=== PATIENT | male | born 1955 | race Caucasian/White ===

== ENCOUNTER 2016-08-07 09:38 | Emergency (ER) | payer MEDICARE, OTHER ==
[~2016-08-07 09:38] MED LIST: ARIC10TA PO; BETAM.05%T TOPICAL; CLOP75 PO; DEPA500T3; DIPH50TA PO; FENO145T2 PO; IBUP400T20 PO; LEVO50TA4 PO; LEXA5TAB PO; MEMA10 PO; METF500 PO; MILKSUS5 PO; NOVO7030P2 SQ; XANA0.5T PO
[2016-08-07 09:43] VITALS: BP 111/69; PULSE 74; RESP 20; O2SAT 99
[2016-08-07 09:46] VITALS: TEMP 97.7
[2016-08-07 10:08] LABS: BASOPHIL % 0.8 % (0.0-2.0); EOSINOPHIL # 0.2 TH/MM3 (0-0.4); EOSINOPHIL % 3.8 % (0.0-4.0); HEMATOCRIT 37.2 % (39.0-51.0); HEMO FLAGS DIFF FINAL; LYMPH % 24.1 % (9.0-44.0); LYMPHOCYTE # 1.1 TH/MM3 (1.0-4.8); MEAN CELL VOLUME 93.8 FL (80.0-100.0); MEAN CORPUSCULAR HEMOGLOBIN 30.8 PG (27.0-34.0); MEAN CORPUSCULAR HGB CONC 32.9 % (32.0-36.0); MONO % 8.3 % (0.0-8.0); PLATELET COUNT 169 TH/MM3 (150-450); RED BLOOD COUNT 3.96 MIL/MM3 (4.50-5.90); WHITE BLOOD COUNT 4.7 TH/MM3 (4.0-11.0)
[2016-08-07 10:18] LABS: PROTHROMBIN TIME - PATIENT 11.5 SEC (9.8-11.6)
[2016-08-07 10:19] LABS: APTT (PATIENT) 24.8 SEC (24.3-30.1)
--- NOTE | 2016-08-07 10:27 | PD ---
HPI Chief Complaint: Medical Clearance Time Seen by Provider: 09:45 Travel History International Travel<30 days: No Contact w/Intl Traveler<30days: No Traveled to known affect area: No History of Present Illness HPI 61-year-old male was brought in for local [facility] for evaluation of an equal pupils. detention staff noticed patient has unequal pupils this morning. Patient otherwise denies any new complaint. Patient denies any headache. Patient denies any visual change. Patient states that he has intermittent left-sided chest pain for the past several weeks. Patient denies abdominal pain. Patient denies any nausea vomiting diarrhea. Patient denies any fever chills. Patient denies any new focal weakness and numbness of extremity. Patient has multiple medical problem including history of psoriasis , anxiety depression, dementia, chronic tachycardia, GERD, chronic renal disease , dyslipidemia, COPD, status post CVA, status post DC, hypertension, seizure, thyroid disease, GI bleed. Patient status post bilateral cataract surgery in the past. Patient has history of CAD status post CABG and heart valve replacement. Patient is on Plavix. PFSH Past Medical History Arthritis: Yes (SCIATICA) Asthma: No Autoimmune Disease: Yes (PSORIASIS) Blood Disorders: Yes ( GI BLEED) Anxiety: Yes Depression: Yes Heart Rhythm Problems: Yes (CHRONIC TACHYCARDIA PER MEDICAL RECORD) High Cholesterol: Yes Chemotherapy: No Chest Pain: Yes COPD: Yes Cerebrovascular Accident: Yes Dementia: Yes Diminished Hearing: No Endocrine: Yes Gastrointestinal Disorders: Yes (HX GI BLEED WITH BLOOD TRANSFUSION, HEMATEMESIS) GERD: Yes Glaucoma: No Genitourinary: Yes Hepatitis: No Hiatal Hernia: No Hypertension: Yes Immune Disorder: No Implanted Vascular Access Dvce: Yes Kidney Stones: No Musculoskeletal: Yes Neurologic: Yes Reproductive: No Respiratory: Yes (HX ACENETOBACTOR BAUMANNI SPUTUM 02/2004,MRSA 01/2004) Integumentary: Yes (PSORIASIS) Myocardial Infarction: Yes Radiation Therapy: No Sickle Cell Disease: No Sleep Apnea: No Thyroid Disease: Yes Ulcer: Yes (STOMACH ) Tetanus Vaccination: < 5 Years Past Surgical History Abdominal Surgery: Yes (BOWEL RESECTION ) AICD: No Appendectomy: Yes Arteriovenous Shunt: No Body Medical Devices: HEART VALVE REPLACED Cardiac Surgery: Yes (CABG, AORTIC VALVE REPLACEMENT ) Cholecystectomy: Yes (2003) Coronary Artery Bypass Graft: Yes (2 VESSELS- 2005) Ear Surgery: Yes (CATARACTS DAY REMOVED PER MEDICAL RECORD) Endocrine Surgery: No Eye Surgery: Yes Genitourinary Surgery: No Gynecologic Surgery: No Insulin Pump: No Joint Replacement: No Oral Surgery: No Pacemaker: No Thoracic Surgery: Yes Other Surgery: Yes (PER MEDICAL RECORD) Social History Alcohol Use: No Tobacco Use: No Substance Use: No (PER MEDICAL RECORD) Allergies-Medications (Allergen,Severity, Reaction): Coded Allergies: Ambien (Verified Allergy, Severe, AGITATION/ HALLUCINATIONS, 07/25/15) Morphine (Verified Allergy, Severe, Shortness of Breath, 07/25/15) Ultram (Verified Allergy, Severe, Hives, 07/25/15) *MDRO Multi-Drug Resistant Organism (Verified Allergy, Unknown, 07/25/15) Acinetobacter baumannii MRSA Stenotrophomonas maltophilia Uncoded Allergies: BANDAIDES (Adverse Reaction, Intermediate, SKIN BLISTERS AREAS OF CONTACT, 05/04/10) TAPE-ALL EXCEPT PAPER (Adverse Reaction, Intermediate, SKIN BLISTERS AREAS OF CONTACT, 05/04/10) Reported Meds & Prescriptions Reported Meds & Active Scripts Active Namenda (Memantine HCl) 10 Mg Tab 10 Mg PO BID 15 Days Diprosone (Betamethasone Dipropionate) 15 Gm Cr 1 Applic TOPICAL BID 30 Days Plavix (Clopidogrel Bisulfate) 75 Mg Tab 37.5 Mg PO DAILY 0 Days Aricept (Donepezil HCl) 10 Mg Tab 10 Mg PO HS 15 Days Reported Milk Of Magnesia (Magnesium Hydroxide) 30 Ml Susp 30 Ml PO DAILY PRN Ibuprofen 400 Mg Tab 400 Mg PO Q8HR NEB PRN Diphenhydramine 50 mg 50 Mg Tab 50 Mg PO HS PRN Fenofibrate 145 Mg Tab 145 Mg PO DAILY Levothyroxine 50 mcg (Levothyroxine Sodium) 50 Mcg Tab 50 Mcg PO DAILY Lexapro (Escitalopram Oxalate) 5 Mg Tab 5 Mg PO DAILY Xanax 0.5 mg (Alprazolam) Alprazolam 0.5 mg Tab 1 Tab PO Q6H Depakote (Divalproex Sodium) 500 Mg Juan 3,000 Mg HS Novolin 70/30 (Insulin Human Isoph/Insulin Regular) 100 Units/Ml Inj 0 SQ DIRECTED Sliding Scale As Directed. Glucophage 500 mg (Metformin HCl) 500 Mg Tab 500 Mg PO BID Review of Systems General / Constitutional: No: Fever Eyes: No: Visual changes HENT: No: Headaches Cardiovascular: Positive: Chest Pain or Discomfort Respiratory: No: Shortness of Breath Gastrointestinal: No: Abdominal Pain Genitourinary: No: Dysuria Musculoskeletal: No: Pain Skin: No Rash Neurologic: No: Weakness Psychiatric: No: Depression Endocrine: No: Polydipsia Hematologic/Lymphatic: No: Easy Bruising Physical Exam Narrative GENERAL: Well-nourished, well-developed patient. SKIN: Warm and dry. HEAD: Normocephalic. EYES: No scleral icterus. No injection or drainage. Right eye pinpoint pupil, reactive. Left eye pupil is deformed secondary to cataract surgery. NECK: Supple, trachea midline. No JVD or lymphadenopathy. CARDIOVASCULAR: Regular rate and rhythm without murmurs, gallops, or rubs. RESPIRATORY: Breath sounds equal bilaterally. No accessory muscle use. GASTROINTESTINAL: Abdomen soft, non-tender, nondistended. MUSCULOSKELETAL: No cyanosis, or edema. BACK: Nontender without obvious deformity. No CVA tenderness. Neurologic exam: Patient's awake, oriented to place and person. Patient can move all extremity with weakness, however equally. Deep tendon reflexes +2 and equal. Negative Babinski. Data Data Last Documented VS Vital Signs Date Time Temp Pulse Resp B/P Pulse Ox O2 Delivery O2 Flow Rate FiO2 08/07/16 10:36 98 08/07/16 09:46 97.7 08/07/16 09:43 74 20 111/69 Orders Complete Blood Count With Diff (08/07/16 09:45) Comprehensive Metabolic Panel (08/07/16 09:45) Creatine Kinase (Cpk) (08/07/16 09:45) Troponin I (08/07/16 09:45) Prothrombin Time / Inr (Pt) (08/07/16 09:45) Act Partial Throm Time (Ptt) (08/07/16 09:45) Urinalysis - C+S If Indicated (08/07/16 09:45) Cath For Specimen (08/07/16 09:45) Chest, Single Ap (08/07/16 09:45) Ct Brain W/O Iv Contrast(Rout) (08/07/16 09:45) Iv Access Insert/Monitor (08/07/16 09:45) Ecg Monitoring (08/07/16 09:45) Oximetry (08/07/16 09:45) Urine Culture (08/07/16 09:55) Electrocardiogram (08/07/16 07:43) Labs Laboratory Tests Test 08/07/16 08/07/16 09:55 10:40 White Blood Count 4.7 TH/MM3 Red Blood Count 3.96 MIL/MM3 Hemoglobin 12.2 GM/DL Hematocrit 37.2 % Mean Corpuscular Volume 93.8 FL Mean Corpuscular Hemoglobin 30.8 PG Mean Corpuscular Hemoglobin 32.9 % Concent Red Cell Distribution Width 15.0 % Platelet Count 169 TH/MM3 Mean Platelet Volume 9.0 FL Neutrophils (%) (Auto) 63.0 % Lymphocytes (%) (Auto) 24.1 % Monocytes (%) (Auto) 8.3 % Eosinophils (%) (Auto) 3.8 % Basophils (%) (Auto) 0.8 % Neutrophils # (Auto) 3.0 TH/MM3 Lymphocytes # (Auto) 1.1 TH/MM3 Monocytes # (Auto) 0.4 TH/MM3 Eosinophils # (Auto) 0.2 TH/MM3 Basophils # (Auto) 0.0 TH/MM3 CBC Comment DIFF FINAL Differential Comment Prothrombin Time 11.5 SEC Prothromb Time International 1.0 RATIO Ratio Activated Partial 24.8 SEC Thromboplast Time Urine Color YELLOW Urine Turbidity HAZY Urine pH 7.5 Urine Specific Grand Chain 1.013 Urine Protein TRACE mg/dL Urine Glucose (UA) NEG mg/dL Urine Ketones NEG mg/dL Urine Occult Blood TRACE Urine Nitrite NEG Urine Bilirubin NEG Urine Urobilinogen LESS THAN 2.0 MG/DL Urine Leukocyte Esterase LARGE Urine RBC 10 /hpf Urine WBC 23 /hpf Urine Squamous Epithelial <1 /hpf Cells Urine Amorphous Sediment RARE Urine Bacteria RARE /hpf Microscopic Urinalysis Comment CULTURE INDICATED Sodium Level 144 MEQ/L Potassium Level 4.2 MEQ/L Chloride Level 108 MEQ/L Carbon Dioxide Level 28.3 MEQ/L Anion Gap 8 MEQ/L Blood Urea Nitrogen 13 MG/DL Creatinine 1.13 MG/DL Estimat Glomerular Filtration 66 ML/MIN Rate Random Glucose 122 MG/DL Calcium Level 9.0 MG/DL Total Bilirubin 0.4 MG/DL Aspartate Amino Transf 12 U/L (AST/SGOT) Alanine Aminotransferase 11 U/L (ALT/SGPT) Alkaline Phosphatase 53 U/L Total Creatine Kinase 17 U/L Troponin I LESS THAN 0.02 NG/ML Total Protein 6.3 GM/DL Albumin 2.6 GM/DL MDM Medical Decision Making Medical Screen Exam Complete: Yes Emergency Medical Condition: Yes Interpretation(s) 12:[address] of the brain shows no acute pathology. Chest x-ray shows no acute process. CBC within normal limit. CMP within normal limit. Cardiac enzymes are normal. UA positive with WBC RBC and bacteria Differential Diagnosis Differential diagnosis including dehydration, electrolyte abnormality, atypical chest pain, angina, DC, PE, pneumothorax, TIA, CVA, UTI, sepsis. Narrative Course 61-year-old male was riding by EMS for evaluation of unequal pupils. Patient status post cataract surgery. Patient also mentioned a left-sided chest pain for the past several weeks. Diagnosis Primary Impression: UTI (urinary tract infection) Qualified Code: N30.00 - Acute cystitis without hematuria Patient Instructions: General Instructions Additional Instructions: Bactrim DS as directed. Follow-up with personal physician. Return as needed. Med/Other Pt SpecificInfo: Prescription(s) given Scripts Sulfamethoxazole-Trimethoprim (Bactrim DS)800-160 Mg Tab1 Tab PO BID #14 TAB Prov:Jonathan Haro MD 08/07/16 Disposition: 01 DISCHARGE HOME Condition: Stable Jonathan Haro MD Aug 07, 2016 10:27
[2016-08-07 10:28] LABS: BACTERIA, URINE RARE /hpf; BLOOD, URINE TRACE (NEG); COMMENT (UR) CULTURE INDICATED; CULTURE IF INDICATED CULTURE INDICATED; GLUCOSE,URINE NEG (NEG); KETONE, URINE NEG (NEG); NITRITE,URINE NEG (NEG); PH, URINE 7.5 (5.0-8.5); SQUAMOUS EPITHELIAL CELL URINE <1 /hpf (0-5); URINE COLOR YELLOW (YELLW/STRAW)
[2016-08-07 10:36] VITALS: O2SAT 98
--- NOTE | 2016-08-07 10:40 | RADRPT ---
EXAM DATE/TIME: 08/07/2016 10:06 [facility] COMPARISON: CHEST SINGLE AP, April 08, 2015, 10:30. INDICATIONS : Chest Pain MEDICAL HISTORY : Hypertension. Myocardial infarction. Chronic obstructive pulmonary disease. SURGICAL HISTORY : CABG. Valve replacement ENCOUNTER: Initial ACUITY: 1 day PAIN SCORE: 7/10 LOCATION: Bilateral chest FINDINGS: A single view of the chest demonstrates the lungs to be symmetrically aerated without evidence of mas s, infiltrate or effusion. Median sternotomy wires are noted. Prosthetic aortic valve is identified. The cardiomediastinal contours are otherwise unremarkable. Osseous structures are intact. CONCLUSION: No acute disease. Status post aortic valve replacement. Boom Mcelroy MD on August 07, 2016 at 10:35 Board Certified Radiologist. This report was verified electronically.
--- NOTE | 2016-08-07 10:45 | RADRPT ---
EXAM DATE/TIME: 08/07/2016 10:30 [facility] COMPARISON: CT BRAIN W/O CONTRAST, September 17, 2015, 14:58. INDICATIONS : Altered mental status. Unequal pupils. RADIATION DOSE: 40.22 CTDIvol (mGy) MEDICAL HISTORY : Dementia. Cerebrovascular disease. Cardiovascular diseaseAnoxic brain injury. SURGICAL HISTORY : None. ENCOUNTER: Initial ACUITY: 1 day PAIN SCALE: 0/10 LOCATION: cranial TECHNIQUE: Multiple contiguous axial images were obtained of the head. Using automated exposure control and adj ustment of the mA and/or kV according to patient size, radiation dose was kept as low as reasonably a chievable to obtain optimal diagnostic quality images. FINDINGS: CEREBRUM: Periventricular areas of low-attenuation are seen. The ventricles are normal for age. No evidence of midline shift, mass lesion, hemorrhage or acute infarction. No extra-axial fluid collections are se en. POSTERIOR FOSSA: The cerebellum and brainstem are intact. The 4th ventricle is midline. The cerebellopontine angle i s unremarkable. EXTRACRANIAL: The visualized portion of the orbits is intact. SKULL: The calvaria is intact. No evidence of skull fracture. CONCLUSION: 1. Nonspecific white matter changes. 2. No acute intracranial abnormality. Salvatore Galvez MD on August 07, 2016 at 10:42 Board Certified Radiologist. This report was verified electronically.
[2016-08-07 11:15] LABS: ANION GAP 8 MEQ/L (5-15); AST (GOT) 12 U/L (15-37); BICARBONATE 28.3 MEQ/L (21.0-32.0); BLOOD UREA NITROGEN 13 MG/DL (7-18); CHLORIDE 108 MEQ/L (98-107); GLOMERULAR FILTRATION RATE 66 ML/MIN (>89); POTASSIUM 4.2 MEQ/L (3.5-5.1); SODIUM (NA) 144 MEQ/L (136-145)
[2016-08-07 11:20] LABS: ALKALINE PHOSPHATASE 53 U/L (45-117); ALT (GPT) 11 U/L (12-78); TOTAL BILIRUBIN ADULT 0.4 MG/DL (0.2-1.0)
[2016-08-07 11:27] LABS: CREATINE KINASE 17 U/L (39-308)
[2016-08-07] MEDS ORDERED: BACT800T5 PO (12:16)
[2016-08-07] MEDS ORDERED: SULFAMETHOXAZOLE-TRIMETHOPRIM DS 800-160 MG TAB PO ONE (12:30)
--- NOTE | 2016-08-07 14:58 | EKG ---
Date Performed: 08/07/2016 Time Performed: 07:43:39 PTAGE: 61 years EKG: Sinus rhythm Compared to prior tracing no significant change NORMAL ECG PREVIOUS TRACING 09/17/2015 @ 17.20.54 DOCTOR: Ran Lael Interpretating Date/Time 08/07/2016 14:54:56
[2016-08-07] MEDS ORDERED: RANI150T PO (15:41)
[2016-08-07] MEDS ORDERED: NOVORP2 SQ (15:41)
[2016-08-07] MEDS ORDERED: POTA10SO12 PO (15:53)
[2016-08-07] MEDS ORDERED: LACT10SO PO (15:56)
[2016-08-07] MEDS ORDERED: FENO48TA PO (15:56)
[2016-08-07] MEDS ORDERED: VALP250S2 PO (16:00)
[2016-08-07] MEDS ORDERED: RISP1TAB2 PO (16:00)
[2016-08-07] MEDS ORDERED: ALBU.5I NEB (16:00)
[2016-08-07] MEDS ORDERED: ALPR0.5T3 PO (16:20)
[2016-08-07] MEDS ORDERED: OMEP20TA PO (16:20)
[2016-08-07] MEDS ORDERED: CLOP75TA PO (16:20)
[2016-08-07] MEDS ORDERED: TRAZ50TA12 PO (16:20)
[2016-08-07] MEDS ORDERED: VITA1000 PO (16:20)
[2016-08-07] MEDS ORDERED: DONE10TA7 PO (16:20)
[2016-08-07] MEDS ORDERED: TRID0.1C TOPICAL (16:20)
[2016-08-07] MEDS ORDERED: LEVO50TA4 PO (16:20)
[2016-08-07] MEDS ORDERED: GLUC0.8I2 IM (16:27)
[2016-08-07] MEDS ORDERED: SKIN1CRE2 TOP (16:27)
[2016-08-07] MEDS ORDERED: NORC5TAB PO (16:27)
[2016-08-07] MEDS ORDERED: ENBR50IN2 SQ (16:27)
[2016-08-07] MEDS ORDERED: GLUC40GE PO (16:31)
[2016-08-07] MEDS ORDERED: METF500T PO (16:32)
[2016-08-07] MEDS ORDERED: IBUP400T20 PO (16:35)
[2016-08-07] MEDS ORDERED: MILKSUS PO (16:35)
== END 2016-08-07 17:25 | disposition home or self-care (01) ==
LOC: NEPA 09:38
DX: N39.0 Urinary tract infection, site not specified (principal); B96.29 Other Escherichia coli [E. coli] as the cause of diseases classified elsewhere; M54.30 Sciatica, unspecified side; L40.9 Psoriasis, unspecified; E78.00 Pure hypercholesterolemia, unspecified; I12.9 Hypertensive chronic kidney disease with stage 1 through stage 4 chronic kidney disease, or unspecified chronic kidney disease; I25.2 Old myocardial infarction; Z95.2 Presence of prosthetic heart valve; Z95.1 Presence of aortocoronary bypass graft; Z86.73 Personal history of transient ischemic attack (TIA), and cerebral infarction without residual deficits
CPT/HCPCS: 70450; 71010; 80053; 81001; 82550; 84484; 85025; 85610; 85730; 87077; 87086; 87186; 93005; 99285; P9612

== ENCOUNTER 2017-11-01 19:23 | Emergency (ER) | payer MEDICARE, OTHER ==
[~2017-11-01] VITALS: Ht 170.2 cm; Wt 80.0 kg
[~2017-11-01 19:23] MED LIST changes: +ALBU.5I NEB; +ALPR0.5T3 PO; -ARIC10TA PO; +BACT800T5 PO; -BETAM.05%T TOPICAL; -CLOP75 PO; +CLOP75TA PO; -DEPA500T3; -DIPH50TA PO; +DONE10TA7 PO; +ENBR50IN2 SQ; -FENO145T2 PO; +FENO48TA PO; +GLUC0.8I2 IM; +GLUC40GE PO; +IBUP1TAB5 PO; -IBUP400T20 PO; +LACT10SO PO; -LEXA5TAB PO; -MEMA10 PO; -METF500 PO; +METF500T PO; +MILKSUS PO; -MILKSUS5 PO; +NORC5TAB PO; -NOVO7030P2 SQ; +NOVORP2 SQ; +OMEP20TA93 PO; +POTA10SO12 PO; +RANI150T PO; +RISP1TAB2 PO; +SKIN1CRE2 TOP; +TRAZ50TA12 PO; +TRID0.1C TOPICAL; +VALP250S2 PO; +VITA1000 PO; -XANA0.5T PO
[2017-11-01 19:52] VITALS: BP 110/70; PULSE 88; RESP 18; TEMP 98.7; O2SAT 97
--- NOTE | 2017-11-01 19:53 | PD ---
HPI Chief Complaint: Grace act Time Seen by Provider: 19:39 Travel History International Travel<30 days: No Contact w/Intl Traveler<30days: No Traveled to known affect area: No History of Present Illness HPI 62-year-old white male presents emergency department from an [facility] under a Grace act by PD. Patient became aggressive and combative. He had grabbed his and would not let go. He had to be coaxed by the staff to let her go. He is brought here due to his behavioral change. Patient has a history of schizophrenia and dementia. The patient here states that he does not recall this event. He denies any medical complaints. He states that he would like to go home. No suicidal homicidal ideation. PFSH Past Medical History Arthritis: Yes (SCIATICA) Asthma: No Autoimmune Disease: Yes (PSORIASIS) Blood Disorders: Yes ( GI BLEED) Anxiety: Yes Depression: Yes Heart Rhythm Problems: Yes (CHRONIC TACHYCARDIA PER MEDICAL RECORD) High Cholesterol: Yes Chemotherapy: No Chest Pain: Yes COPD: Yes Cerebrovascular Accident: Yes Dementia: Yes Diminished Hearing: No Endocrine: Yes Gastrointestinal Disorders: Yes (HX GI BLEED WITH BLOOD TRANSFUSION, HEMATEMESIS) GERD: Yes Glaucoma: No Genitourinary: Yes Hepatitis: No Hiatal Hernia: No Hypertension: Yes Immune Disorder: No Implanted Vascular Access Dvce: Yes Kidney Stones: No Musculoskeletal: Yes Neurologic: Yes Reproductive: No Respiratory: Yes (HX ACENETOBACTOR BAUMANNI SPUTUM 02/2004,MRSA 01/2004) Integumentary: Yes (PSORIASIS) Myocardial Infarction: Yes Radiation Therapy: No Sickle Cell Disease: No Sleep Apnea: No Thyroid Disease: Yes Ulcer: Yes (STOMACH ) Past Surgical History Abdominal Surgery: Yes (BOWEL RESECTION ) AICD: No Appendectomy: Yes Arteriovenous Shunt: No Body Medical Devices: HEART VALVE REPLACED Cardiac Surgery: Yes (CABG, AORTIC VALVE REPLACEMENT ) Cholecystectomy: Yes (2003) Coronary Artery Bypass Graft: Yes (2 VESSELS- 2005) Ear Surgery: Yes (CATARACTS DAY REMOVED PER MEDICAL RECORD) Endocrine Surgery: No Eye Surgery: Yes Genitourinary Surgery: No Gynecologic Surgery: No Insulin Pump: No Joint Replacement: No Oral Surgery: No Pacemaker: No Thoracic Surgery: Yes Other Surgery: Yes (PER MEDICAL RECORD) Social History Alcohol Use: No Tobacco Use: No Substance Use: No (PER MEDICAL RECORD) Allergies-Medications (Allergen,Severity, Reaction): Coded Allergies: morphine (Unverified Allergy, Severe, Shortness of Breath, 11/01/17) tramadol (Unverified Allergy, Severe, Hives, 11/01/17) zolpidem (Unverified Allergy, Severe, AGITATION/ HALLUCINATIONS, 11/01/17) *MDRO Multi-Drug Resistant Organism (Verified Allergy, Unknown, 11/01/17) Acinetobacter baumannii MRSA Stenotrophomonas maltophilia Uncoded Allergies: BANDAIDES (Adverse Reaction, Intermediate, SKIN BLISTERS AREAS OF CONTACT, 05/04/10) TAPE-ALL EXCEPT PAPER (Adverse Reaction, Intermediate, SKIN BLISTERS AREAS OF CONTACT, 05/04/10) Reported Meds & Prescriptions Reported Meds & Active Scripts Active Bactrim DS (Sulfamethoxazole-Trimethoprim) 800-160 Mg Tab 1 Tab PO BID Reported Milk of Magnesia Liq (Magnesium Hydroxide) 400 Mg/5 Ml Susp 30 Ml PO DAILY PRN Ibuprofen 400 Mg Tab 400 Mg PO Q8H PRN Metformin (Metformin HCl) 500 Mg Tab 500 Mg PO BIDPC With meals Glucose Gel (Dextrose) 40 % Gel 1 Tube PO ONCE PRN Glucagon Inj 1 Mg/Ml Inj 1 Mg IM ONCE PRN Mather (Hydrocodone-Acetaminophen) 5-325 mg Tab 1 Tab PO Q8HR PRN Eucerin (Skin Protectants, Misc.) 1 Cre Cre 1 Applic TOP BID Enbrel PF Inj (Etanercept) 50 mg/ml Syr 50 Mg SQ WEEKLY ON MONDAYS Triderm Topical (Triamcinolone Topical) 0.1 % Cream 1 Applic TOPICAL BID D 1000 (Cholecalciferol) 1,000 Unit Tab 1,000 Units PO BID Alprazolam 0.5 Mg Tab 0.5 Mg PO BID Donepezil 10 Mg Tab 10 Mg PO HS Trazodone (Trazodone HCl) 50 Mg Tab 50 Mg PO HS Levothyroxine (Levothyroxine Sodium) 50 Mcg Tab 50 Mcg PO DAILY Clopidogrel (Clopidogrel Bisulfate) 75 Mg Tab 37.5 Mg PO DAILY Omeprazole 20 Mg Tab 20 Mg PO DAILY Valproic Acid Liq 250 Mg/5 Ml Syp 1,500 Mg PO HS Risperidone 1 Mg Tab 1 Mg PO BID Albuterol Neb (Albuterol Sulfate) 2.5 Mg/0.5 Ml Neb 2.5 Mg NEB Q6HR PRN Note: The Albuterol Sulfate Inhalation Solution is concentrated and must be diluted. Read complete instructions carefully before using. Lactulose Liq (Lactulose) 10 Gm/15 Ml Soln 20 Gm PO TID Fenofibrate 48 Mg Tab 96 Mg PO DAILY Potassium Chloride Liq (Potassium Chloride) 20 Meq/15 Ml Soln 10 Meq PO DAILY Novolin R Inj (Insulin Human Regular) 1,000 Unit/10 Ml Vial 3-18 Units SQ ACHS Max dose at bedtime:( )units; sugars less than 70,(0) units; sugars 151-200,(3)unit; sugars 201-250,(5)units; sugars 251-300,(8) units; sugars 301-350,(10)units; sugars 351 -400,(12) units; sugars 401-450, (15) units & call MD; sugars 451-500, (18) units & call MD. > 500 CALL MD. Ranitidine (Ranitidine HCl) 150 Mg Tab 150 Mg PO DAILY @ 1700 Review of Systems ROS Limitations: Poor Historian Physical Exam Narrative GENERAL: Well-nourished, well-developed patient. SKIN: Warm and dry. Dry scaly skin HEAD: Normocephalic and atraumatic. EYES: No scleral icterus. No injection or drainage. ENT: No nasal drainage noted. Mucous membranes pink. Airway patent. NECK: Supple, trachea midline. Moves head freely without obvious discomfort. CARDIOVASCULAR: Regular rate and rhythm without murmurs, gallops, or rubs. RESPIRATORY: Breath sounds equal bilaterally. No accessory muscle use. GASTROINTESTINAL: Abdomen soft, non-tender, nondistended. EXTREMITIES: No cyanosis or edema. BACK: Nontender without obvious deformity. No CVA tenderness. NEURO: Patient is alert and oriented to person. no sensorimotor deficits. Nonfocal. Normal speech. Data Data Last Documented VS Vital Signs Date Time Temp Pulse Resp B/P (MAP) Pulse Ox O2 Delivery O2 Flow Rate FiO2 11/01/17 19:52 98.7 88 18 110/70 (83) 97 Orders Orders Complete Blood Count With Diff (11/01/17 19:45) Comprehensive Metabolic Panel (11/01/17 19:45) Thyroid Stimulating Hormone (11/01/17 19:45) Psych Screen (11/01/17 19:45) Drug Screen, Random Urine (11/01/17 19:45) Alcohol (Ethanol) (11/01/17 19:45) Olanzapine Inj (Zyprexa Inj) (11/01/17 21:30) Insulin Human Regular Inj (Novolin R Inj (11/01/17 22:15) Labs Laboratory Tests Test 11/01/17 20:33 11/01/17 20:40 White Blood Count 6.6 TH/MM3 Red Blood Count 4.59 MIL/MM3 Hemoglobin 12.6 GM/DL Hematocrit 36.4 % Mean Corpuscular Volume 79.2 FL Mean Corpuscular Hemoglobin 27.4 PG Mean Corpuscular Hemoglobin Concent 34.6 % Red Cell Distribution Width 15.6 % Platelet Count 242 TH/MM3 Mean Platelet Volume 8.2 FL Neutrophils (%) (Auto) 69.3 % Lymphocytes (%) (Auto) 16.3 % Monocytes (%) (Auto) 11.1 % Eosinophils (%) (Auto) 2.7 % Basophils (%) (Auto) 0.6 % Neutrophils # (Auto) 4.6 TH/MM3 Lymphocytes # (Auto) 1.1 TH/MM3 Monocytes # (Auto) 0.7 TH/MM3 Eosinophils # (Auto) 0.2 TH/MM3 Basophils # (Auto) 0.0 TH/MM3 CBC Comment DIFF FINAL Differential Comment Blood Urea Nitrogen 23 MG/DL Creatinine 1.27 MG/DL Random Glucose 257 MG/DL Total Protein 7.3 GM/DL Albumin 3.6 GM/DL Calcium Level 8.9 MG/DL Alkaline Phosphatase 72 U/L Aspartate Amino Transf (AST/SGOT) 12 U/L Alanine Aminotransferase (ALT/SGPT) 18 U/L Total Bilirubin 0.2 MG/DL Sodium Level 138 MEQ/L Potassium Level 4.1 MEQ/L Chloride Level 103 MEQ/L Carbon Dioxide Level 24.7 MEQ/L Anion Gap 10 MEQ/L Estimat Glomerular Filtration Rate 57 ML/MIN Thyroid Stimulating Hormone 3rd Gen 0.860 uIU/ML Ethyl Alcohol Level LESS THAN 3 MG/DL Urine Opiates Screen NEG Urine Barbiturates Screen NEG Urine Amphetamines Screen NEG Urine Benzodiazepines Screen POS Urine Cocaine Screen NEG Urine Cannabinoids Screen NEG MDM Medical Decision Making Medical Screen Exam Complete: Yes Emergency Medical Condition: Yes Medical Record Reviewed: Yes Interpretation(s) Laboratory Tests Test 11/01/17 20:33 11/01/17 20:40 White Blood Count 6.6 TH/MM3 Red Blood Count 4.59 MIL/MM3 Hemoglobin 12.6 GM/DL Hematocrit 36.4 % Mean Corpuscular Volume 79.2 FL Mean Corpuscular Hemoglobin 27.4 PG Mean Corpuscular Hemoglobin Concent 34.6 % Red Cell Distribution Width 15.6 % Platelet Count 242 TH/MM3 Mean Platelet Volume 8.2 FL Neutrophils (%) (Auto) 69.3 % Lymphocytes (%) (Auto) 16.3 % Monocytes (%) (Auto) 11.1 % Eosinophils (%) (Auto) 2.7 % Basophils (%) (Auto) 0.6 % Neutrophils # (Auto) 4.6 TH/MM3 Lymphocytes # (Auto) 1.1 TH/MM3 Monocytes # (Auto) 0.7 TH/MM3 Eosinophils # (Auto) 0.2 TH/MM3 Basophils # (Auto) 0.0 TH/MM3 CBC Comment DIFF FINAL Differential Comment Blood Urea Nitrogen 23 MG/DL Creatinine 1.27 MG/DL Random Glucose 257 MG/DL Total Protein 7.3 GM/DL Albumin 3.6 GM/DL Calcium Level 8.9 MG/DL Alkaline Phosphatase 72 U/L Aspartate Amino Transf (AST/SGOT) 12 U/L Alanine Aminotransferase (ALT/SGPT) 18 U/L Total Bilirubin 0.2 MG/DL Sodium Level 138 MEQ/L Potassium Level 4.1 MEQ/L Chloride Level 103 MEQ/L Carbon Dioxide Level 24.7 MEQ/L Anion Gap 10 MEQ/L Estimat Glomerular Filtration Rate 57 ML/MIN Thyroid Stimulating Hormone 3rd Gen 0.860 uIU/ML Ethyl Alcohol Level LESS THAN 3 MG/DL Urine Opiates Screen NEG Urine Barbiturates Screen NEG Urine Amphetamines Screen NEG Urine Benzodiazepines Screen POS Urine Cocaine Screen NEG Urine Cannabinoids Screen NEG Differential Diagnosis MDM: High Differential diagnoses: Schizophrenia, schizoaffective disorder, bipolar, anxiety, depression, adjustment reaction, mood disorder NOS, ODD, depressive disorder NOS, dementia, dementia with agitation, psychosis NOS, substance induced mood disorder, DMDD, Asperger syndrome, infection,electrolyte abnormality, malingering. Narrative Course Mental health screening discussed with the patient. Psychiatric screen ordered. The patient is given Zyprexa 10 mg IM. He has become increasingly agitated and becoming a barrier of his care. The patient is also given 2 units of regular insulin subcu. The patient has been medically cleared. This is medical clearance for psychiatric admission Diagnosis Primary Impression: Medical clearance for psychiatric admission Condition: Stable Teja Hawthorne Nov 01, 2017 19:53
[2017-11-01 21:16] LABS: AUTOMATED NEUTROPHIL # 4.6 TH/MM3 (1.8-7.7); BASOPHIL % 0.6 % (0.0-2.0); EOSINOPHIL # 0.2 TH/MM3 (0-0.4); EOSINOPHIL % 2.7 % (0.0-4.0); HEMATOCRIT 36.4 % (39.0-51.0); HEMOGLOBIN 12.6 GM/DL (13.0-17.0); LYMPH % 16.3 % (9.0-44.0); LYMPHOCYTE # 1.1 TH/MM3 (1.0-4.8); MEAN CELL VOLUME 79.2 FL (80.0-100.0); MEAN CORPUSCULAR HEMOGLOBIN 27.4 PG (27.0-34.0); MEAN CORPUSCULAR HGB CONC 34.6 % (32.0-36.0); MEAN PLATELET VOLUME 8.2 FL (7.0-11.0); MONO % 11.1 % (0.0-8.0); MONOCYTE # 0.7 TH/MM3 (0-0.9); NEUT % 69.3 % (16.0-70.0); PLATELET COUNT 242 TH/MM3 (150-450); RED BLOOD COUNT 4.59 MIL/MM3 (4.50-5.90); RED CELL DISTRIBUTION WIDTH 15.6 % (11.6-17.2); WHITE BLOOD COUNT 6.6 TH/MM3 (4.0-11.0)
[2017-11-01] MEDS ORDERED: OLANZapine IM 10 MG VIAL IM ONE (21:30)
[2017-11-01 21:36] LABS: ALBUMIN 3.6 GM/DL (3.4-5.0); AST (GOT) 12 U/L (15-37); BICARBONATE 24.7 MEQ/L (21.0-32.0); BLOOD UREA NITROGEN 23 MG/DL (7-18); CALCIUM 8.9 MG/DL (8.5-10.1); CHLORIDE 103 MEQ/L (98-107); CREATININE 1.27 MG/DL (0.60-1.30); GLOMERULAR FILTRATION RATE 57 ML/MIN (>89); GLUCOSE,RANDOM 257 MG/DL (74-106); SODIUM (NA) 138 MEQ/L (136-145)
[2017-11-01 21:37] LABS: ALT (GPT) 18 U/L (12-78)
[2017-11-01 21:46] LABS: ALKALINE PHOSPHATASE 72 U/L (45-117); TOTAL BILIRUBIN ADULT 0.2 MG/DL (0.2-1.0); TOTAL PROTEIN 7.3 GM/DL (6.4-8.2)
[2017-11-01] MEDS ORDERED: INSULIN HUMAN REGULAR 1,000 UNITS/10 ML VIAL SQ ONE (22:15)
[2017-11-02] MEDS ORDERED: GLIP5TAB8 PO (00:37)
[2017-11-02] MEDS ORDERED: SERO200T PO (00:37)
[2017-11-02] MEDS ORDERED: LORazepam 2 MG/ML VIAL IM ONE (01:30)
[2017-11-02 02:27] VITALS: BP 127/72; PULSE 65; RESP 18; TEMP 98.6; O2SAT 98
[2017-11-02 06:26] VITALS: RESP 18
--- NOTE | 2017-11-02 09:03 | PD.PSY.CON ---
Provisional Diagnosis Admission Date Date of consultation 11/02/2017 [place] I. 1. Dementia due to a history of anoxic brain injury [place] II. Deferred History of Present Illness Service Psychiatry Consult Requested By Emergency department Reason for Consult Grace act Primary Care Physician No Primary Care Physician HPI Mr. Ochoa is a 62-year-old male with a history of dementia secondary to anoxic brain injury who presents under a Grace act by law enforcement alleging that the patient became combative in the setting of a visit with his at his [facility]. Patient is known to me from previous psychiatric hospitalizations. Reviewing electronic medical record, I note that the patient was most recently admitted to the inpatient psychiatric unit here under my care in 2016. Patient seen and examined. Chart reviewed. Case discussed with nursing staff. Nurse has endeavored to obtain collateral information from patient's facility repeatedly but seems to be getting the run around. Nurse reports that patient was given Zyprexa IM overnight chiefly for wandering behavior. He presented no behavioral problem thereafter. On my examination this morning, the patient is calm and cooperative. He says that he has no recollection of the circumstances of his presentation here and is in general quite forgetful. When I review with him the text of the Grace act, he tells me "one time we were at a [employer] [place] and a lot of large females came in" and then rambles about his in a manner that is difficult to follow. When I ask about current suicidal or homicidal ideation, intent or plan the patient says "oh, gosh no!" He denies any audiovisual hallucinations. Mood is "normal" and besides some reported difficulties with sleep I can elicit no depressive or hypomanic/manic symptoms. He denies any side effects from medications. Remainder of the psychiatric ROS is negative. No acute physical complaints. I am unable to obtain any meaningful past psychiatric, family, chemical dependency or social history on the patient presently because of his degree of cognitive impairment. Review of Systems ROS Limitations: Poor Historian Except as stated in HPI: all other systems reviewed are Neg Past Family Social History Coded Allergies: morphine (Unverified Allergy, Severe, Shortness of Breath, 11/01/17) tramadol (Unverified Allergy, Severe, Hives, 11/01/17) zolpidem (Unverified Allergy, Severe, AGITATION/ HALLUCINATIONS, 11/01/17) *MDRO Multi-Drug Resistant Organism (Verified Allergy, Unknown, 11/01/17) Acinetobacter baumannii MRSA Stenotrophomonas maltophilia Uncoded Allergies: BANDAIDES (Adverse Reaction, Intermediate, SKIN BLISTERS AREAS OF CONTACT, 05/04/10) TAPE-ALL EXCEPT PAPER (Adverse Reaction, Intermediate, SKIN BLISTERS AREAS OF CONTACT, 05/04/10) Past Medical History See electronic medical record Active Scripts Sulfamethoxazole-Trimethoprim (Bactrim DS) 800-160 Mg Tab, 1 TAB PO BID for Infection, #14 TAB Prov:Jonathan Haro MD 08/07/16 Reported Medications Quetiapine (Seroquel) 200 Mg Tab, 200 MG PO TID, #60 TAB 0 Refills 11/02/17 Glipizide (Glipizide) 5 Mg Tab, 5 MG PO BIDAC for Blood Sugar Management, #60 TAB 0 Refills Take 30 minutes before a meal 11/02/17 Magnesium Hydroxide Liq (Milk of Magnesia Liq) 400 Mg/5 Ml Susp, 30 ML PO DAILY Y for CONSTIPATION, #30 ML 0 Refills 08/07/16 Ibuprofen (Ibuprofen) 400 Mg Tab, 400 MG PO Q8H Y for PAIN SCALE 6 TO 10, TAB 0 Refills 08/07/16 Metformin (Metformin) 500 Mg Tab, 500 MG PO BIDPC for DM TYPE 2, #60 TAB 0 Refills With meals 08/07/16 Dextrose Gel (Glucose Gel) 40 % Gel, 1 TUBE PO ONCE Y for CBG<60MG/DL & PT ALERT , #3 TUBE 0 Refills 08/07/16 Glucagon Inj (Glucagon Inj) 1 Mg/Ml Inj, 1 MG IM ONCE Y for CBG <60MG/DL & PT UNRESPONSIVE, #1 VIAL 0 Refills 08/07/16 Hydrocodone-Acetaminophen ([place]) 5-325 mg Tab, 1 TAB PO Q8HR Y for PAIN, TAB 0 Refills 08/07/16 Etanercept PF Inj (Enbrel PF Inj) 50 mg/ml Syr, 50 MG SQ WEEKLY ON MONDAYS, #4 SYRINGE 0 Refills 08/07/16 Triamcinolone Topical (Triderm Topical) 0.1 % Cream, 1 APPLIC TOPICAL BID for PSORIASIS, GM 0 Refills 08/07/16 Cholecalciferol (D 1000) 1,000 Unit Tab, 1000 UNITS PO BID 3/14/17 Alprazolam (Alprazolam) 0.5 Mg Tab, 0.5 MG PO BID for Anxiety, TAB 0 Refills 08/07/16 Donepezil (Donepezil) 10 Mg Tab, 10 MG PO HS for Dementia, #30 TAB 0 Refills 08/07/16 Trazodone (Trazodone) 50 Mg Tab, 50 MG PO HS for MDD, #30 TAB 0 Refills 08/07/16 Levothyroxine (Levothyroxine) 50 Mcg Tab, 50 MCG PO DAILY for Thyroid, #30 TAB 0 Refills 08/07/16 Clopidogrel (Clopidogrel) 75 Mg Tab, 37.5 MG PO DAILY for ASCVD, #30 TAB 0 Refills 08/07/16 Omeprazole (Omeprazole) 20 Mg Tab, 20 MG PO DAILY for GERD, #30 TAB 0 Refills 08/07/16 Valproic Acid Liq (Valproic Acid Liq) 250 Mg/5 Ml Syp, 1500 MG PO HS for DEMENTIA, #300 ML 0 Refills 08/07/16 Risperidone (Risperidone) 1 Mg Tab, 1 MG PO BID for SCHIZOPHRENIA/AGGRESSION, # 60 TAB 0 Refills 08/07/16 Albuterol Neb (Albuterol Neb) 2.5 Mg/0.5 Ml Neb, 2.5 MG NEB Q6HR Y for SOB., #1 NEBULE 0 Refills Note: The Albuterol Sulfate Inhalation Solution is concentrated and must be diluted. Read complete instructions carefully before using. 08/07/16 Lactulose Liq (Lactulose Liq) 10 Gm/15 Ml Soln, 20 GM PO TID for HIGH AMMONIA LEVELS, ML 0 Refills 08/07/16 Fenofibrate (Fenofibrate) 48 Mg Tab, 96 MG PO DAILY, #30 TAB 0 Refills 08/07/16 Potassium Chloride Liq (Potassium Chloride Liq) 20 Meq/15 Ml Soln, 10 MEQ PO DAILY for HYPOKALEMIA, ML 0 Refills 08/07/16 Insulin Human Regular Inj (Novolin R Inj) 1,000 Unit/10 Ml Vial, 3-18 UNITS SQ ACHS for Blood Sugar Management, #10 ML 0 Refills Max dose at bedtime:( )units; sugars less than 70,(0) units; sugars 151-200,(3)unit; sugars 201-250,(5)units; sugars 251-300,(8) units; sugars 301-350,(10)units; sugars 351 -400,(12) units; sugars 401-450, (15) units & call MD; sugars 451-500, (18) units & call MD. > 500 CALL MD. 08/07/16 Ranitidine (Ranitidine) 150 Mg Tab, 150 MG PO DAILY @ 1700 for Heartburn Management, #30 TAB 0 Refills 08/07/16 Discontinued Reported Medications Skin Protectants, Misc. (Eucerin) 1 Cre Cre, 1 APPLIC TOP BID for PSORIASIS 08/07/16 See above Patient's Strengths (min. 2) Lives in structured living environment. Verbally fluent. Physical Exam Physical exam completed by ED provider. On my examination today, the patient appears to be in no acute physical distress. No motor abnormalities noted. Labs and vitals reviewed: Vital Signs Vital Signs Date Time Temp Pulse Resp B/P (MAP) Pulse Ox O2 Delivery O2 Flow Rate FiO2 11/02/17 06:26 18 Room Air 11/02/17 02:27 98.6 65 98 Lab Results Test 11/01/17 20:33 11/01/17 20:40 White Blood Count 6.6 TH/MM3 Red Blood Count 4.59 MIL/MM3 Hemoglobin 12.6 GM/DL Hematocrit 36.4 % Mean Corpuscular Volume 79.2 FL Mean Corpuscular Hemoglobin 27.4 PG Mean Corpuscular Hemoglobin Concent 34.6 % Red Cell Distribution Width 15.6 % Platelet Count 242 TH/MM3 Mean Platelet Volume 8.2 FL Neutrophils (%) (Auto) 69.3 % Lymphocytes (%) (Auto) 16.3 % Monocytes (%) (Auto) 11.1 % Eosinophils (%) (Auto) 2.7 % Basophils (%) (Auto) 0.6 % Neutrophils # (Auto) 4.6 TH/MM3 Lymphocytes # (Auto) 1.1 TH/MM3 Monocytes # (Auto) 0.7 TH/MM3 Eosinophils # (Auto) 0.2 TH/MM3 Basophils # (Auto) 0.0 TH/MM3 CBC Comment DIFF FINAL Differential Comment Blood Urea Nitrogen 23 MG/DL Creatinine 1.27 MG/DL Random Glucose 257 MG/DL Total Protein 7.3 GM/DL Albumin 3.6 GM/DL Calcium Level 8.9 MG/DL Alkaline Phosphatase 72 U/L Aspartate Amino Transf (AST/SGOT) 12 U/L Alanine Aminotransferase (ALT/SGPT) 18 U/L Total Bilirubin 0.2 MG/DL Sodium Level 138 MEQ/L Potassium Level 4.1 MEQ/L Chloride Level 103 MEQ/L Carbon Dioxide Level 24.7 MEQ/L Anion Gap 10 MEQ/L Estimat Glomerular Filtration Rate 57 ML/MIN Thyroid Stimulating Hormone 3rd Gen 0.860 uIU/ML Valproic Acid (Depakene) Level 39 MCG/ML Ethyl Alcohol Level LESS THAN 3 MG/DL Urine Opiates Screen NEG Urine Barbiturates Screen NEG Urine Amphetamines Screen NEG Urine Benzodiazepines Screen POS Urine Cocaine Screen NEG Urine Cannabinoids Screen NEG Mental Status Examination Appearance: Disheveled (Mild) Consciousness: Alert Orientation: Person (only) Motor Activity: Other (No abnmormal motor movements noted) Speech: Unremarkable Language: Other (rambling) Fund of Knowledge: Inadequate Attention and Concentration: Inadequate Memory: Impaired Mood: Appropriate, Other (calm) Affect: Appropriate Thought Process & Associations: Tangential (In setting of dementia) Thought Content: Appropriate Hallucination Type: None Delusion Type: None Suicidal Ideation: No Suicidal Plan: No Suicidal Intention: No Homicidal Ideation: No Homicidal Plan: No Homicidal Intention: No Insight: Poor (Chronic condition) Judgment: Poor (Chronic condition) Assessment & Plan Problem List: (1) Dementia due to another general medical condition ICD Codes: F02.80 - Dementia due to another general medical condition Status: Acute (2) History of anoxic brain injury Assessment & Plan 62-year-old male with psychiatric history as detailed above who presents under Grace act. On my examination today, the patient is calm and remains at his confused baseline. Grace act alleges aggression in the setting of a visit with his , and if my memory serves, has previously been a touch point for patient's aggressive behavior. There is nothing presently to suggest that the patient has been more globally aggressive or violent. Therefore, a nonpharmacologic remedy of simply supervising or perhaps limiting visits with presents itself as the obvious solution to this issue; I have instructed the nursing staff to relay this recommendation to the facility once nurse is finally able to reach someone at facility who is involved in patient's care. The patient does not require, nor would he likely benefit from psychiatric hospitalization at this time, and his issues can be managed in a less restrictive setting than the inpatient unit. I will therefore lift the Grace act. Patient should follow up with outpatient provider and return to the ED for any concerning psychiatric symptoms. Patient should continue with current psychotropic regimen. Patient is otherwise psychiatrically clear for discharge from the ED. Thank you very much for this consultation. Problem Qualifiers (1) Dementia due to another general medical condition: Qualified Codes: F02.80 - Dementia in other diseases classified elsewhere without behavioral disturbance Mauro Wallace MD Nov 02, 2017 09:03
[2017-11-02 14:35] VITALS: BP 124/82; PULSE 75; RESP 20; TEMP 98.6; O2SAT 100
[2017-11-02 18:30] VITALS: BP 117/65; PULSE 75; RESP 18; O2SAT 99
--- NOTE | 2017-11-02 18:55 | PD ---
Physical Exam Time Seen by Provider: 18:55 Narrative Please refer to previous providers documentation for details surrounding the patient's current visit. Data Data Last Documented VS Vital Signs Date Time Temp Pulse Resp B/P (MAP) Pulse Ox O2 Delivery O2 Flow Rate FiO2 11/02/17 18:30 75 18 117/65 (82) 99 Room Air 11/02/17 14:35 98.6 Orders Orders Complete Blood Count With Diff (11/01/17 19:45) Comprehensive Metabolic Panel (11/01/17 19:45) Thyroid Stimulating Hormone (11/01/17 19:45) Psych Screen (11/01/17 19:45) Drug Screen, Random Urine (11/01/17 19:45) Alcohol (Ethanol) (11/01/17 19:45) Olanzapine Inj (Zyprexa Inj) (11/01/17 21:30) Insulin Human Regular Inj (Novolin R Inj (11/01/17 22:15) Diet Diabetic (11/02/17 Breakfast) Valproic Acid (Depakene) (11/02/17 01:06) Lorazepam Inj (Ativan Inj) (11/02/17 01:30) Case Management Consult (11/02/17 ) Diet 1800 Ada Cons Carb (11/02/17 Lunch) Diet 1800 Ada Cons Carb (11/02/17 Dinner) Ed Discharge Order (11/02/17 18:54) Labs Laboratory Tests Test 11/01/17 20:33 11/01/17 20:40 White Blood Count 6.6 TH/MM3 Red Blood Count 4.59 MIL/MM3 Hemoglobin 12.6 GM/DL Hematocrit 36.4 % Mean Corpuscular Volume 79.2 FL Mean Corpuscular Hemoglobin 27.4 PG Mean Corpuscular Hemoglobin Concent 34.6 % Red Cell Distribution Width 15.6 % Platelet Count 242 TH/MM3 Mean Platelet Volume 8.2 FL Neutrophils (%) (Auto) 69.3 % Lymphocytes (%) (Auto) 16.3 % Monocytes (%) (Auto) 11.1 % Eosinophils (%) (Auto) 2.7 % Basophils (%) (Auto) 0.6 % Neutrophils # (Auto) 4.6 TH/MM3 Lymphocytes # (Auto) 1.1 TH/MM3 Monocytes # (Auto) 0.7 TH/MM3 Eosinophils # (Auto) 0.2 TH/MM3 Basophils # (Auto) 0.0 TH/MM3 CBC Comment DIFF FINAL Differential Comment Blood Urea Nitrogen 23 MG/DL Creatinine 1.27 MG/DL Random Glucose 257 MG/DL Total Protein 7.3 GM/DL Albumin 3.6 GM/DL Calcium Level 8.9 MG/DL Alkaline Phosphatase 72 U/L Aspartate Amino Transf (AST/SGOT) 12 U/L Alanine Aminotransferase (ALT/SGPT) 18 U/L Total Bilirubin 0.2 MG/DL Sodium Level 138 MEQ/L Potassium Level 4.1 MEQ/L Chloride Level 103 MEQ/L Carbon Dioxide Level 24.7 MEQ/L Anion Gap 10 MEQ/L Estimat Glomerular Filtration Rate 57 ML/MIN Thyroid Stimulating Hormone 3rd Gen 0.860 uIU/ML Valproic Acid (Depakene) Level 39 MCG/ML Ethyl Alcohol Level LESS THAN 3 MG/DL Urine Opiates Screen NEG Urine Barbiturates Screen NEG Urine Amphetamines Screen NEG Urine Benzodiazepines Screen POS Urine Cocaine Screen NEG Urine Cannabinoids Screen NEG MDM Medical Record Reviewed: Yes Supervised Visit with NIKKI: No Narrative Course Patient has been medically cleared, seen and evaluated by psychiatry, Grace act has been lifted. Patient will be discharged to his place of residence at this time. Diagnosis Primary Impression: Medical clearance for psychiatric admission Additional Impression: Dementia due to another general medical condition Qualified Codes: F02.80 - Dementia in other diseases classified elsewhere without behavioral disturbance Patient Instructions: General Instructions, Dementia (ED) Departure Forms: Tests/Procedures Disposition: 01 DISCHARGE HOME Condition: Stable AntonyKarlene MCKOY Nov 02, 2017 18:55
== END 2017-11-02 18:57 | disposition home or self-care (01) ==
LOC: NEPD 19:23 → NEPJ 11-02 18:57
DX: S06.890S Other specified intracranial injury without loss of consciousness, sequela (principal); F02.80 Dementia in other diseases classified elsewhere, unspecified severity, without behavioral disturbance, psychotic disturbance, mood disturbance, and anxiety; K21.9 Gastro-esophageal reflux disease without esophagitis; L40.9 Psoriasis, unspecified; X58.XXXS Exposure to other specified factors, sequela; Z79.899 Other long term (current) drug therapy
CPT/HCPCS: 80053; 80164; 80307; 84443; 85025; 96372; 99284; J1815; J2060

== ENCOUNTER 2018-01-07 21:34 | Inpatient (IN) ==
--- NOTE | 2018-01-07 22:10 | ED ---
HPI General Chief complaint: Psychiatric Symptoms Stated complaint: OMBPD/Psych Eval Time Seen by Provider: 01/07/18 22:06 History of Present Illness HPI narrative: This is a 62-year-old male with reported history of dementia and schizoaffective disorder. He is a resident at [facility]. He presents under [place] act [place] the [employer]. According to his paperwork he was being combative with staff at the care home. The patient denies this , he is under the impression that he is on staff there. 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 Symptoms are moderate, likely aggravated by dementia. No other complaints. Related Data Home Medications Medication Instructions Recorded Confirmed Abh Gel 1 ml TOPICAL Q6H 01/07/18 01/07/18 acetaminophen [Tylenol] 650 mg PO Q8H PRN 01/07/18 01/07/18 alprazolam [Xanax] 2 mg PO TID 01/07/18 01/07/18 cholecalciferol (vitamin D3) 1,000 unit PO BID 01/07/18 01/07/18 clopidogrel 75 mg PO DAILY 01/07/18 01/07/18 donepezil 10 mg PO DAILY 01/07/18 01/07/18 etanercept [Enbrel] 1 ml SUB-Q QWEEK 01/07/18 01/07/18 glipizide 5 mg PO BID 01/07/18 01/07/18 hydrocodone-acetaminophen [[place]] 1 tab PO TID 01/07/18 01/07/18 insulin aspart U-100 [Novolog See Protocol SUB-Q BID 01/07/18 01/07/18 Flexpen U-100 Insulin] levothyroxine 88 mcg PO DAILY 01/07/18 01/07/18 loperamide [Imodium A-D] 2 mg PO Q6H PRN 01/07/18 01/07/18 magnesium hydroxide 30 ml PO DAILY PRN 01/07/18 01/07/18 metformin 1,000 mg PO BID 01/07/18 01/07/18 oxycodone-acetaminophen [Percocet] 1 tab PO Q6H PRN 01/07/18 01/07/18 quetiapine [Seroquel] 200 mg PO QID 01/07/18 01/07/18 valproate sodium 250 mg IV DAILY 01/07/18 01/07/18 valproic acid (as sodium salt) 250 mg PO DAILY 01/07/18 01/07/18 Allergies Allergy/AdvReac Type Severity Reaction Status Date / Time morphine Allergy Severe Shortness Verified 01/07/18 21:55 of Breath tramadol Allergy Severe Hives Verified 01/07/18 21:55 zolpidem Allergy Severe AGITATION/ Verified 01/07/18 21:55 HALLUCINATIONS *MDRO Multi-Drug Resistant Allergy Unknown Weakness Uncoded 01/07/18 21:55 Organism BANDAIDES AdvReac Intermediate SKIN Uncoded 01/07/18 21:55 BLISTERS AREAS OF CONTACT TAPE-ALL EXCEPT PAPER AdvReac Intermediate SKIN Uncoded 01/07/18 21:55 BLISTERS AREAS OF CONTACT Review of Systems ROS Unobtainable ROS Unobtainable: other (Limited by dementia) ROS: all other systems reviewed are negative [facility] Medical History Medical History Dementia (Acute) Chronic kidney disease (Acute) Dysphagia (Acute) Hypercalcemia (Acute) Hyperosmolality and hypernatremia (Acute) Hyperlipidemia (Acute) Dysarthria (Acute) Cerebral infarction (Acute) Paranoid schizophrenia (Acute) Hypertension (Acute) Acidosis (Acute) Alzheimers disease (Acute) Arthritic-like pain (Acute) Constipation (Acute) Depression (Acute) Diabetes (Acute) GERD (gastroesophageal reflux disease) (Acute) Hypothyroidism (Acute) Insomnia (Acute) Psoriasis (Acute) Social History Social History Substance History: No History of Abuse Second Hand Smoke Exposure: Yes Smoking Status: Never smoker How Often Do You Have a Drink Containing Alcohol: Never Recent Travel in [facility] within the Last 8 Weeks: No Recent Out of Country Travel within the Last 8 Weeks: No Exam Narrative Exam Narrative: GENERAL: Well-developed well-nourished male no acute distress. SKIN: Warm and dry. HEAD: Atraumatic. Normocephalic. EYES: Pupils equal and round. No scleral icterus. No injection or drainage. ENT: No nasal bleeding or discharge. Mucous membranes pink and moist. NECK: Trachea midline. No JVD. CARDIOVASCULAR: Regular rate and rhythm. No murmur appreciated. RESPIRATORY: No accessory muscle use. Clear to auscultation. Breath sounds equal bilaterally. GASTROINTESTINAL: Abdomen soft, non-tender, nondistended. Hepatic and splenic margins not palpable. MUSCULOSKELETAL: No obvious deformities. No clubbing. No cyanosis. No edema. NEUROLOGICAL: Awake and alert. No obvious cranial nerve deficits. Motor grossly within normal limits. Normal speech. Course Initial Documented Vital Signs Temperature 98.4 F 01/07/18 21:47 Pulse Rate 111 H 01/07/18 21:47 Respiratory Rate 18 01/07/18 21:47 Blood Pressure 115/70 01/07/18 21:47 Pulse Oximetry 97 01/07/18 21:47 Last Documented Vital Signs Temperature 98 F 01/07/18 23:05 Pulse Rate 98 H 01/07/18 23:05 Respiratory Rate 20 01/07/18 23:05 Blood Pressure 136/72 01/07/18 23:05 Pulse Oximetry 98 01/07/18 23:05 Medical Decision Making MDM Narrative Medical decision making narrative: Mental health screening discussed with the patient. Psychiatric screen ordered. Lab work reviewed, initial blood sugar 320, after insulin bolus was administered it has improved 186. The patient is medically cleared. Medical Screen Exam Complete: Yes Emergency Medical Condition: Yes Differential Diagnosis Differential Diagnosis: Dementia, acute psychosis, schizophrenia, schizoaffective disorder Lab Data Result diagrams: 01/07/18 22:05 01/07/18 22:05 Lab Results 01/07/18 01/07/18 01/07/18 Range/Units 22:05 22:05 22:45 WBC 6.8 (4.0-11.0) th/mm3 RBC 5.20 (4.50-5.90) mil/mm3 Hgb 14.4 (13.0-17.0) gm/dL Hct 42.4 (39.0-51.0) % MCV 81.6 (80.0-100.0) fL MCH 27.7 (27.0-34.0) pg MCHC 33.9 (32.0-36.0) % RDW 15.8 (11.6-17.2) % Plt Count 201 (150-450) th/mm3 MPV 8.2 (7.0-11.0) fL Neut % (Auto) 68.6 (16.0-70.0) % Lymph % (Auto) 13.1 (9.0-44.0) % [place] % (Auto) 9.0 H (0.0-8.0) % Eos % (Auto) 8.6 H (0.0-4.0) % Baso % (Auto) 0.7 (0.0-2.0) % Neut # (Auto) 4.7 (1.8-7.7) th/mm3 Lymph # (Auto) 0.9 L (1.0-4.8) th/mm3 [place] # (Auto) 0.6 (0.0-0.9) th/mm3 Eos # (Auto) 0.6 H (0.0-0.4) th/mm3 Baso # (Auto) 0.0 (0.0-0.2) th/mm3 WBC Differential . Differential Comment Auto diff final Sodium 136 (136-145) meq/L Potassium 4.0 (3.5-5.1) meq/L Chloride 102 (98-107) meq/L Carbon Dioxide 24.4 (21.0-32.0) meq/L Anion Gap 10 (5-15) meq/L BUN 25 H (7-18) mg/dL Creatinine 1.43 H (0.60-1.30) mg/dL Estimated GFR 50 L (>89) mL/min Random Glucose 320 H (74-106) mg/dL Calcium 9.1 (8.5-10.1) mg/dL Total Bilirubin 0.2 (0.2-1.0) mg/dL AST 15 (15-37) U/L ALT 19 (12-78) U/L Alkaline Phosphatase 97 (45-117) U/L Total Protein 7.9 (6.4-8.2) g/dL Albumin 3.8 (3.4-5.0) g/dL TSH 1.350 (0.358-3.740) uIU/mL Urine Color (Yellw/Straw) Urine Clarity (Clear) Urine pH (5.0-8.5) Ur Specific [place] (1.002-1.035) Urine Protein (Neg-Trace) mg/dL Urine Glucose (UA) (Negative) mg/dL Urine Ketones (Negative) mg/dL Urine Occult Blood (Negative) Urine Nitrate (Negative) Urine Bilirubin (Negative) Urine Urobilinogen (Less than 2) mg/dL Ur Leukocyte Esterase (Negative) Urine RBC (0-3) /hpf Urine WBC (0-5) /hpf Urine Mucus (Occasional) /lpf Micro UA Comment Urine Culture Comments Urine Opiates Screen Neg (Neg) Ur Barbiturates Screen Neg (Neg) Ur Amphetamines Screen Neg (Neg) U Benzodiazepines Scrn Pos H (Neg) Urine Cocaine Screen Neg (Neg) U Cannabinoids Screen Neg (Neg) Serum Alcohol Less than 3 (0-5) mg/dL 01/07/18 Range/Units 22:45 WBC (4.0-11.0) th/mm3 RBC (4.50-5.90) mil/mm3 Hgb (13.0-17.0) gm/dL Hct (39.0-51.0) % MCV (80.0-100.0) fL MCH (27.0-34.0) pg MCHC (32.0-36.0) % RDW (11.6-17.2) % Plt Count (150-450) th/mm3 MPV (7.0-11.0) fL Neut % (Auto) (16.0-70.0) % Lymph % (Auto) (9.0-44.0) % [place] % (Auto) (0.0-8.0) % Eos % (Auto) (0.0-4.0) % Baso % (Auto) (0.0-2.0) % Neut # (Auto) (1.8-7.7) th/mm3 Lymph # (Auto) (1.0-4.8) th/mm3 [place] # (Auto) (0.0-0.9) th/mm3 Eos # (Auto) (0.0-0.4) th/mm3 Baso # (Auto) (0.0-0.2) th/mm3 WBC Differential Differential Comment Sodium (136-145) meq/L Potassium (3.5-5.1) meq/L Chloride (98-107) meq/L Carbon Dioxide (21.0-32.0) meq/L Anion Gap (5-15) meq/L BUN (7-18) mg/dL Creatinine (0.60-1.30) mg/dL Estimated GFR (>89) mL/min Random Glucose (74-106) mg/dL Calcium (8.5-10.1) mg/dL Total Bilirubin (0.2-1.0) mg/dL AST (15-37) U/L ALT (12-78) U/L Alkaline Phosphatase (45-117) U/L Total Protein (6.4-8.2) g/dL Albumin (3.4-5.0) g/dL TSH (0.358-3.740) uIU/mL Urine Color Colorless (Yellw/Straw) Urine Clarity Clear (Clear) Urine pH 6.0 (5.0-8.5) Ur Specific [place] 1.007 (1.002-1.035) Urine Protein Negative (Neg-Trace) mg/dL Urine Glucose (UA) 500 or greater (Negative) mg/dL Urine Ketones Negative (Negative) mg/dL Urine Occult Blood Small H (Negative) Urine Nitrate Negative (Negative) Urine Bilirubin Negative (Negative) Urine Urobilinogen Less than 2 (Less than 2) mg/dL Ur Leukocyte Esterase Small H (Negative) Urine RBC Less than 1 (0-3) /hpf Urine WBC 8 H (0-5) /hpf Urine Mucus Few H (Occasional) /lpf Micro UA Comment Culture not ind Urine Culture Comments Culture not ind Urine Opiates Screen (Neg) Ur Barbiturates Screen (Neg) Ur Amphetamines Screen (Neg) U Benzodiazepines Scrn (Neg) Urine Cocaine Screen (Neg) U Cannabinoids Screen (Neg) Serum Alcohol (0-5) mg/dL Discharge Plan Discharge Disposition Patient Disposition: 30 Still Patient Discharge Condition Condition: Stable Discharge Details Diagnosis: Encounter for medical clearance for patient hold Physicians Team ED Provider: Alvarado Leslie ED Midlevel Provider: Christofer England Primary Care Provider: Primary Care Anthonyi,Nicky Rxs /Orders / Referrals /Forms Prescriptions: No Action donepezil 10 mg Tablet 10 mg PO DAILY RF: 0 clopidogrel 75 mg Tablet 75 mg PO DAILY RF: 0 levothyroxine 88 mcg Tablet 88 mcg PO DAILY RF: 0 etanercept [Enbrel] 50 mg/mL (0.98 mL) Syringe 1 ml Sub-Q QWEEK RF: 0 valproate sodium 500 mg/5 mL (100 mg/mL) Solution 250 mg IV DAILY RF: 0 glipizide 5 mg Tablet 5 mg PO BID RF: 0 cholecalciferol (vitamin D3) 1,000 unit Capsule 1,000 unit PO BID RF: 0 valproic acid (as sodium salt) 250 mg/5 mL (5 mL) Solution 250 mg PO DAILY RF: 0 Abh Gel /25/1 1 ml Topical Q6H RF: 0 loperamide [Imodium A-D] 2 mg Capsule 2 mg PO Q6H PRN (Reason: Diarrhea) RF: 0 alprazolam [Xanax] 1 mg Tablet 2 mg PO TID RF: 0 quetiapine [Seroquel] 200 mg Tablet 200 mg PO QID RF: 0 magnesium hydroxide 400 mg/5 mL Suspension 30 ml PO DAILY PRN (Reason: Abdominal Discomfort) RF: 0 oxycodone-acetaminophen [Percocet] 10-325 mg Tablet 1 tab PO Q6H PRN (Reason: Pain) RF: 0 hydrocodone-acetaminophen [[place]] 7.5-325 mg Tablet 1 tab PO TID RF: 0 metformin 1,000 mg Tablet 1,000 mg PO BID RF: 0 insulin aspart U-100 [Novolog Flexpen U-100 Insulin] 100 unit/mL Insulin Pen SUB-Q BID RF: 0 acetaminophen [Tylenol] 325 mg Capsule 650 mg PO Q8H PRN (Reason: Fever Or Pain) RF: 0 Discharge Interventions Interventions: Vital Signs Last Done: 01/07/18 23:05 Status ED Status: Medically Cleared
[2018-01-07 22:50] LABS: Baso % (Auto) 0.7 % (0.0-2.0); Eos # (Auto) 0.6 th/mm3 (0.0-0.4); Eos % (Auto) 8.6 % (0.0-4.0); Hematocrit 42.4 % (39.0-51.0); Hemoglobin 14.4 gm/dL (13.0-17.0); Lymph # (Auto) 0.9 th/mm3 (1.0-4.8); Lymph % (Auto) 13.1 % (9.0-44.0); Mean Corpuscular HGB Conc 33.9 % (32.0-36.0); Mean Corpuscular Hemoglobin 27.7 pg (27.0-34.0); Mean Corpuscular Volume 81.6 fL (80.0-100.0); Mean Platelet Volume 8.2 fL (7.0-11.0); Mono # (Auto) 0.6 th/mm3 (0.0-0.9); Neut # (Auto) 4.7 th/mm3 (1.8-7.7); Neut % (Auto) 68.6 % (16.0-70.0); Platelet Count 201 th/mm3 (150-450); Red Cell Distribution Width 15.8 % (11.6-17.2); White Blood Count 6.8 th/mm3 (4.0-11.0)
[2018-01-07 23:11] LABS: Amphetamine Screen,Urine Neg (Neg); Barbiturate Screen,Urine Neg (Neg); Cannabinoid Screen,Urine Neg (Neg); Cocaine Screen,Urine Neg (Neg)
[2018-01-07 23:16] LABS: Opiate Screen,Urine Neg (Neg)
[2018-01-07 23:18] LABS: Albumin 3.8 g/dL (3.4-5.0); Anion Gap 10 meq/L (5-15); Aspartate Aminotransferase 15 U/L (15-37); Blood Urea Nitrogen 25 mg/dL (7-18); Calcium 9.1 mg/dL (8.5-10.1); Carbon Dioxide 24.4 meq/L (21.0-32.0); Chloride 102 meq/L (98-107); Glomerular Filtration Rate 50 mL/min (>89); Glucose,Random 320 mg/dL (74-106); Sodium 136 meq/L (136-145)
[2018-01-07 23:20] LABS: Bilirubin,Urine Negative (Negative); Clarity,Urine Clear (Clear); Color,Urine Colorless (Yellw/Straw); Glucose,Urine (UA) 500 or Greater mg/dL (Negative); Leukocyte Esterase,Urine Small (Negative); Mucus,Urine Few /lpf (Occasional); Nitrite,Urine Negative (Negative); Specific Gravity,Urine 1.007 (1.002-1.035)
[2018-01-07 23:30] LABS: Alanine Aminotransferase 19 U/L (12-78); Alkaline Phosphatase 97 U/L (45-117); Total Protein 7.9 g/dL (6.4-8.2)
[2018-01-08] MEDS ORDERED: Bisacodyl 10 MG Supp RECTAL PRN (09:26)
--- NOTE | 2018-01-08 14:54 | P.HPPSY ---
Provisional Diagnosis Admission Date: January 08, 2018 09:39 Newcomb I.: Dementia with behavioral disturbances Competence Certification of Person's Competence To Provide Express and Informed Consent I have personally examined Al Ochoa, a person being served at [facility] on, January 08, 2018 1444. Express and informed consent means consent voluntarily given in writing, by a competent person, after sufficient explanation and disclosure of the subject matter involved to enable the person to make a knowing and willful decision without any element of force, fraud, deceit, duress, or other form of constraint or coercion. This person is 18 years of age or older, is not now known to be incompetent to consent to treatment with a guardian advocate, and does not have a health care surrogate or proxy currently making medical treatment decisions. I have found this person to be one of the following: [] Competent to provide express and informed consent, as defined above, for voluntary admission to this facility and is competent to provide express and informed consent for treatment. He/she has the consistent capacity to make well reasoned, willful, and knowing decisions concerning his or her medical or mental health treatment. The person fully and consistently understands the purpose of the admission for examination/placement and is fully capable of personally exercising all rights assured [place] [x] Incompetent to provide express and informed consent to voluntary admission, and this is incompetent to provide express and informed consent to treatment. The person must be transferred to involuntary status and a petition for a guardian advocate filed with the Circuit Court. [] Refusing to provide express and informed consent to voluntary admission but is competent to provide express and informed consent for treatment. The person must be discharged or transferred to involuntary status. Form shall be completed within 24 hours of a person's arrival at the receiving facility and filed in the clinical record of each person: 1. Admitted on a voluntary basis 2. Permitted to provide express and informed consent to his/her own treatment 3. Allowed to transfer from involuntary to voluntary status 4. Prior to permitting a person to consent to his or her own treatment after having been previously found incompetent to consent to treatment. History of Present Illness Capacity: Lacks capacity History of Present Illness: The patient is a a 62-year-old man, , domiciled in a [facility], He is a resident at [facility], with a history of dementia due to anoxic brain injury following a myocardial infarction, schizoaffective disorder , poor impulse control, aggressive behavior, well known to the psychiatric service here from multiple prior inpatient visits and consultations for behavioral disturbance in the setting of that dementia, he is on Aricept 10 mg, Namenda 10 mg, Seroquel 200 mg twice daily, Depakote 250 mg twice daily. He presents under [place] act [place] by the [employer]. According to his paperwork he was being combative with staff at the [facility]. The patient denies this, he is under the impression that he is on staff there. He reports that the school transportation supervisor of the place was being rude to other staff members. Symptoms are moderate, likely aggravated by dementia. Chart was reviewed. Psychiatric evaluation the patient is diffusely confused, reports feeling better , denies distress, denies pain, he reports good mood. The patient knows that he is in [place], but he thinks is September 2019. He does not remember the reason of his hospitalization. He denies suicidal and homicidal ideation, denies visual and auditory hallucinations. The patient has not displayed any agitation or aggressive behavior in the ER. He is not acutely paranoid at the moment. - Inpatient Certification I certify that the inpatient services were ordered in accordance with Medicare regulations governing the order. This includes certification that hospital inpatient services are reasonable and necessary and in the case of services not specified as inpatient-only under 42 CFR 419.22(n), that they are appropriately provided as inpatient services in accordance to with the 2-midnight benchmark under 43 CFR 412.3(e) I certify that inpatient psychiatric hospital services are medically necessary. Evaluation and treatment and/or diagnostic testing are expected to improve the patient's condition. The patient needs on a daily basis, active treatment furnished directly by or requiring the supervision of inpatient psychiatric facility personnel. Estimated Total Length of Stay (Days): 7 Plans for Post Hospital Care: intermediate [facility] - History History Provided By: Medical Record - Medical History Medical History: Medical History (Last Updated 01/07/18 @ 22:36 by Kelli Keys) Dementia (Acute) Chronic kidney disease (Acute) Dysphagia (Acute) Hypercalcemia (Acute) Hyperosmolality and hypernatremia (Acute) Hyperlipidemia (Acute) Dysarthria (Acute) Cerebral infarction (Acute) Paranoid schizophrenia (Acute) Hypertension (Acute) Acidosis Alzheimers disease Arthritic-like pain Constipation Depression Diabetes GERD (gastroesophageal reflux disease) Hypothyroidism Insomnia Psoriasis - Tobacco History Second Hand Smoke Exposure: Yes Smoking Status: Never smoker - Alcohol History How Often Do You Have a Drink Containing Alcohol: Never - Substance Use History Substance History: No History of Abuse - Travel History Recent Travel in the [place] Within the Last 8 Weeks: No Recent Travel Out of the Country Within the Last 8 Weeks: No - Immunization History Tetanus Immunization: <5 Years Hx Influenza Vaccine This Season: Yes Medications and Allergies Active Medications: Active Medications Acetaminophen (Tylenol) 650 mg PO Q8H PRN PRN Reason: FEVER OR PAIN 1-10 Hydrocodone Bitart/Acetaminophen ([place] 7.5/325) 1 tab PO TID [facility] Last Admin: 01/08/18 13:42 Dose: 1 tab Al Hydrox/Mg Hydrox/Simethicone (Mag-Al Plus Susp Liq) 30 ml PO Q6H PRN PRN Reason: DYSPEPSIA Al Hydroxide/Mg Hydroxide (Milk Of Magnesia Liq) 30 ml PO Q12H PRN PRN Reason: Mild Constipation Bisacodyl (Dulcolax Supp) 10 mg RECTAL DAILY PRN PRN Reason: SEVERE CONSITIPATION Clopidogrel Bisulfate (Plavix) 75 mg PO DAILY [facility] Donepezil HCl (Aricept) 10 mg PO DAILY [facility] Glipizide (Glucotrol) 5 mg PO BID [facility] Lactulose (Lactulose Liq) 30 ml PO DAILY PRN PRN Reason: SEVERE CONSITIPATION Levothyroxine Sodium (Synthroid) 88 mcg PO DAILY [facility] Non-Formulary Medication (Valproate Sodium [Valproate Sodium]) 250 mg IV.SIG DAILY [facility] Pt Own Med [Enbrel ( (Etanercept) 1 Ml)) 0 each SQ WEEKLY [facility] Quetiapine Fumarate (Seroquel) 200 mg PO QID [facility] Last Admin: 01/08/18 12:39 Dose: 200 mg Senna/Docusate Sodium (Juhi-Colace) 1 tab PO BID [facility] Sennosides (Senokot) 17.2 mg PO Q12H PRN PRN Reason: Moderate Constipation Vitamin D (Vitamin D3) 1,000 unit PO BID [facility] Allergies Allergy/AdvReac Type Severity Reaction Status Date / Time morphine Allergy Severe Shortness Verified 01/07/18 21:55 of Breath tramadol Allergy Severe Hives Verified 01/07/18 21:55 zolpidem Allergy Severe AGITATION/ Verified 01/07/18 21:55 HALLUCINATIONS *MDRO Multi-Drug Resistant Allergy Unknown Weakness Uncoded 01/07/18 21:55 Organism BANDAIDES AdvReac Intermediate SKIN Uncoded 01/07/18 21:55 BLISTERS AREAS OF CONTACT TAPE-ALL EXCEPT PAPER AdvReac Intermediate SKIN Uncoded 01/07/18 21:55 BLISTERS AREAS OF CONTACT Home Medications Medication Instructions Recorded Confirmed Type Abh Gel 1 ml TOPICAL Q6H 01/07/18 01/07/18 History acetaminophen [Tylenol] 650 mg PO Q8H PRN 01/07/18 01/07/18 History alprazolam [Xanax] 2 mg PO TID 01/07/18 01/07/18 History cholecalciferol (vitamin D3) 1,000 unit PO BID 01/07/18 01/07/18 History clopidogrel 75 mg PO DAILY 01/07/18 01/07/18 History donepezil 10 mg PO DAILY 01/07/18 01/07/18 History etanercept [Enbrel] 1 ml SUB-Q QWEEK 01/07/18 01/07/18 History glipizide 5 mg PO BID 01/07/18 01/07/18 History hydrocodone-acetaminophen [[place]] 1 tab PO TID 01/07/18 01/07/18 History insulin aspart U-100 [Novolog See Protocol SUB-Q BID 01/07/18 01/07/18 History Flexpen U-100 Insulin] levothyroxine 88 mcg PO DAILY 01/07/18 01/07/18 History loperamide [Imodium A-D] 2 mg PO Q6H PRN 01/07/18 01/07/18 History magnesium hydroxide 30 ml PO DAILY PRN 01/07/18 01/07/18 History metformin 1,000 mg PO BID 01/07/18 01/07/18 History oxycodone-acetaminophen [Percocet] 1 tab PO Q6H PRN 01/07/18 01/07/18 History quetiapine [Seroquel] 200 mg PO QID 01/07/18 01/07/18 History valproate sodium 250 mg IV DAILY 01/07/18 01/07/18 History valproic acid (as sodium salt) 250 mg PO DAILY 01/07/18 01/07/18 History Results - Labs CBC & Chem 7: 01/07/18 22:05 01/07/18 22:05 Labs: Laboratory Results - last 24 hr 01/07/18 01/07/18 01/07/18 22:05 22:05 22:45 WBC 6.8 RBC 5.20 Hgb 14.4 Hct 42.4 MCV 81.6 MCH 27.7 MCHC 33.9 RDW 15.8 Plt Count 201 MPV 8.2 Neut % (Auto) 68.6 Lymph % (Auto) 13.1 [place] % (Auto) 9.0 H Eos % (Auto) 8.6 H Baso % (Auto) 0.7 Neut # (Auto) 4.7 Lymph # (Auto) 0.9 L [place] # (Auto) 0.6 Eos # (Auto) 0.6 H Baso # (Auto) 0.0 WBC Differential . Differential Comment Auto diff final Sodium 136 Potassium 4.0 Chloride 102 Carbon Dioxide 24.4 Anion Gap 10 BUN 25 H Creatinine 1.43 H Estimated GFR 50 L Random Glucose 320 H Calcium 9.1 Total Bilirubin 0.2 AST 15 ALT 19 Alkaline Phosphatase 97 Total Protein 7.9 Albumin 3.8 TSH 1.350 Urine Color Urine Clarity Urine pH Ur Specific [place] Urine Protein Urine Glucose (UA) Urine Ketones Urine Occult Blood Urine Nitrate Urine Bilirubin Urine Urobilinogen Ur Leukocyte Esterase Urine RBC Urine WBC Urine Mucus Micro UA Comment Urine Culture Comments Urine Opiates Screen Neg Ur Barbiturates Screen Neg Ur Amphetamines Screen Neg U Benzodiazepines Scrn Pos H Urine Cocaine Screen Neg U Cannabinoids Screen Neg Serum Alcohol Less than 3 01/07/18 22:45 WBC RBC Hgb Hct MCV MCH MCHC RDW Plt Count MPV Neut % (Auto) Lymph % (Auto) [place] % (Auto) Eos % (Auto) Baso % (Auto) Neut # (Auto) Lymph # (Auto) [place] # (Auto) Eos # (Auto) Baso # (Auto) WBC Differential Differential Comment Sodium Potassium Chloride Carbon Dioxide Anion Gap BUN Creatinine Estimated GFR Random Glucose Calcium Total Bilirubin AST ALT Alkaline Phosphatase Total Protein Albumin TSH Urine Color Colorless Urine Clarity Clear Urine pH 6.0 Ur Specific [place] 1.007 Urine Protein Negative Urine Glucose (UA) 500 or greater Urine Ketones Negative Urine Occult Blood Small H Urine Nitrate Negative Urine Bilirubin Negative Urine Urobilinogen Less than 2 Ur Leukocyte Esterase Small H Urine RBC Less than 1 Urine WBC 8 H Urine Mucus Few H Micro UA Comment Culture not ind Urine Culture Comments Culture not ind Urine Opiates Screen Ur Barbiturates Screen Ur Amphetamines Screen U Benzodiazepines Scrn Urine Cocaine Screen U Cannabinoids Screen Serum Alcohol Exam Vital signs: Vital Signs 01/07/18 21:47 01/07/18 23:05 01/08/18 03:00 Temperature 98.4 F 98 F Pulse Rate 111 H 98 H 88 Respiratory Rate 18 20 20 Blood Pressure 115/70 136/72 136/78 Pulse Oximetry 97 98 98 Intake & Output 01/07/18 01/08/18 01/08/18 18:59 06:59 18:59 Weight 77.111 kg Mental Status Examination Appearance: Disheveled Consciousness: Alert Orientation: Person, Place Motor Activity: Normal gait Speech: Unremarkable Language: Adequate Fund of Knowledge: Inadequate Memory: Impaired Mood: Appropriate Affect: Appropriate Thought Process & Associations: Loose associations Thought Content: Bizarre thinking Suicidal Ideation: No Suicidal Plan: No Suicidal Intention: No Homicidal Ideation: No Homicidal Plan: No Homicidal Intention: No Insight: Poor Judgment: Poor Assessment and Plan - Plan Plan: Estimated LOS: [] days Patient has been allegedly agitated and aggressive in [facility]. No collateral available at the moment. The patient has psychiatric history of dementia with behavioral disturbance, aggressive behavior, poor impulse control , schizoaffective disorder, multiple psychiatric hospitalizations. The patient will be admitted in psychiatry for stabilization and safety. I will restart Seroquel 200 mg twice daily, Depakote 250 mg twice daily, Namenda 10, Aricept 10. Patient will be transferred to med psych unit. Justification for Continued Inpatient Stay: Patient will be admitted in psychiatry.
[2018-01-08] MEDS ORDERED: Dextrose 50% in Water 50 ML Vial IV.PUSH PRN (22:43)
[2018-01-08] MEDS: Senna/Docusate Sodium 8.6/50 MG Tablet PO SCH (23:16)
[2018-01-08] MEDS: Acetaminophen 325 MG Tablet PO PRN (23:16)
[2018-01-08] MEDS: Insulin NovoLOG Aspart Correctional Sugar Inj SQ SCH (23:28)
[2018-01-08] MEDS: glipiZIDE 5 MG Tablet PO SCH (23:29)
[2018-01-09] MEDS: Levothyroxine 88 MCG Tablet PO SCH (06:12)
[2018-01-09 08:19] LABS: Calcium 9.4 mg/dL (8.5-10.1); Carbon Dioxide 23.8 meq/L (21.0-32.0); Potassium 3.7 meq/L (3.5-5.1)
[2018-01-09 08:30] LABS: Chol/HDL Ratio 4.46 Ratio; HDL Cholesterol 37.2 mg/dL (40.0-60.0)
[2018-01-09] MEDS: Senna/Docusate Sodium 8.6/50 MG Tablet PO SCH ×2 (08:56→21:48)
[2018-01-09] MEDS: Insulin NovoLOG Aspart Correctional Sugar Inj SQ SCH ×4 (08:56→21:49)
[2018-01-09] MEDS: glipiZIDE 5 MG Tablet PO SCH ×2 (08:56→21:48)
[2018-01-09] MEDS ORDERED: ETANERCEPT SQ SCH (09:00)
[2018-01-09] MEDS ORDERED: VALPROATE SODIUM 250 MG IV.SIG SCH (09:00)
--- NOTE | 2018-01-09 11:10 | P.CON ---
History of Present Illness Service: [facility] Consult date: 01/09/18 Requesting Physician: Phil Walters Reason for Consult: Assist with medical management Primary Care Provider: No Primary Care Physician Family Provider: No Primary Care Physician Chief Complaint: Aggressive behavior History of Present Illness: Patient is a 62-year-old male with past medical history of DM 2, hypothyroidism , dementia, schizoaffective disorder, anoxic brain injury secondary to [place] who initially came into the hospital from cocaine under [facility] act. Patient has been combative with staff in his facility. He is admitted to medical psychiatry unit for further evaluation. Hospitalist consulted for assistance with medical management. Patient seen and examined today. Reports he is doing okay. Patient is calm follows commands. States that he is at [facility]. Does not remember the date, his medical conditions. He knows to sitting in the state. Denies pain and discomfort. Denies SOB/ dyspnea. Denies chest pain, palpitations, headaches, dizziness. Denies fevers, chills, n/v/d. Denies hematuria, dysuria. Review of Systems All other systems reviewed negative except as stated in HPI PMFSH - History History Provided By: Medical Record - Medical / Surgical Hx Neg / Unobtainable Surgical History: Unable to Obtain (Patient unable to remember past surgical history) - Medical History Medical History: Medical History (Last Updated 01/07/18 @ 22:36 by Kelli Keys) Dementia (Acute) Chronic kidney disease (Acute) Dysphagia (Acute) Hypercalcemia (Acute) Hyperosmolality and hypernatremia (Acute) Hyperlipidemia (Acute) Dysarthria (Acute) Cerebral infarction (Acute) Paranoid schizophrenia (Acute) Hypertension (Acute) Acidosis Alzheimers disease Arthritic-like pain Constipation Depression Diabetes GERD (gastroesophageal reflux disease) Hypothyroidism Insomnia Psoriasis - Family History Family History: Family History (Last Updated 01/09/18 @ 14:40 by LEELEE Ha) Other Parents - Tobacco History Second Hand Smoke Exposure: Yes Smoking Status: Never smoker - Alcohol History How Often Do You Have a Drink Containing Alcohol: Never - Substance Use History Substance History: No History of Abuse - Travel History Recent Travel in the [place] Within the Last 8 Weeks: No Recent Travel Out of the Country Within the Last 8 Weeks: No - Immunization History Tetanus Immunization: <5 Years Hx Influenza Vaccine This Season: Yes Medications and Allergies Active Medications: Active Medications Acetaminophen (Tylenol) 650 mg PO Q8H PRN PRN Reason: FEVER OR PAIN 1-10 Last Admin: 01/08/18 23:16 Dose: 650 mg Hydrocodone Bitart/Acetaminophen ([place] 7.5/325) 1 tab PO TID [facility] Last Admin: 01/09/18 08:56 Dose: 1 tab Al Hydrox/Mg Hydrox/Simethicone (Mag-Al Plus Susp Liq) 30 ml PO Q6H PRN PRN Reason: DYSPEPSIA Al Hydroxide/Mg Hydroxide (Milk Of Magnesia Liq) 30 ml PO Q12H PRN PRN Reason: Mild Constipation Bisacodyl (Dulcolax Supp) 10 mg RECTAL DAILY PRN PRN Reason: SEVERE CONSITIPATION Clopidogrel Bisulfate (Plavix) 75 mg PO DAILY [facility] Last Admin: 01/09/18 08:56 Dose: 75 mg Dextrose (D50w Vial) 50 ml IV.PUSH UNSCH PRN PRN Reason: PER HYPOGLYCEMIA PROTOCOL Donepezil HCl (Aricept) 10 mg PO DAILY [facility] Last Admin: 01/09/18 08:56 Dose: 10 mg Glipizide (Glucotrol) 5 mg PO BID [facility] Last Admin: 01/09/18 08:56 Dose: 5 mg Glucagon (Glucagon Inj) 1 mg OTHER UNSCH PRN PRN Reason: for Hypoglycemia Protocol Insulin Aspart (Novolog Insulin Correctional Sugar Inj) 0 unit SQ ACHS [facility]; Protocol Last Admin: 01/09/18 08:56 Dose: 1 unit Lactulose (Lactulose Liq) 30 ml PO DAILY PRN PRN Reason: SEVERE CONSITIPATION Levothyroxine Sodium (Synthroid) 88 mcg PO DAILY@0600 [facility] Last Admin: 01/09/18 06:12 Dose: 88 mcg Pt Own Med [Enbrel ( (Etanercept) 1 Ml)) 0 each SQ WEEKLY [facility] Quetiapine Fumarate (Seroquel) 200 mg PO QID [facility] Last Admin: 01/09/18 08:56 Dose: 200 mg Senna/Docusate Sodium (Juhi-Colace) 1 tab PO BID [facility] Last Admin: 01/09/18 08:56 Dose: 1 tab Sennosides (Senokot) 17.2 mg PO Q12H PRN PRN Reason: Moderate Constipation Valproate Sodium (Depakene Liq) 250 mg PO DAILY [facility] Last Admin: 01/09/18 08:56 Dose: 250 mg Valproate Sodium (Depakene Liq) 1,500 mg PO [facility] Last Admin: 01/08/18 23:17 Dose: 1,500 mg Vitamin D (Vitamin D3) 1,000 unit PO BID [facility] Last Admin: 01/09/18 08:56 Dose: 1,000 unit Allergies Allergy/AdvReac Type Severity Reaction Status Date / Time morphine Allergy Severe Shortness Verified 01/07/18 21:55 of Breath tramadol Allergy Severe Hives Verified 01/07/18 21:55 [email or web address] Allergy Severe AGITATION/ Verified 01/07/18 21:55 HALLUCINATIONS *MDRO Multi-Drug Resistant Allergy Unknown Weakness Uncoded 01/07/18 21:55 Organism BANDAIDES AdvReac Intermediate SKIN Uncoded 01/07/18 21:55 BLISTERS AREAS OF CONTACT TAPE-ALL EXCEPT PAPER AdvReac Intermediate SKIN Uncoded 01/07/18 21:55 BLISTERS AREAS OF CONTACT Home Medications Medication Instructions Recorded Confirmed Type Abh Gel 1 ml TOPICAL Q6H 01/07/18 01/07/18 History acetaminophen [Tylenol] 650 mg PO Q8H PRN 01/07/18 01/07/18 History alprazolam [Xanax] 2 mg PO TID 01/07/18 01/07/18 History cholecalciferol (vitamin D3) 1,000 unit PO BID 01/07/18 01/07/18 History clopidogrel 75 mg PO DAILY 01/07/18 01/07/18 History donepezil 10 mg PO DAILY 01/07/18 01/07/18 History etanercept [Enbrel] 1 ml SUB-Q QWEEK 01/07/18 01/07/18 History glipizide 5 mg PO BID 01/07/18 01/07/18 History hydrocodone-acetaminophen [[place]] 1 tab PO TID 01/07/18 01/07/18 History insulin aspart U-100 [Novolog See Protocol SUB-Q BID 01/07/18 01/07/18 History Flexpen U-100 Insulin] levothyroxine 88 mcg PO DAILY 01/07/18 01/07/18 History loperamide [Imodium A-D] 2 mg PO Q6H PRN 01/07/18 01/07/18 History magnesium hydroxide 30 ml PO DAILY PRN 01/07/18 01/07/18 History metformin 1,000 mg PO BID 01/07/18 01/07/18 History oxycodone-acetaminophen [Percocet] 1 tab PO Q6H PRN 01/07/18 01/07/18 History quetiapine [Seroquel] 200 mg PO QID 01/07/18 01/07/18 History valproate sodium 250 mg IV DAILY 01/07/18 01/07/18 History valproic acid (as sodium salt) 250 mg PO DAILY 01/07/18 01/07/18 History Physical Exam Vital signs: Vital Signs 01/08/18 17:14 01/09/18 05:44 Temperature 100 F H 97.9 F Pulse Rate 103 H 67 Respiratory Rate 15 Blood Pressure 125/65 92/54 L Pulse Oximetry 96 98 Intake & Output 01/08/18 01/09/18 01/09/18 18:59 06:59 18:59 Intake Total 720 / 720 240 / 240 Output Total Balance 719 / 719 240 / 240 Weight 64.9 kg Intake: Oral 720 / 720 240 / 240 Output: Urine Other: # Voids 1 Narrative: GENERAL: This is a well-nourished, well-developed patient, in no apparent distress. SKIN: Warm and dry. HEENT: Normocephalic. Pupils equal round and reactive. Nose without bleeding. Airway patent. NECK: Trachea midline. Supple. CARDIOVASCULAR: Regular rate and rhythm without murmurs, gallops, or rubs. RESPIRATORY: Clear to auscultation. Breath sounds equal bilaterally. No wheezes , rales, or rhonchi. GASTROINTESTINAL: Abdomen soft, non-tender, nondistended. Bowel Sounds normoactive x4. MUSCULOSKELETAL: Extremities without clubbing, cyanosis. Bilateral lower extremity trace edema. NEUROLOGICAL: Awake and alert. Oriented to place, person. Moves all extremities. Normal speech. Assessment and Plan - Plan Patient is a 62-year-old male with past medical history of DM 2, hypothyroidism , dementia, schizoaffective disorder, anoxic brain injury secondary to [place] who initially came into the hospital from cocaine under [facility] act. Patient has been combative with staff in his facility. He is admitted to medical psychiatry unit for further evaluation. Hospitalist consulted for assistance with medical management. Dementia, schizoaffective disorder -Managed by psychiatry team -On Aricept, Namenda DM 2 -Hold off metformin for now secondary to elevated creatinine -Continue glipizide, insulin sliding scale -Check hemoglobin A1c, monitor Accu-Cheks. -Resume metformin if creatinine improves History of CVA -Continue home medications including Plavix Hypothyroidism -Continue levothyroxine Acute kidney injury on chronic kidney disease -Possible ongoing chronic kidney disease secondary to diabetic nephropathy -Baseline creatinine 1.1, admitted with 1.43 -Check repeat creatinine. Avoid nephrotoxins. Encourage p.o. fluid intake. DVT Prop ambulation, if minimal ambulation can be started on Heparin Code Status: Full Code Discussed Condition With: Patient, nursing Discharge Planning: DC disposition by primary team
[2018-01-09 11:42] LABS: Hemoglobin A1c 8.5 % (4.3-6.0)
--- NOTE | 2018-01-09 14:56 | P.CONPSY ---
Provisional Diagnosis Admission Date: January 08, 2018 09:39 [place]in[place] I.: Dementia with behavioral disturbances History of Present Illness Service: Psychiatry Consult date: 01/09/18 Requesting Physician: Phil Walters Reason for Consult: Second opinion Primary Care Provider: No Primary Care Physician Family Provider: No Primary Care Physician Chief Complaint: Aggressive behavior History of Present Illness: Patient is a 62-year-old man, who carries a diagnosis schizoaffective disorder, dementia, domiciled an assisted living facility, who came into the ED due to aggressive behavior towards staff at his residential, noted to be confused, and admitted to the inpatient psychiatry for further evaluation and management. Discussion nursing staff reported the patient was noted to be impulsive and obsessive with his with multiple phone calls and appearing unsteady upon ambulation. Patient was found lying hospital bed noted B, cooperative. Patient states that he is feeling "sore all the time" referring to body aches which is not new. Patient reports sleeping well, adequate appetite concentration and energy stating that his mood is "a little bit down" stating that he is unable to do the activities and functions as he wants that prior. Patient is alert and oriented only to person and to place. Patient denies any perceptional services, denies any delusions. Patient unable to recall events prior to his hospitalization. Patient denies any physical complaints at this time was reminded of the importance of letting staff know what he is wanting to ambulate to avoid falls which he agreed. Review of Systems All other systems reviewed negative except as stated in HPI PMFSH - History History Provided By: Patient, Medical Record - Medical History Medical History: Medical History (Last Updated 01/07/18 @ 22:36 by Kelli Keys) Dementia (Acute) Chronic kidney disease (Acute) Dysphagia (Acute) Hypercalcemia (Acute) Hyperosmolality and hypernatremia (Acute) Hyperlipidemia (Acute) Dysarthria (Acute) Cerebral infarction (Acute) Paranoid schizophrenia (Acute) Hypertension (Acute) Acidosis Alzheimers disease Arthritic-like pain Constipation Depression Diabetes GERD (gastroesophageal reflux disease) Hypothyroidism Insomnia Psoriasis - Family History Family History: Family History (Last Updated 01/09/18 @ 14:40 by LEELEE Ha) Other Parents - Tobacco History Second Hand Smoke Exposure: Yes Smoking Status: Never smoker - Alcohol History How Often Do You Have a Drink Containing Alcohol: Never - Substance Use History Substance History: No History of Abuse - Travel History Recent Travel in the [place] Within the Last 8 Weeks: No Recent Travel Out of the Country Within the Last 8 Weeks: No - Immunization History Tetanus Immunization: <5 Years Hx Influenza Vaccine This Season: Yes Medications and Allergies Active Medications: Active Medications Acetaminophen (Tylenol) 650 mg PO Q8H PRN PRN Reason: FEVER OR PAIN 1-10 Last Admin: 01/08/18 23:16 Dose: 650 mg Hydrocodone Bitart/Acetaminophen ([place] 7.5/325) 1 tab PO TID [facility] Last Admin: 01/09/18 13:19 Dose: 1 tab Al Hydrox/Mg Hydrox/Simethicone (Mag-Al Plus Susp Liq) 30 ml PO Q6H PRN PRN Reason: DYSPEPSIA Al Hydroxide/Mg Hydroxide (Milk Of Magnesia Liq) 30 ml PO Q12H PRN PRN Reason: Mild Constipation Bisacodyl (Dulcolax Supp) 10 mg RECTAL DAILY PRN PRN Reason: SEVERE CONSITIPATION Clopidogrel Bisulfate (Plavix) 75 mg PO DAILY [facility] Last Admin: 01/09/18 08:56 Dose: 75 mg Dextrose (D50w Vial) 50 ml IV.PUSH UNSCH PRN PRN Reason: PER HYPOGLYCEMIA PROTOCOL Donepezil HCl (Aricept) 10 mg PO DAILY [facility] Last Admin: 01/09/18 08:56 Dose: 10 mg Glipizide (Glucotrol) 5 mg PO BID [facility] Last Admin: 01/09/18 08:56 Dose: 5 mg Glucagon (Glucagon Inj) 1 mg OTHER UNSCH PRN PRN Reason: for Hypoglycemia Protocol Insulin Aspart (Novolog Insulin Correctional Sugar Inj) 0 unit SQ ACHS [facility]; Protocol Last Admin: 01/09/18 12:27 Dose: 1 unit Lactulose (Lactulose Liq) 30 ml PO DAILY PRN PRN Reason: SEVERE CONSITIPATION Levothyroxine Sodium (Synthroid) 88 mcg PO DAILY@0600 [facility] Last Admin: 01/09/18 06:12 Dose: 88 mcg Pt Own Med [Enbrel ( (Etanercept) 1 Ml)) 0 each SQ WEEKLY [facility] Quetiapine Fumarate (Seroquel) 200 mg PO QID [facility] Last Admin: 01/09/18 08:56 Dose: 200 mg Senna/Docusate Sodium (Juhi-Colace) 1 tab PO BID [facility] Last Admin: 01/09/18 08:56 Dose: 1 tab Sennosides (Senokot) 17.2 mg PO Q12H PRN PRN Reason: Moderate Constipation Valproate Sodium (Depakene Liq) 250 mg PO DAILY [facility] Last Admin: 01/09/18 08:56 Dose: 250 mg Valproate Sodium (Depakene Liq) 1,[address] [facility] Last Admin: 01/08/18 23:17 Dose: 1,500 mg Vitamin D (Vitamin D3) 1,000 unit PO BID [facility] Last Admin: 01/09/18 08:56 Dose: 1,000 unit Allergies Allergy/AdvReac Type Severity Reaction Status Date / Time morphine Allergy Severe Shortness Verified 01/07/18 21:55 of Breath tramadol Allergy Severe Hives Verified 01/07/18 21:55 [email or web address] Allergy Severe AGITATION/ Verified 01/07/18 21:55 HALLUCINATIONS *MDRO Multi-Drug Resistant Allergy Unknown Weakness Uncoded 01/07/18 21:55 Organism BANDAIDES AdvReac Intermediate SKIN Uncoded 01/07/18 21:55 BLISTERS AREAS OF CONTACT TAPE-ALL EXCEPT PAPER AdvReac Intermediate SKIN Uncoded 01/07/18 21:55 BLISTERS AREAS OF CONTACT Home Medications Medication Instructions Recorded Confirmed Type Abh Gel 1 ml TOPICAL Q6H 01/07/18 01/07/18 History acetaminophen [Tylenol] 650 mg PO Q8H PRN 01/07/18 01/07/18 History alprazolam [Xanax] 2 mg PO TID 01/07/18 01/07/18 History cholecalciferol (vitamin D3) 1,000 unit PO BID 01/07/18 01/07/18 History clopidogrel 75 mg PO DAILY 01/07/18 01/07/18 History donepezil 10 mg PO DAILY 01/07/18 01/07/18 History etanercept [Enbrel] 1 ml SUB-Q QWEEK 01/07/18 01/07/18 History glipizide 5 mg PO BID 01/07/18 01/07/18 History hydrocodone-acetaminophen [[place]] 1 tab PO TID 01/07/18 01/07/18 History insulin aspart U-100 [Novolog See Protocol SUB-Q BID 01/07/18 01/07/18 History Flexpen U-100 Insulin] levothyroxine 88 mcg PO DAILY 01/07/18 01/07/18 History loperamide [Imodium A-D] 2 mg PO Q6H PRN 01/07/18 01/07/18 History magnesium hydroxide 30 ml PO DAILY PRN 01/07/18 01/07/18 History metformin 1,000 mg PO BID 01/07/18 01/07/18 History oxycodone-acetaminophen [Percocet] 1 tab PO Q6H PRN 01/07/18 01/07/18 History quetiapine [Seroquel] 200 mg PO QID 01/07/18 01/07/18 History valproate sodium 250 mg IV DAILY 01/07/18 01/07/18 History valproic acid (as sodium salt) 250 mg PO DAILY 01/07/18 01/07/18 History Exam Vital signs: Vital Signs 01/08/18 17:14 01/09/18 05:44 Temperature 100 F H 97.9 F Pulse Rate 103 H 67 Respiratory Rate 15 Blood Pressure 125/65 92/54 L Pulse Oximetry 96 98 Intake & Output 01/08/18 01/09/18 01/09/18 18:59 06:59 18:59 Intake Total 720 / 720 480 / 480 Output Total Balance 719 / 719 480 / 480 Weight 64.9 kg Intake: Oral 720 / 720 480 / 480 Output: Urine Other: # Voids 1 Narrative: Patient had noted be acute distress, no signs of gross motor abnormalities although noted to have unsteady gait, no signs of tremor or EPS. No signs of psychomotor agitation or retardation. - Constitutional no acute distress, disheveled (Slightly), cooperative Mental Status Examination Appearance: Disheveled Consciousness: Alert Orientation: Person, Place Motor Activity: Normal gait Speech: Unremarkable Language: Adequate Fund of Knowledge: Inadequate Memory: Impaired Mood: Appropriate Affect: Appropriate Thought Process & Associations: Loose associations Thought Content: Bizarre thinking Hallucination Type: None Delusion Type: None Suicidal Ideation: No Suicidal Plan: No Suicidal Intention: No Homicidal Ideation: No Homicidal Plan: No Homicidal Intention: No Insight: Poor Judgment: Poor Assessment and Plan - Assessment (1) Dementia Code(s): F03.90 - Unspecified dementia without behavioral disturbance Status: Acute (2) Schizoaffective disorder Code(s): F25.9 - Schizoaffective disorder, unspecified Status: Acute - Plan Plan: I have seen and examined this patient, reviewed the documentation, discussed personally with Dr. Walters, and I agree and concur with his assessment and plan. Consult appreciated. Patient continues with baseline confusion secondary to dementia, no noted aggressive behavior since admission although at times has been noted to be intrusive and irritable. We will continue current treatment. VPA level was within therapeutic range (67). We will order repeat valproic acid level on 01/12/18. We will continue to monitor mood and behavior. Discharge planning in progress. Justification for Continued Inpatient Stay: At risk for further decompensation if at lower level of care. (1) Dementia Qualifiers: Dementia type: unspecified type Dementia behavioral disturbance: with behavioral disturbance Qualified Code(s): F03.91 - Unspecified dementia with behavioral disturbance
[2018-01-10] MEDS: Levothyroxine 88 MCG Tablet PO SCH (06:34)
[2018-01-10] MEDS: glipiZIDE 5 MG Tablet PO SCH ×2 (09:06→21:39)
[2018-01-10] MEDS: Insulin NovoLOG Aspart Correctional Sugar Inj SQ SCH ×4 (09:07→21:39)
[2018-01-10] MEDS: Senna/Docusate Sodium 8.6/50 MG Tablet PO SCH ×2 (09:07→21:39)
--- NOTE | 2018-01-10 14:12 | P.PN ---
Subjective Interval history: Follow up visit DM 2, hypothyroidism, dementia, schizoaffective disorder, anoxic brain injury. Patient seen and examined today. [place]. States he was walking around on and off but now resting in bed. Denies pain and discomfort. Denies SOB/ dyspnea. Denies chest pain, palpitations, headaches, dizziness. Denies fevers, chills, n/v/d. Denies hematuria, dysuria. Physical Exam Vital signs: Vital Signs 01/10/18 06:00 01/10/18 09:40 Temperature 97.5 F L Pulse Rate 79 Respiratory Rate 16 3 L Blood Pressure 121/70 Pulse Oximetry 95 Intake & Output 01/09/18 01/10/18 01/10/18 18:59 06:59 18:59 Intake Total 480 / 480 480 / 480 720 / 720 Balance 480 / 480 480 / 480 720 / 720 Intake: Oral 480 / 480 480 / 480 720 / 720 Other: # Voids 1 Narrative: GENERAL: This is a well-nourished, well-developed patient, in no apparent distress. SKIN: Warm and dry. HEENT: Normocephalic. Pupils equal round and reactive. Nose without bleeding. Airway patent. NECK: Trachea midline. Supple. CARDIOVASCULAR: Regular rate and rhythm without murmurs, gallops, or rubs. RESPIRATORY: Clear to auscultation. Breath sounds equal bilaterally. No wheezes , rales, or rhonchi. GASTROINTESTINAL: Abdomen soft, non-tender, nondistended. Bowel Sounds normoactive x4. MUSCULOSKELETAL: Extremities without clubbing, cyanosis. Bilateral lower extremity trace edema. NEUROLOGICAL: Awake and alert. Oriented to place, person. Moves all extremities. Normal speech. Results - Labs CBC & Chem 7: 01/07/18 22:05 01/09/18 07:24 Laboratory Results - last 24 hr 01/09/18 01/09/18 01/10/18 16:40 19:56 07:06 POC Glucose 231 H 224 H 137 H 01/10/18 11:20 POC Glucose 172 H Assessment and Plan - Plan Patient is a 62-year-old male with past medical history of DM 2, hypothyroidism , dementia, schizoaffective disorder, anoxic brain injury secondary to [place] who initially came into the hospital from cocaine under [facility] act. Patient has been combative with staff in his facility. He is admitted to medical psychiatry unit for further evaluation. Hospitalist consulted for assistance with medical management. Dementia, schizoaffective disorder -Managed by psychiatry team -On Aricept, Namenda DM 2 -Continue glipizide, insulin sliding scale -Check hemoglobin A1c, monitor Accu-Cheks. -Resume metformin History of CVA -Continue home medications including Plavix Hypothyroidism -Continue levothyroxine Acute kidney injury on chronic kidney disease -Possible ongoing chronic kidney disease secondary to diabetic nephropathy -Baseline creatinine 1.1, admitted with 1.43 -Avoid nephrotoxins. Encourage p.o. fluid intake. -Improved DVT Prop ambulation, if minimal ambulation can be started on Heparin Code Status: Full Code Discussed Condition With: Patient, nursing Discharge Planning: DC disposition by primary team
--- NOTE | 2018-01-10 15:10 | P.PNPSY ---
Subjective Remarks: Patient seen for follow, chart reviewed. Discussion nursing staff reported the patient continues to be forgetful continues to want to contact his constantly. Patient compliant with medications with no aggressive behavior. Patient was found lying hospital bed noted to be calm, cooperative. Patient states that he is feeling "not good as he had some difficulty sleeping last evening. He said he is feeling anxious to get home to his but his mood in general has been good. Patient continues to feel upset that he cannot be with his at this time. Patient denies any physical complaints, denies any perceptional services or delusions at this time. Patient continues with baseline confusion. Review of Systems All other systems reviewed negative except as stated in HPI Mental Status Examination Appearance: Appropriate Consciousness: Alert Orientation: Person, Place Motor Activity: Normal gait Speech: Unremarkable Language: Adequate Fund of Knowledge: Inadequate Attention and Concentration: Adequate Memory: Impaired Mood: Appropriate Affect: Appropriate Thought Process & Associations: Loose associations Thought Content: Bizarre thinking Hallucination Type: None Delusion Type: None Suicidal Ideation: No Suicidal Plan: No Suicidal Intention: No Homicidal Ideation: No Homicidal Plan: No Homicidal Intention: No Insight: Poor Judgment: Poor Assessment and Plan - Assessment (1) Dementia Code(s): F03.90 - Unspecified dementia without behavioral disturbance Status: Acute (2) Schizoaffective disorder Code(s): F25.9 - Schizoaffective disorder, unspecified Status: Acute - Plan Plan: Patient this time continues with no aggressive behavior, has become cooperative with staff, no periods of agitation. Continue current treatment. Continue to monitor mood and behavior. Discharge planning a progress. Justification for Continued Inpatient Stay: At risk of further decompensation at lower level care. (1) Dementia Qualifiers: Dementia type: unspecified type Dementia behavioral disturbance: with behavioral disturbance Qualified Code(s): F03.91 - Unspecified dementia with behavioral disturbance
[2018-01-11] MEDS: Levothyroxine 88 MCG Tablet PO SCH (06:35)
[2018-01-11] MEDS: Insulin NovoLOG Aspart Correctional Sugar Inj SQ SCH ×4 (08:00→21:01)
[2018-01-11] MEDS: Senna/Docusate Sodium 8.6/50 MG Tablet PO SCH ×2 (09:19→21:01)
[2018-01-11] MEDS: glipiZIDE 5 MG Tablet PO SCH ×2 (09:21→21:01)
--- NOTE | 2018-01-11 11:17 | P.PN ---
Subjective Interval history: Follow up visit DM 2, hypothyroidism, dementia, schizoaffective disorder, anoxic brain injury. Patient seen and examined today. States he is weak, short distance walk only. Having problems with BLE weakness. Denies SOB/ dyspnea. Denies chest pain, palpitations, headaches, dizziness. Denies fevers, chills, n/v/d. Denies hematuria, dysuria. Physical Exam Vital signs: Vital Signs 01/10/18 18:22 01/11/18 05:48 Temperature 98.0 F 98.9 F Pulse Rate 88 82 Respiratory Rate 17 16 Blood Pressure 116/82 111/78 Pulse Oximetry 96 94 L Intake & Output 01/10/18 01/11/18 01/11/18 18:59 06:59 18:59 Intake Total 1680 / 1680 360 / 360 Balance 1680 / 1680 360 / 360 Intake: Oral 1680 / 1680 360 / 360 Other: # Voids 1 Narrative: GENERAL: This is a well-nourished, well-developed patient, in no apparent distress. SKIN: Warm and dry. HEENT: Normocephalic. Pupils equal round and reactive. Nose without bleeding. Airway patent. NECK: Trachea midline. Supple. CARDIOVASCULAR: Regular rate and rhythm without murmurs, gallops, or rubs. RESPIRATORY: Clear to auscultation. Breath sounds equal bilaterally. No wheezes , rales, or rhonchi. GASTROINTESTINAL: Abdomen soft, non-tender, nondistended. Bowel Sounds normoactive x4. MUSCULOSKELETAL: Extremities without clubbing, cyanosis. Bilateral lower extremity trace edema. NEUROLOGICAL: Awake and alert. Oriented to place, person. Moves all extremities. Normal speech. Results - Labs CBC & Chem 7: 01/07/18 22:05 01/09/18 07:24 Laboratory Results - last 24 hr 01/10/18 01/10/18 01/10/18 11:20 16:27 20:32 POC Glucose 172 H 199 H 210 H 01/11/18 07:52 POC Glucose 125 H Assessment and Plan - Plan Patient is a 62-year-old male with past medical history of DM 2, hypothyroidism , dementia, schizoaffective disorder, anoxic brain injury secondary to [place] who initially came into the hospital from cocaine under [facility] act. Patient has been combative with staff in his facility. He is admitted to medical psychiatry unit for further evaluation. Hospitalist consulted for assistance with medical management. Dementia, schizoaffective disorder -Managed by psychiatry team -On Aricept, Namenda DM 2 -Continue glipizide, insulin sliding scale -Check hemoglobin A1c, monitor Accu-Cheks. -Resume metformin Debility, BLE weakness History of CVA -Continue home medications including Plavix -PT eval and treat -Ambulated with supervision, walker use, Ambulated approx 20 feet and unsteady Hypothyroidism -Continue levothyroxine Acute kidney injury on chronic kidney disease -Possible ongoing chronic kidney disease secondary to diabetic nephropathy -Baseline creatinine 1.1, admitted with 1.43 -Avoid nephrotoxins. Encourage p.o. fluid intake. -Improved DVT Prop ambulation, if minimal ambulation can be started on Heparin Code Status: Full code Discussed Condition With: Patient, nursing Discharge Planning: DC disposition by primary team
[2018-01-11] MEDS: Aluminum/Magnesium/Simethacone Susp 30 ML UDC PO PRN (11:52)
--- NOTE | 2018-01-11 14:41 | P.PNPSY ---
Subjective Remarks: Pt seen and discussed with staff. Chart reviewed. He was admitted due to aggressive behavior. He has been cooperative with medications and care. He is oriented to self only. No aggression or agitation today. Mental Status Examination Appearance: Appropriate Consciousness: Alert Orientation: Person, Place Motor Activity: Normal gait Speech: Unremarkable Language: Adequate Fund of Knowledge: Inadequate Attention and Concentration: Adequate Memory: Impaired Mood: Appropriate Affect: Appropriate Thought Process & Associations: Loose associations Thought Content: Bizarre thinking Hallucination Type: None Delusion Type: None Suicidal Ideation: No Suicidal Plan: No Suicidal Intention: No Homicidal Ideation: No Homicidal Plan: No Homicidal Intention: No Insight: Poor Judgment: Poor Assessment and Plan - Assessment (1) Dementia Code(s): F03.90 - Unspecified dementia without behavioral disturbance Status: Acute (2) Schizoaffective disorder Code(s): F25.9 - Schizoaffective disorder, unspecified Status: Acute - Plan Plan: Continue current tx plan Justification for Continued Inpatient Stay: risk of decompensation (1) Dementia Qualifiers: Dementia type: unspecified type Dementia behavioral disturbance: with behavioral disturbance Qualified Code(s): F03.91 - Unspecified dementia with behavioral disturbance
[2018-01-12] MEDS: Levothyroxine 88 MCG Tablet PO SCH (06:18)
[2018-01-12] MEDS: Insulin NovoLOG Aspart Correctional Sugar Inj SQ SCH ×4 (08:00→20:50)
[2018-01-12] MEDS: glipiZIDE 5 MG Tablet PO SCH ×2 (09:33→20:49)
[2018-01-12] MEDS: Senna/Docusate Sodium 8.6/50 MG Tablet PO SCH ×2 (09:36→20:49)
--- NOTE | 2018-01-12 11:01 | P.PN ---
Subjective Interval history: Follow up visit DM 2, hypothyroidism, dementia, schizoaffective disorder, anoxic brain injury. Patient seen and examined today. Reports nausea. Episode of vomiting yesterday. States he had last BM yesterday. Denies SOB/ dyspnea. Denies chest pain, palpitations, headaches, dizziness. Denies fevers, chills. Denies dysuria. Physical Exam Vital signs: Vital Signs 01/11/18 18:17 01/12/18 05:48 Temperature 98.7 F 98.1 F Pulse Rate 98 H 82 Respiratory Rate 16 16 Blood Pressure 127/85 113/73 Pulse Oximetry 95 93 L Intake & Output 01/11/18 01/12/18 01/12/18 18:59 06:59 18:59 Intake Total 340 / 340 Balance 340 / 340 Intake: Oral 240 / 240 Oral Supplement 100 / 100 Other: # Voids 3 Narrative: GENERAL: This is a thin appearing, appears older than stated age patient, in no apparent distress. SKIN: Warm and dry. HEENT: Normocephalic. Pupils equal round and reactive. Nose without bleeding. Airway patent. NECK: Trachea midline. Supple. CARDIOVASCULAR: Regular rate and rhythm without murmurs, gallops, or rubs. RESPIRATORY: Clear to auscultation. Breath sounds equal bilaterally. No wheezes , rales, or rhonchi. GASTROINTESTINAL: Abdomen soft, non-tender, nondistended. Bowel Sounds normoactive x4. MUSCULOSKELETAL: Extremities without clubbing, cyanosis. Bilateral lower extremity trace edema. NEUROLOGICAL: Awake and alert. Oriented to person, very forgetful. Confuse. Moves all extremities. Normal speech. Results - Labs CBC & Chem 7: 01/07/18 22:05 01/09/18 07:24 Laboratory Results - last 24 hr 01/11/18 01/11/18 01/11/18 11:35 16:28 19:55 POC Glucose 173 H 146 H 141 H Valproic Acid 01/12/18 01/12/18 05:35 08:02 POC Glucose 152 H Valproic Acid 71 Assessment and Plan - Plan Patient is a 62-year-old male with past medical history of DM 2, hypothyroidism , dementia, schizoaffective disorder, anoxic brain injury secondary to [place] who initially came into the hospital from cocaine under [facility] act. Patient has been combative with staff in his facility. He is admitted to medical psychiatry unit for further evaluation. Hospitalist consulted for assistance with medical management. Dementia, schizoaffective disorder -Managed by psychiatry team -On Aricept, Namenda DM 2 -Continue glipizide, insulin sliding scale -Hemoglobin A1c 8.7 -monitor Accu-Cheks. -Resume metformin Debility, BLE weakness History of CVA -Continue home medications including Plavix -PT eval and treat Hypothyroidism -Continue levothyroxine Acute kidney injury on chronic kidney disease -Possible ongoing chronic kidney disease secondary to diabetic nephropathy -Baseline creatinine 1.1, admitted with 1.43 -Avoid nephrotoxins. Encourage p.o. fluid intake. -Improved DVT Prop ambulation, Heparin Code Status: Full Code Discussed Condition With: Patient, nursing Discharge Planning: DC disposition by primary team
--- NOTE | 2018-01-12 15:45 | P.PNPSY ---
Subjective Remarks: Pt seen and discussed with staff. He requires constant supervision due to severe memory deficits. No aggression today. He gets easily irritable but has been more redirectable today Mental Status Examination Appearance: Appropriate Consciousness: Alert Orientation: Person, Place Motor Activity: Normal gait Speech: Unremarkable Language: Adequate Fund of Knowledge: Inadequate Attention and Concentration: Adequate Memory: Impaired Mood: Appropriate Affect: Appropriate Thought Process & Associations: Loose associations Thought Content: Bizarre thinking Hallucination Type: None Delusion Type: None Suicidal Ideation: No Suicidal Plan: No Suicidal Intention: No Homicidal Ideation: No Homicidal Plan: No Homicidal Intention: No Insight: Poor Judgment: Poor Assessment and Plan - Assessment (1) Dementia Code(s): F03.90 - Unspecified dementia without behavioral disturbance Status: Acute - Plan Plan: Continue current tx plan Justification for Continued Inpatient Stay: risk of decompensation (1) Dementia Qualifiers: Dementia type: unspecified type Dementia behavioral disturbance: with behavioral disturbance Qualified Code(s): F03.91 - Unspecified dementia with behavioral disturbance
[2018-01-13] MEDS: Levothyroxine 88 MCG Tablet PO SCH (05:31)
[2018-01-13] MEDS: Insulin NovoLOG Aspart Correctional Sugar Inj SQ SCH ×4 (07:40→21:50)
[2018-01-13] MEDS: glipiZIDE 5 MG Tablet PO SCH ×2 (09:22→21:00)
[2018-01-13] MEDS: Senna/Docusate Sodium 8.6/50 MG Tablet PO SCH ×2 (09:22→21:00)
--- NOTE | 2018-01-13 13:50 | P.PN ---
Subjective Interval history: Follow up visit DM 2, hypothyroidism, dementia, schizoaffective disorder, anoxic brain injury. Patient seen and examined today. Very confuse. Walking around his room and outside, trying to find the bathroom. Denies SOB/ dyspnea. Denies chest pain, palpitations, headaches, dizziness. Denies fevers, chills. Denies dysuria. Physical Exam Vital signs: Vital Signs 01/12/18 17:35 01/13/18 05:01 Temperature 98.4 F 99.2 F Pulse Rate 100 H 81 Respiratory Rate 18 15 Blood Pressure 138/62 132/73 Pulse Oximetry 94 L 95 Intake & Output 01/12/18 01/13/18 01/13/18 18:59 06:59 18:59 Intake Total 1560 / 1560 340 / 340 600 / 600 Balance 1560 / 1560 340 / 340 600 / 600 Intake: Oral 1560 / 1560 240 / 240 600 / 600 Oral Supplement 100 / 100 Other: # Voids 2 2 Narrative: GENERAL: This is a thin appearing, appears older than stated age patient, in no apparent distress. SKIN: Warm and dry. HEENT: Normocephalic. Pupils equal round and reactive. Nose without bleeding. Airway patent. NECK: Trachea midline. Supple. CARDIOVASCULAR: Regular rate and rhythm without murmurs, gallops, or rubs. RESPIRATORY: Clear to auscultation. Breath sounds equal bilaterally. No wheezes , rales, or rhonchi. GASTROINTESTINAL: Abdomen soft, non-tender, nondistended. Bowel Sounds normoactive x4. MUSCULOSKELETAL: Extremities without clubbing, cyanosis. Bilateral lower extremity trace edema. NEUROLOGICAL: Awake and alert. Oriented to person. Confuse. Moves all extremities. Normal speech. Results - Labs CBC & Chem 7: 01/07/18 22:05 01/13/18 16:11 Laboratory Results - last 24 hr 01/12/18 01/12/18 01/13/18 16:34 20:16 05:38 POC Glucose 125 H 152 H 145 H 01/13/18 11:12 POC Glucose 221 H Assessment and Plan - Plan Patient is a 62-year-old male with past medical history of DM 2, hypothyroidism , dementia, schizoaffective disorder, anoxic brain injury secondary to [place] who initially came into the hospital from cocaine under [facility] act. Patient has been combative with staff in his facility. He is admitted to medical psychiatry unit for further evaluation. Hospitalist consulted for assistance with medical management. Dementia, schizoaffective disorder -Managed by psychiatry team -On Aricept, Namenda DM 2 -Continue glipizide, insulin sliding scale -Hemoglobin A1c 8.7 -monitor Accu-Cheks. -DC metformin, retried but LONG TERM ACUTE CARE REGISTERED NURSE now elevated again. Will hold off with metformin start patient on insulin basal. Debility, BLE weakness History of CVA -Continue home medications including Plavix -PT eval and treat -Will need PT/OT in [place] Hypothyroidism -Continue levothyroxine Acute kidney injury on chronic kidney disease -Possible ongoing chronic kidney disease secondary to diabetic nephropathy -Baseline creatinine 1.1 -Avoid nephrotoxins. Encourage p.o. fluid intake. -LONG TERM ACUTE CARE REGISTERED NURSE 1.43 --1.15 -->1.53 -Monitor DVT Prop ambulation, Heparin Code Status: Full Code Discussed Condition With: Patient, nurse Discharge Planning: DC disposition by primary team
--- NOTE | 2018-01-13 16:31 | P.PNPSY ---
Subjective Remarks: Patient seen for follow, chart reviewed. Discussion nursing staff reported the patient confused, no behavioral issues. Patient was found lying hospital bed noted B, cooperative. Patient to be pleasant during interview continue with confusion at baseline secondary to dementia stating that over the weekend he had played football and was feeling sore from having played on Saturday. Patient also mentions having spoken with his uncle recently about fishing. Patient reports having some sleep difficulty at evening but has had Benadryl at night to help him sleep at times which has assisted in restful sleep. Patient reports his mood as being "good" denying any difficulty bowel movement, eating and drinking well denying any perceptional services or delusions. Review of Systems All other systems reviewed negative except as stated in HPI Mental Status Examination Appearance: Appropriate Consciousness: Alert Orientation: Person, Place Motor Activity: Normal gait Speech: Unremarkable Language: Adequate Fund of Knowledge: Inadequate Attention and Concentration: Adequate Memory: Impaired Mood: Appropriate Affect: Appropriate Thought Process & Associations: Loose associations Thought Content: Bizarre thinking Hallucination Type: None Delusion Type: None Suicidal Ideation: No Suicidal Plan: No Suicidal Intention: No Homicidal Ideation: No Homicidal Plan: No Homicidal Intention: No Insight: Poor Judgment: Poor Assessment and Plan - Assessment (1) Dementia Code(s): F03.90 - Unspecified dementia without behavioral disturbance Status: Acute - Plan Plan: Patient continues with baseline confusion at times needing direction where to find his restroom in his own room. We will continue current treatment. Patient with good behavioral control no aggressive or agitation since admission. We will continue to monitor mood and behavior. Hospitalist input appreciated. Continue recommendations as per prior medical team. Discharge planning in progress. Justification for Continued Inpatient Stay: At risk of further decompensation a lower level of care. (1) Dementia Qualifiers: Dementia type: unspecified type Dementia behavioral disturbance: with behavioral disturbance Qualified Code(s): F03.91 - Unspecified dementia with behavioral disturbance
[2018-01-13 17:08] LABS: Calcium 9.3 mg/dL (8.5-10.1); Carbon Dioxide 20.1 meq/L (21.0-32.0); Potassium 3.7 meq/L (3.5-5.1)
[2018-01-13] MEDS ORDERED: Insulin Detemir Inj 1,000 UNIT/10 ML Vial SQ SCH (21:00)
[2018-01-14] MEDS: Senna/Docusate Sodium 8.6/50 MG Tablet PO SCH ×2 (08:50→21:00)
[2018-01-14] MEDS: glipiZIDE 5 MG Tablet PO SCH ×2 (08:50→22:00)
[2018-01-14] MEDS: Levothyroxine 88 MCG Tablet PO SCH (08:55)
[2018-01-14] MEDS: Insulin NovoLOG Aspart Correctional Sugar Inj SQ SCH ×4 (09:19→22:00)
--- NOTE | 2018-01-14 14:43 | P.PN ---
Subjective Interval history: Follow up visit DM 2, hypothyroidism, dementia, schizoaffective disorder, anoxic brain injury. Patient seen and examined today. Denies SOB/ dyspnea. Denies chest pain, palpitations, headaches, dizziness. Denies fevers, chills. Denies dysuria. Physical Exam Vital signs: Vital Signs 01/13/18 18:06 01/14/18 06:07 Temperature 99.6 F 98 F Pulse Rate 66 89 Respiratory Rate 17 17 Blood Pressure 117/72 127/73 Pulse Oximetry 95 96 Intake & Output 01/13/18 01/14/18 01/14/18 18:59 06:59 18:59 Intake Total 960 / 960 340 / 340 Balance 960 / 960 340 / 340 Intake: Oral 960 / 960 240 / 240 Oral Supplement 100 / 100 Other: # Voids 2 Narrative: GENERAL: This is a thin appearing, appears older than stated age patient, in no apparent distress. SKIN: Warm and dry. HEENT: Normocephalic. Pupils equal round and reactive. Nose without bleeding. Airway patent. NECK: Trachea midline. Supple. CARDIOVASCULAR: Regular rate and rhythm without murmurs, gallops, or rubs. RESPIRATORY: Clear to auscultation. Breath sounds equal bilaterally. No wheezes , rales, or rhonchi. GASTROINTESTINAL: Abdomen soft, non-tender, nondistended. Bowel Sounds normoactive x4. MUSCULOSKELETAL: Extremities without clubbing, cyanosis. Bilateral lower extremity trace edema. NEUROLOGICAL: Awake and alert. Oriented to person. Confuse. Moves all extremities. Normal speech. Results - Labs CBC & Chem 7: 01/07/18 22:05 01/13/18 16:11 Laboratory Results - last 24 hr 01/13/18 01/13/18 01/13/18 16:11 16:33 20:12 Sodium 136 Potassium 3.7 Chloride 100 Carbon Dioxide 20.1 L Anion Gap 16 H BUN 23 H Creatinine 1.53 H Estimated GFR 46 L POC Glucose 126 H 117 H Random Glucose 121 H Calcium 9.3 01/14/18 01/14/18 06:40 11:05 Sodium Potassium Chloride Carbon Dioxide Anion Gap BUN Creatinine Estimated GFR POC Glucose 139 H 184 H Random Glucose Calcium Assessment and Plan - Plan Patient is a 62-year-old male with past medical history of DM 2, hypothyroidism , dementia, schizoaffective disorder, anoxic brain injury secondary to [place] who initially came into the hospital from cocaine under [facility] act. Patient has been combative with staff in his facility. He is admitted to medical psychiatry unit for further evaluation. Hospitalist consulted for assistance with medical management. Dementia, schizoaffective disorder -Managed by psychiatry team -On Aricept, Namenda DM 2 -Continue glipizide, insulin sliding scale -Hemoglobin A1c 8.7 -monitor Accu-Cheks. -DC metformin, retried but NEUROPHYSIOLOGIST now elevated again. -Levemir increase 5 units BID, Wean off glipizide if needed -Monitor for hypoglycemia Debility, BLE weakness History of CVA -Continue home medications including Plavix -PT eval and treat -Will need PT/OT in [place] Hypothyroidism -Continue levothyroxine Acute kidney injury on chronic kidney disease -Possible ongoing chronic kidney disease secondary to diabetic nephropathy -Baseline creatinine 1.1 -Avoid nephrotoxins. Encourage p.o. fluid intake. -NEUROPHYSIOLOGIST 1.43 --1.15 -->1.53 -Monitor DVT Prop ambulation, Heparin Code Status: Full code Discussed Condition With: Patient, nurse Discharge Planning: DC disposition by primary team
--- NOTE | 2018-01-14 15:50 | P.PNPSY ---
Subjective Remarks: Patient seen for follow, chart reviewed. Discussion nursing staff reported the patient compliant medication continues with confusion has redirected to his admission which is in his own room. Patient was found lying hospital bed noted B, cooperative. Patient states that initially "good" stating that he is eating and drinking well tolerated medications well with no physical complaints at this time. Patient states that he continues to feel sore from playing football previously. Patient continues with baseline confusion. Patient denies any perceptional disturbances. Review of Systems All other systems reviewed negative except as stated in HPI Mental Status Examination Appearance: Appropriate Consciousness: Alert Orientation: Person, Place Motor Activity: Normal gait Speech: Unremarkable Language: Adequate Fund of Knowledge: Inadequate Attention and Concentration: Adequate Memory: Impaired Mood: Appropriate Affect: Appropriate Thought Process & Associations: Loose associations Thought Content: Bizarre thinking Hallucination Type: None Delusion Type: None Suicidal Ideation: No Suicidal Plan: No Suicidal Intention: No Homicidal Ideation: No Homicidal Plan: No Homicidal Intention: No Insight: Poor Judgment: Poor Assessment and Plan - Assessment (1) Dementia Code(s): F03.90 - Unspecified dementia without behavioral disturbance Status: Acute - Plan Plan: Patient with good behavioral control, compliant with medications, no behavioral disturbances. Patient to continue current treatment. Patient continues with baseline confusion secondary to neurocognitive deficits. Treatment team attempted to communicate with residential facility to visit patient to assess appropriateness to return back to the facility. Discharge planning a progress. Justification for Continued Inpatient Stay: At risk of further decompensation a lower level care. (1) Dementia Qualifiers: Dementia type: unspecified type Dementia behavioral disturbance: with behavioral disturbance Qualified Code(s): F03.91 - Unspecified dementia with behavioral disturbance
[2018-01-14] MEDS: Insulin Detemir Inj 1,000 UNIT/10 ML Vial SQ SCH (22:41)
[2018-01-15] MEDS: Levothyroxine 88 MCG Tablet PO SCH (06:25)
[2018-01-15] MEDS: glipiZIDE 5 MG Tablet PO SCH ×2 (08:33→21:00)
[2018-01-15] MEDS: Senna/Docusate Sodium 8.6/50 MG Tablet PO SCH ×2 (08:35→21:00)
[2018-01-15] MEDS: Insulin Detemir Inj 1,000 UNIT/10 ML Vial SQ SCH ×2 (08:38→15:55)
[2018-01-15] MEDS: Insulin NovoLOG Aspart Correctional Sugar Inj SQ SCH ×4 (08:38→20:57)
--- NOTE | 2018-01-15 14:27 | P.PN ---
Subjective Interval history: Follow up visit DM 2, hypothyroidism, dementia, schizoaffective disorder, anoxic brain injury. Patient seen and examined today. States he is okay. Denies SOB/ dyspnea. Denies chest pain, palpitations, headaches, dizziness. Denies fevers, chills. Denies dysuria. Physical Exam Vital signs: Vital Signs 01/14/18 16:31 01/14/18 17:53 01/15/18 06:00 Temperature 99.1 F 98.6 F Pulse Rate 95 H 89 Respiratory Rate 17 16 Blood Pressure 121/80 126/82 Pulse Oximetry 98 95 Intake & Output 01/14/18 01/15/18 01/15/18 18:59 06:59 18:59 Intake Total 680 / 680 340 / 340 840 / 840 Balance 680 / 680 340 / 340 840 / 840 Intake: Oral 680 / 680 240 / 240 840 / 840 Oral Supplement 100 / 100 Other: # Voids 2 3 Narrative: GENERAL: This is a thin appearing, appears older than stated age patient, in no apparent distress. SKIN: Warm and dry. HEENT: Normocephalic. Pupils equal round and reactive. Nose without bleeding. Airway patent. NECK: Trachea midline. Supple. CARDIOVASCULAR: Regular rate and rhythm without murmurs, gallops, or rubs. RESPIRATORY: Clear to auscultation. Breath sounds equal bilaterally. No wheezes , rales, or rhonchi. GASTROINTESTINAL: Abdomen soft, non-tender, nondistended. Bowel Sounds normoactive x4. MUSCULOSKELETAL: Extremities without clubbing, cyanosis. Bilateral lower extremity trace edema. NEUROLOGICAL: Awake and alert. Oriented to person. Confuse. Moves all extremities. Normal speech. Results - Labs CBC & Chem 7: 01/07/18 22:05 01/13/18 16:11 Laboratory Results - last 24 hr 01/14/18 01/15/18 01/15/18 20:29 06:34 07:46 POC Glucose 197 H 174 H 175 H 01/15/18 11:39 POC Glucose 179 H Assessment and Plan - Plan Patient is a 62-year-old male with past medical history of DM 2, hypothyroidism , dementia, schizoaffective disorder, anoxic brain injury secondary to [place] who initially came into the hospital from cocaine under [facility] act. Patient has been combative with staff in his facility. He is admitted to medical psychiatry unit for further evaluation. Hospitalist consulted for assistance with medical management. Dementia, schizoaffective disorder -Managed by psychiatry team -On Aricept, Namenda DM 2 -Continue glipizide, insulin sliding scale -Hemoglobin A1c 8.7 -monitor Accu-Cheks. -DC metformin, retried but TYPE INSPECTOR now elevated again. -Levemir increase 10 units BID, Wean off glipizide if needed -Monitor for hypoglycemia Debility, BLE weakness History of CVA -Continue home medications including Plavix -PT eval and treat -Will need PT/OT in [place] Hypothyroidism -Continue levothyroxine Acute kidney injury on chronic kidney disease -Possible ongoing chronic kidney disease secondary to diabetic nephropathy -Baseline creatinine 1.1 -Avoid nephrotoxins. Encourage p.o. fluid intake. -TYPE INSPECTOR 1.43 --1.15 -->1.53 -Monitor DVT Prop ambulation, Heparin Code Status: Full code Discussed Condition With: Patient, nurse Discharge Planning: DC disposition by primary team
--- NOTE | 2018-01-15 15:45 | P.PNPSY ---
Subjective Remarks: Patient seen for follow, chart reviewed. Discussion nursing staff reported the patient with no behavioral disturbances, continues with confusion. Patient was found lying on hospital bed, calm and cooperative. Patient states feeling sore from football, reports adequate appetite, had difficulty with sleep last evening , reports good mood, denies any SI or HI, perceptual disturbances or delusions. Patient continues with baseline confusion. Review of Systems All other systems reviewed negative except as stated in HPI Mental Status Examination Appearance: Appropriate Consciousness: Alert Orientation: Person, Place Motor Activity: Normal gait Speech: Unremarkable Language: Adequate Fund of Knowledge: Inadequate Attention and Concentration: Adequate Memory: Impaired Mood: Appropriate Affect: Appropriate Thought Process & Associations: Intact, Loose associations Thought Content: Bizarre thinking Hallucination Type: None Delusion Type: None Suicidal Ideation: No Suicidal Plan: No Suicidal Intention: No Homicidal Ideation: No Homicidal Plan: No Homicidal Intention: No Insight: Poor Judgment: Poor Assessment and Plan - Assessment (1) Dementia Code(s): F03.90 - Unspecified dementia without behavioral disturbance Status: Acute - Plan Plan: Patient continues with baseline confusion, easily redirectable, no agitation or aggressive behavior. Patient compliant with treatment. Continue to monitor mood and behavior. Discharge planning in progress. Justification for Continued Inpatient Stay: At risk for further decompensation at lower level of care. (1) Dementia Qualifiers: Dementia type: unspecified type Dementia behavioral disturbance: with behavioral disturbance Qualified Code(s): F03.91 - Unspecified dementia with behavioral disturbance
[2018-01-16] MEDS: Levothyroxine 88 MCG Tablet PO SCH (06:43)
[2018-01-16] MEDS: Insulin NovoLOG Aspart Correctional Sugar Inj SQ SCH ×4 (08:19→22:10)
[2018-01-16] MEDS: glipiZIDE 5 MG Tablet PO SCH ×2 (08:21→22:03)
[2018-01-16] MEDS: Senna/Docusate Sodium 8.6/50 MG Tablet PO SCH ×2 (08:22→21:49)
[2018-01-16] MEDS: Insulin Detemir Inj 1,000 UNIT/10 ML Vial SQ SCH ×2 (08:52→21:53)
--- NOTE | 2018-01-16 11:32 | P.PN ---
Subjective Interval history: Follow up visit DM 2, hypothyroidism, dementia, schizoaffective disorder, anoxic brain injury, follicular abscess. Patient seen and examined today. States he is okay. Notable follicular abscess Left upper back, near neck. Denies SOB/ dyspnea. Denies chest pain, palpitations, headaches, dizziness. Denies fevers, chills. Denies dysuria. Physical Exam Vital signs: Vital Signs 01/15/18 18:06 01/16/18 05:22 Temperature 99.0 F 97.7 F Pulse Rate 97 H 72 Respiratory Rate 17 17 Blood Pressure 125/85 126/74 Pulse Oximetry 95 Intake & Output 01/15/18 01/16/18 01/16/18 18:59 06:59 18:59 Intake Total 1919 480 / 480 280 / 280 Output Total Balance 1919 479 / 479 280 / 280 Intake: Oral 1919 480 / 480 280 / 280 Output: Urine Narrative: GENERAL: This is a thin appearing, appears older than stated age patient, in no apparent distress. SKIN: Warm and dry. follicular abscess Left upper back, near neck. HEENT: Normocephalic. Pupils equal round and reactive. Nose without bleeding. Airway patent. NECK: Trachea midline. Supple. CARDIOVASCULAR: Regular rate and rhythm without murmurs, gallops, or rubs. RESPIRATORY: Clear to auscultation. Breath sounds equal bilaterally. No wheezes , rales, or rhonchi. GASTROINTESTINAL: Abdomen soft, non-tender, nondistended. Bowel Sounds normoactive x4. MUSCULOSKELETAL: Extremities without clubbing, cyanosis. Bilateral lower extremity trace edema. NEUROLOGICAL: Awake and alert. Oriented to person. Confuse. Moves all extremities. Normal speech. Results - Labs CBC & Chem 7: 01/07/18 22:05 01/13/18 16:11 Laboratory Results - last 24 hr 01/15/18 01/15/18 01/15/18 11:39 16:25 20:36 POC Glucose 179 H 147 H 179 H 01/16/18 01/16/18 01/16/18 06:26 07:26 11:15 POC Glucose 109 118 H 184 H Assessment and Plan - Plan Patient is a 62-year-old male with past medical history of DM 2, hypothyroidism , dementia, schizoaffective disorder, anoxic brain injury secondary to [place] who initially came into the hospital from cocaine under [facility] act. Patient has been combative with staff in his facility. He is admitted to medical psychiatry unit for further evaluation. Hospitalist consulted for assistance with medical management. Follicular abscess Left upper back, near neck -Drained, drainage for culture -Warm compresses, mupirocin ointment. -Monitor Dementia, schizoaffective disorder -Managed by psychiatry team -On Aricept, Namenda DM 2 -Continue glipizide, insulin sliding scale -Hemoglobin A1c 8.7 -monitor Accu-Cheks. -DC metformin, retried but TECHNICAL SERVICES REP now elevated again. -Levemir increase 10 units BID, Wean off glipizide -Monitor for hypoglycemia Debility, BLE weakness History of CVA -Continue home medications including Plavix -PT eval and treat -Will need PT/OT in [place] Hypothyroidism -Continue levothyroxine Acute kidney injury on chronic kidney disease -Possible ongoing chronic kidney disease secondary to diabetic nephropathy -Baseline creatinine 1.1 -Avoid nephrotoxins. Encourage p.o. fluid intake. -TECHNICAL SERVICES REP 1.43 --1.15 -->1.53 -Monitor DVT Prop ambulation, Heparin Code Status: Full Code Discussed Condition With: patient, nurse Discharge Planning: DC disposition by primary team
[2018-01-16] MEDS ORDERED: LORazepam 0.5 MG Tablet PO ONE (16:00)
[2018-01-16] MEDS: LORazepam 0.5 MG Tablet PO SCH (18:14)
--- NOTE | 2018-01-16 20:26 | P.PNPSY ---
Subjective Remarks: Patient seen for follow, chart reviewed. Discussion nursing staff reported the patient with no behavioral disturbances. Patient presented to mental health court today which patient was maintained on a continuance. Patient since admission and had not had any behavioral disturbances, pleasant, cooperative with staff. Patient noted to have occasional moments of irritability but easily redirectable. Patient continues with baseline confusion. Denies any perceptional disturbances or delusions. Review of Systems All other systems reviewed negative except as stated in HPI Mental Status Examination Appearance: Appropriate Consciousness: Alert Orientation: Person, Place Motor Activity: Normal gait Speech: Unremarkable Language: Adequate Fund of Knowledge: Inadequate Attention and Concentration: Adequate Memory: Impaired Mood: Appropriate Affect: Appropriate Thought Process & Associations: Intact, Loose associations Thought Content: Bizarre thinking Hallucination Type: None Delusion Type: None Suicidal Ideation: No Suicidal Plan: No Suicidal Intention: No Homicidal Ideation: No Homicidal Plan: No Homicidal Intention: No Insight: Poor Judgment: Poor Assessment and Plan - Assessment (1) Dementia Code(s): F03.90 - Unspecified dementia without behavioral disturbance Status: Acute - Plan Plan: Patient this time with good behavioral control no episodes of agitation, compliant with medication and cooperative with staff. We will continue to monitor mood and behavior. Continue current treatment. We will add Lorazepam 1 mg p.o. every 6 hours as needed anxiety. Discharge planning a progress. Justification for Continued Inpatient Stay: At risk for further decompensation if at lower level of care. (1) Dementia Qualifiers: Dementia type: unspecified type Dementia behavioral disturbance: with behavioral disturbance Qualified Code(s): F03.91 - Unspecified dementia with behavioral disturbance
[2018-01-17] MEDS: LORazepam 0.5 MG Tablet PO SCH ×4 (01:10→17:56)
[2018-01-17] MEDS: Acetaminophen 325 MG Tablet PO PRN (01:16)
[2018-01-17] MEDS: Levothyroxine 88 MCG Tablet PO SCH (05:47)
[2018-01-17] MEDS: Insulin NovoLOG Aspart Correctional Sugar Inj SQ SCH ×4 (08:33→23:11)
[2018-01-17] MEDS: glipiZIDE 5 MG Tablet PO SCH ×2 (08:38→23:11)
[2018-01-17] MEDS: Senna/Docusate Sodium 8.6/50 MG Tablet PO SCH ×2 (08:42→23:09)
[2018-01-17] MEDS: Insulin Detemir Inj 1,000 UNIT/10 ML Vial SQ SCH ×2 (08:59→23:10)
--- NOTE | 2018-01-17 10:35 | P.PN ---
Subjective Interval history: Follow up visit DM 2, hypothyroidism, dementia, schizoaffective disorder, anoxic brain injury, follicular abscess. Patient seen and examined today. Very confuse. States "I want to go [place], help me." As per nursing, trying to climb OOB all morning, had a fall but no injuries noted or complained of. PT has also seen the patient. Patient denies pain or discomfort. Notable agitation. Physical Exam Vital signs: Vital Signs 01/16/18 17:18 01/17/18 05:35 Temperature 98.3 F 97.2 F L Pulse Rate 78 84 Respiratory Rate 16 18 Blood Pressure 121/81 115/67 Pulse Oximetry 97 95 Intake & Output 01/16/18 01/17/18 01/17/18 18:59 06:59 18:59 Intake Total 760 / 760 1200 / 1200 Balance 760 / 760 1200 / 1200 Intake: Oral 760 / 760 1200 / 1200 Other: # Voids 4 Narrative: GENERAL: This is a thin appearing, appears older than stated age patient, in no apparent distress. SKIN: Warm and dry. Follicular abscess Left upper back, near neck. HEENT: Normocephalic. Pupils equal round and reactive. Nose without bleeding. Airway patent. NECK: Trachea midline. Supple. CARDIOVASCULAR: Regular rate and rhythm without murmurs, gallops, or rubs. RESPIRATORY: Clear to auscultation. Breath sounds equal bilaterally. No wheezes , rales, or rhonchi. GASTROINTESTINAL: Abdomen soft, non-tender, nondistended. Bowel Sounds normoactive x4. MUSCULOSKELETAL: Extremities without clubbing, cyanosis. Bilateral lower extremity trace edema. NEUROLOGICAL: Awake and alert. Oriented to person. Confuse. Moves all extremities. Normal speech. Results - Labs CBC & Chem 7: 01/07/18 22:05 01/13/18 16:11 Laboratory Results - last 24 hr 01/16/18 01/16/18 01/16/18 11:15 17:34 20:18 POC Glucose 184 H 184 H 143 H 01/17/18 07:52 POC Glucose 187 H Microbiology 01/16/18 10:03 Abscess - Back Gram Stain - Final Assessment and Plan - Plan Patient is a 62-year-old male with past medical history of DM 2, hypothyroidism , dementia, schizoaffective disorder, anoxic brain injury secondary to [place] who initially came into the hospital from cocaine under [facility] act. Patient has been combative with staff in his facility. He is admitted to medical psychiatry unit for further evaluation. Hospitalist consulted for assistance with medical management. S/P Fall -Fall precaution -Monitor for any symptomatology -Denies pain and discomfort on exam Follicular abscess Left upper back, near neck -Drained, drainage for culture. Now erythematous, drainage opening closed. -Warm compresses, mupirocin ointment. -Will consider gen surgery to see patient for possible I&D at the bedside. Dementia, schizoaffective disorder -Managed by psychiatry team -On Aricept, Namenda DM 2 -Continue insulin sliding scale -Hemoglobin A1c 8.7 -monitor Accu-Cheks. -DC metformin, retried but DEAN OF [employer]ACULTY now elevated again. -Increase Levemir increase 12 units BID, Wean off glipizide -Monitor for hypoglycemia Debility, BLE weakness History of CVA -Continue home medications including Plavix -PT eval and treat -Will need PT/OT in [place] Hypothyroidism -Continue levothyroxine Acute kidney injury on chronic kidney disease -Possible ongoing chronic kidney disease secondary to diabetic nephropathy -Baseline creatinine 1.1 -Avoid nephrotoxins. Encourage p.o. fluid intake. -DEAN OF FACULTY 1.43 --1.15 -->1.53 -Monitor DVT Prop ambulation, Heparin Code Status: Full code Discussed Condition With: Patient, nurse Discharge Planning: DC disposition by primary team
[2018-01-17 16:54] LABS: Albumin 3.8 g/dL (3.4-5.0); Anion Gap 10 meq/L (5-15); Aspartate Aminotransferase 32 U/L (15-37); Blood Urea Nitrogen 21 mg/dL (7-18); Calcium 8.8 mg/dL (8.5-10.1); Carbon Dioxide 27.5 meq/L (21.0-32.0); Chloride 101 meq/L (98-107); Glomerular Filtration Rate 46 mL/min (>89); Glucose,Random 265 mg/dL (74-106); Potassium 3.7 meq/L (3.5-5.1); Sodium 138 meq/L (136-145)
[2018-01-17 16:57] LABS: Alanine Aminotransferase 19 U/L (12-78); Alkaline Phosphatase 90 U/L (45-117); Total Protein 7.9 g/dL (6.4-8.2)
--- NOTE | 2018-01-17 20:10 | P.PNPSY ---
Subjective Remarks: Patient seen for follow, chart reviewed. Discussion nursing staff reported the patient is confused, had a slight follow this morning which was evaluated by medical team with no apparent injuries as patient was attempting to climb out of his chair. Patient was found lying on hospital bed, noted to have been irritable prior to interview and as redirectable but after interview began with episodes of yelling which he required Ativan x 1. He denies any physical complaints, asking to speak to his which patient has done frequently throughout admission. Review of Systems All other systems reviewed negative except as stated in HPI Mental Status Examination Appearance: Appropriate Consciousness: Alert Orientation: Person, Place Motor Activity: Normal gait Speech: Unremarkable Language: Adequate Fund of Knowledge: Inadequate Attention and Concentration: Adequate Memory: Impaired Mood: Appropriate Affect: Appropriate Thought Process & Associations: Intact, Loose associations Thought Content: Bizarre thinking Hallucination Type: None Delusion Type: None Suicidal Ideation: No Suicidal Plan: No Suicidal Intention: No Homicidal Ideation: No Homicidal Plan: No Homicidal Intention: No Insight: Poor Judgment: Poor Assessment and Plan - Assessment (1) Dementia Code(s): F03.90 - Unspecified dementia without behavioral disturbance Status: Acute - Plan Plan: Patient has had episodes of irritability and yelling at times which he required redirection and Ativan as needed. Will order labs and UA. Patient continues with baseline confusion. Continue rest of medications, continue to monitor mood and behavior. Discharge planning in progress. Justification for Continued Inpatient Stay: At risk of further decompensation at lower level care. (1) Dementia Qualifiers: Dementia type: unspecified type Dementia behavioral disturbance: with behavioral disturbance Qualified Code(s): F03.91 - Unspecified dementia with behavioral disturbance
[2018-01-18] MEDS: LORazepam 0.5 MG Tablet PO SCH ×4 (01:15→17:55)
[2018-01-18] MEDS: Levothyroxine 88 MCG Tablet PO SCH (06:34)
[2018-01-18] MEDS: Insulin NovoLOG Aspart Correctional Sugar Inj SQ SCH ×4 (07:54→21:47)
[2018-01-18] MEDS: Senna/Docusate Sodium 8.6/50 MG Tablet PO SCH ×2 (08:59→21:46)
[2018-01-18] MEDS: Insulin Detemir Inj 1,000 UNIT/10 ML Vial SQ SCH ×2 (09:01→21:45)
--- NOTE | 2018-01-18 09:56 | P.PN ---
Subjective Interval history: Follow up visit DM 2, hypothyroidism, dementia, schizoaffective disorder, anoxic brain injury, follicular abscess. Patient seen and examined today. Hypoglycemia episode this morning. Patient states he is doing okay. Denies fevers, chills, nausea, vomiting, diarrhea. Denies chest pain, palpitations, dizziness, headaches. Physical Exam Vital signs: Vital Signs 01/17/18 18:00 01/17/18 20:00 01/17/18 22:00 Temperature 97.8 F Pulse Rate 111 H Respiratory Rate 18 18 16 Blood Pressure 138/81 Pulse Oximetry 95 01/18/18 03:18 01/18/18 05:00 01/18/18 06:09 Temperature 97.9 F 99.3 F 99.3 F Pulse Rate 100 H 91 H 91 H Respiratory Rate 16 16 16 Blood Pressure 125/82 136/85 136/85 Pulse Oximetry 96 96 Intake & Output 01/17/18 01/18/18 01/18/18 18:59 06:59 18:59 Intake Total 480 / 480 360 / 360 Balance 480 / 480 360 / 360 Intake: Oral 480 / 480 360 / 360 Other: # Voids 0 Narrative: GENERAL: This is a thin appearing, appears older than stated age patient, in no apparent distress. SKIN: Warm and dry. Follicular abscess Left upper back, near neck. HEENT: Normocephalic. Pupils equal round and reactive. Nose without bleeding. Airway patent. NECK: Trachea midline. Supple. CARDIOVASCULAR: Regular rate and rhythm without murmurs, gallops, or rubs. RESPIRATORY: Clear to auscultation. Breath sounds equal bilaterally. No wheezes , rales, or rhonchi. GASTROINTESTINAL: Abdomen soft, non-tender, nondistended. Bowel Sounds normoactive x4. MUSCULOSKELETAL: Extremities without clubbing, cyanosis. Bilateral lower extremity trace edema. NEUROLOGICAL: Awake and alert. Oriented to person. Confuse. Moves all extremities. Normal speech. Results - Labs CBC & Chem 7: 01/18/18 09:50 01/18/18 09:50 Laboratory Results - last 24 hr 01/17/18 01/17/18 01/17/18 11:00 16:05 16:30 Sodium 138 Potassium 3.7 Chloride 101 Carbon Dioxide 27.5 Anion Gap 10 BUN 21 H Creatinine 1.54 H Estimated GFR 46 L POC Glucose 114 H 298 H Random Glucose 265 H Calcium 8.8 Total Bilirubin 0.4 AST 32 ALT 19 Alkaline Phosphatase 90 Total Protein 7.9 Albumin 3.8 01/17/18 01/17/18 01/18/18 20:42 22:24 05:29 Sodium Potassium Chloride Carbon Dioxide Anion Gap BUN Creatinine Estimated GFR POC Glucose 51 L 72 159 H Random Glucose Calcium Total Bilirubin AST ALT Alkaline Phosphatase Total Protein Albumin 01/18/18 07:40 Sodium Potassium Chloride Carbon Dioxide Anion Gap BUN Creatinine Estimated GFR POC Glucose 176 H Random Glucose Calcium Total Bilirubin AST ALT Alkaline Phosphatase Total Protein Albumin Microbiology 01/16/18 10:03 Abscess - Back Gram Stain - Final 01/16/18 10:03 Abscess - Back Wound Culture - Preliminary Heavy growth normal skin kelin at 24 hours Assessment and Plan - Plan Patient is a 62-year-old male with past medical history of DM 2, hypothyroidism , dementia, schizoaffective disorder, anoxic brain injury secondary to [place] who initially came into the hospital from cocaine under [facility] act. Patient has been combative with staff in his facility. He is admitted to medical psychiatry unit for further evaluation. Hospitalist consulted for assistance with medical management. S/P Fall -Fall precaution -Monitor for any symptomatology -Denies pain and discomfort on exam Follicular abscess Left upper back, near neck Leukocytosis -Drained. Now erythematous, smaller in size -Warm compresses, mupirocin ointment. -Continue to monitor. Draining. Wound care. -Culture heavy growth of normal skin kelin. -WBC 16.4, maybe reactive. Monitor CBC -Keflex Dementia, schizoaffective disorder -Managed by psychiatry team -On Aricept, Namenda DM 2 -Continue insulin sliding scale -Hemoglobin A1c 8.7 -monitor Accu-Cheks. 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 -Levemir increase 12 units BID, DC glipizide -Monitor for hypoglycemia -Continue to monitor. Debility, BLE weakness History of CVA -Continue home medications including Plavix -PT eval and treat -Will need PT/OT in [place] Hypothyroidism -Continue levothyroxine Acute kidney injury on chronic kidney disease -Possible ongoing chronic kidney disease secondary to diabetic nephropathy -Baseline creatinine 1.1 -Avoid nephrotoxins. Encourage p.o. fluid intake. 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
[2018-01-18 10:35] LABS: Baso % (Auto) 0.2 % (0.0-2.0); Hematocrit 45.8 % (39.0-51.0); Hemoglobin 14.7 gm/dL (13.0-17.0); Lymph # (Auto) 0.6 th/mm3 (1.0-4.8); Lymph % (Auto) 3.7 % (9.0-44.0); Mean Corpuscular HGB Conc 32.2 % (32.0-36.0); Mean Platelet Volume 7.8 fL (7.0-11.0); Mono # (Auto) 0.9 th/mm3 (0.0-0.9); Mono % (Auto) 5.5 % (0.0-8.0); Neut # (Auto) 14.8 th/mm3 (1.8-7.7); Neut % (Auto) 90.6 % (16.0-70.0); Platelet Count 248 th/mm3 (150-450); Red Blood Count 5.45 mil/mm3 (4.50-5.90); Red Cell Distribution Width 16.1 % (11.6-17.2); White Blood Count 16.4 th/mm3 (4.0-11.0)
[2018-01-18 11:05] LABS: Calcium 8.5 mg/dL (8.5-10.1); Carbon Dioxide 28.1 meq/L (21.0-32.0); Potassium 4.1 meq/L (3.5-5.1)
--- NOTE | 2018-01-18 15:58 | P.PNPSY ---
Subjective Remarks: Reviewed electronic medical records and discussed case with staff. Follow-up was conducted in patient's room with nurse present. Nurse reports that today the patient has mostly been sleeping. He has been cooperative with his care. He ate breakfast this morning. When speaking with the patient, he reports that he feels "weak and tired". He is sleeping in bed, and rises to verbal stimuli. Mental Status Examination Appearance: Appropriate Consciousness: Alert Orientation: Person, Place Motor Activity: Normal gait Speech: Unremarkable Language: Adequate Fund of Knowledge: Inadequate Attention and Concentration: Adequate Memory: Impaired Mood: Appropriate Affect: Appropriate Thought Process & Associations: Intact, Loose associations Thought Content: Bizarre thinking Hallucination Type: None Delusion Type: None Suicidal Ideation: No Suicidal Plan: No Suicidal Intention: No Homicidal Ideation: No Homicidal Plan: No Homicidal Intention: No Insight: Poor Judgment: Poor Assessment and Plan - Plan Plan: Patient will be reevaluated Saturday by the attending psychiatrist. Continue with current treatment plan. Justification for Continued Inpatient Stay: Moving this patient to a less restrictive environment would likely result in decompensation.
[2018-01-18] MEDS: Acetaminophen 325 MG Tablet PO PRN (22:07)
[2018-01-19] MEDS: LORazepam 0.5 MG Tablet PO SCH ×4 (01:44→17:34)
[2018-01-19] MEDS: Levothyroxine 88 MCG Tablet PO SCH (06:24)
[2018-01-19] MEDS: Senna/Docusate Sodium 8.6/50 MG Tablet PO SCH ×2 (08:10→20:41)
[2018-01-19] MEDS: Insulin Detemir Inj 1,000 UNIT/10 ML Vial SQ SCH ×2 (08:12→21:23)
[2018-01-19] MEDS: Insulin NovoLOG Aspart Correctional Sugar Inj SQ SCH ×4 (08:12→21:23)
[2018-01-19 10:06] LABS: Baso # (Auto) 0.1 th/mm3 (0.0-0.2); Baso % (Auto) 0.6 % (0.0-2.0); Eos # (Auto) 0.2 th/mm3 (0.0-0.4); Eos % (Auto) 1.9 % (0.0-4.0); Hematocrit 43.3 % (39.0-51.0); Hemoglobin 13.9 gm/dL (13.0-17.0); Lymph # (Auto) 0.7 th/mm3 (1.0-4.8); Lymph % (Auto) 7.1 % (9.0-44.0); Mean Corpuscular HGB Conc 32.1 % (32.0-36.0); Mean Corpuscular Hemoglobin 27.3 pg (27.0-34.0); Mean Corpuscular Volume 85.1 fL (80.0-100.0); Mean Platelet Volume 7.9 fL (7.0-11.0); Mono # (Auto) 0.7 th/mm3 (0.0-0.9); Mono % (Auto) 6.9 % (0.0-8.0); Neut # (Auto) 8.4 th/mm3 (1.8-7.7); Neut % (Auto) 83.5 % (16.0-70.0); Platelet Count 220 th/mm3 (150-450); Red Blood Count 5.09 mil/mm3 (4.50-5.90); Red Cell Distribution Width 16.1 % (11.6-17.2)
--- NOTE | 2018-01-19 11:28 | P.PN ---
Subjective Interval history: Follow up visit DM 2, hypothyroidism, dementia, schizoaffective disorder, anoxic brain injury, follicular abscess. Patient seen and examined today. States he is doing okay. Oriented to year, place, and president. Denies fevers , chills, nausea, vomiting, diarrhea. Denies chest pain, palpitations, dizziness, headaches. Physical Exam Vital signs: Vital Signs 01/18/18 18:00 01/19/18 06:21 Temperature 97.7 F 98.2 F Pulse Rate 112 H 95 H Respiratory Rate 20 16 Blood Pressure 127/76 110/71 Pulse Oximetry 95 95 Intake & Output 01/18/18 01/19/18 01/19/18 18:59 06:59 18:59 Intake Total 1919 840 / 840 Balance 1919 840 / 840 Intake: Oral 1919 840 / 840 Other: # Voids 3 0 Narrative: GENERAL: This is a thin appearing, appears older than stated age patient, in no apparent distress. SKIN: Warm and dry. Follicular abscess Left upper back, near neck. HEENT: Normocephalic. Pupils equal round and reactive. Nose without bleeding. Airway patent. NECK: Trachea midline. Supple. CARDIOVASCULAR: Regular rate and rhythm without murmurs, gallops, or rubs. RESPIRATORY: Clear to auscultation. Breath sounds equal bilaterally. No wheezes , rales, or rhonchi. GASTROINTESTINAL: Abdomen soft, non-tender, nondistended. Bowel Sounds normoactive x4. MUSCULOSKELETAL: Extremities without clubbing, cyanosis. Bilateral lower extremity trace edema. NEUROLOGICAL: Awake and alert. Oriented to person. Confuse. Moves all extremities. Normal speech. Results - Labs CBC & Chem 7: 01/19/18 09:44 01/18/18 09:50 Laboratory Results - last 24 hr 01/18/18 01/18/18 01/18/18 11:19 16:11 19:45 WBC RBC Hgb Hct MCV MCH MCHC RDW Plt Count MPV Neut % (Auto) Lymph % (Auto) Craig % (Auto) Eos % (Auto) Baso % (Auto) Neut # (Auto) Lymph # (Auto) Craig # (Auto) Eos # (Auto) Baso # (Auto) WBC Differential Differential Comment POC Glucose 133 H 147 H 189 H 01/19/18 01/19/18 07:16 09:44 WBC 10.0 RBC 5.09 Hgb 13.9 Hct 43.3 MCV 85.1 MCH 27.3 MCHC 32.1 RDW 16.1 Plt Count 220 MPV 7.9 Neut % (Auto) 83.5 H Lymph % (Auto) 7.1 L Craig % (Auto) 6.9 Eos % (Auto) 1.9 Baso % (Auto) 0.6 Neut # (Auto) 8.4 H Lymph # (Auto) 0.7 L Craig # (Auto) 0.7 Eos # (Auto) 0.2 Baso # (Auto) 0.1 WBC Differential . Differential Comment Auto diff final POC Glucose 108 Microbiology 01/16/18 10:03 Abscess - Back Gram Stain - Final 01/16/18 10:03 Abscess - Back Wound Culture - Final Heavy growth normal skin kelin No anaerobes isolated Assessment and Plan - Plan Patient is a 62-year-old male with past medical history of DM 2, hypothyroidism , dementia, schizoaffective disorder, anoxic brain injury secondary to [place] who initially came into the hospital from cocaine under [facility] act. Patient has been combative with staff in his facility. He is admitted to medical psychiatry unit for further evaluation. Hospitalist consulted for assistance with medical management. S/P Fall -Fall precaution -Monitor for any symptomatology -Denies pain and discomfort on exam Follicular abscess Left upper back, near neck Leukocytosis -Drained. Erythematous, smaller in size -Warm compresses, mupirocin ointment. -Continue to monitor. Draining. Wound care. -Culture heavy growth of normal skin kelin. -WBC 16.4, maybe reactive. Recent 10.0 -DC Keflex Dementia, schizoaffective disorder -Managed by psychiatry team -On Aricept, Namenda DM 2 -Continue insulin sliding scale -Hemoglobin A1c 8.7 -monitor Accu-Cheks. 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 -Levemir increase 12 units BID, DC glipizide -Monitor for hypoglycemia -Continue to monitor. Debility, BLE weakness History of CVA -Continue home medications including Plavix -PT eval and treat -Will need PT/OT in [place] Hypothyroidism -Continue levothyroxine Acute kidney injury on chronic kidney disease -Possible ongoing chronic kidney disease secondary to diabetic nephropathy -Baseline creatinine 1.1 -Avoid nephrotoxins. Encourage p.o. fluid intake. -DIRECTIONAL BORE OPERATOR 1.43 --1.15 -->1.53 -->1.37 -Monitor DVT Prop ambulation, Heparin Code Status: Full Code Discussed Condition With: Patient, nursing Discharge Planning: DC disposition by primary team
--- NOTE | 2018-01-19 13:58 | P.PNPSY ---
Subjective Remarks: The patient was seen today for psychiatric reevaluation. He reports that he feels much better today. He continues to be disoriented in time and place, but he is calm and pleasant. He has being eating all his food, taking showers, taking his medications appropriately, no significant side effects reported. Mental Status Examination Appearance: Appropriate Consciousness: Alert Orientation: Person, Place Motor Activity: Normal gait Speech: Unremarkable Language: Adequate Fund of Knowledge: Inadequate Attention and Concentration: Adequate Memory: Impaired Mood: Appropriate Affect: Appropriate Thought Process & Associations: Intact, Loose associations Thought Content: Bizarre thinking Hallucination Type: None Delusion Type: None Suicidal Ideation: No Suicidal Plan: No Suicidal Intention: No Homicidal Ideation: No Homicidal Plan: No Homicidal Intention: No Insight: Poor Judgment: Poor Assessment and Plan - Assessment (1) Dementia Code(s): F03.90 - Unspecified dementia without behavioral disturbance Status: Acute - Plan Plan: Continue current psychotropic regimen. Brief supportive psychotherapy provided Justification for Continued Inpatient Stay: Continue admission for stabilization. (1) Dementia Qualifiers: Dementia type: unspecified type Dementia behavioral disturbance: with behavioral disturbance Qualified Code(s): F03.91 - Unspecified dementia with behavioral disturbance
[2018-01-20] MEDS: LORazepam 0.5 MG Tablet PO SCH ×3 (06:21→17:47)
[2018-01-20] MEDS: Levothyroxine 88 MCG Tablet PO SCH (06:21)
[2018-01-20] MEDS: Insulin NovoLOG Aspart Correctional Sugar Inj SQ SCH ×4 (08:12→21:01)
[2018-01-20] MEDS: Insulin Detemir Inj 1,000 UNIT/10 ML Vial SQ SCH ×2 (09:48→21:01)
[2018-01-20] MEDS: Senna/Docusate Sodium 8.6/50 MG Tablet PO SCH ×2 (09:48→21:01)
--- NOTE | 2018-01-20 10:47 | P.PN ---
Subjective Interval history: Follow-up of patient with diabetes, dementia, hypothyroidism, anoxic brain injury. Patient seen and examined. Patient reports some shortness of breath when he was washing up this morning but states he feels fine now. He denies any associated cough or chest pain. He denies any palpitations. He denies any nausea, vomiting or abdominal pain. Physical Exam Vital signs: Vital Signs 01/19/18 18:12 01/20/18 06:05 Temperature 97.6 F 98.3 F Pulse Rate 97 H 94 H Respiratory Rate 18 16 Blood Pressure 118/78 111/69 Pulse Oximetry 98 97 Intake & Output 01/19/18 01/20/18 01/20/18 18:59 06:59 18:59 Intake Total 240 / 240 1500 / 1500 720 / 720 Balance 240 / 240 1500 / 1500 720 / 720 Weight 64.9 kg Intake: Oral 240 / 240 1500 / 1500 720 / 720 Other: # Voids 1 Narrative: GENERAL: This is a thin well developed male patient, in no apparent distress. Awake and alert. SKIN: Warm and dry. 3x3cm nonfluctuant lesion with small punctate opening noted on left upper back, no e/o infection. Likely EIC. +psoriatic rash HEENT: Normocephalic. Pupils equal round and reactive. Sclera anicteric bilaterally. Nose without bleeding. Airway patent. MMM. NECK: Trachea midline. CARDIOVASCULAR: Regular rate and rhythm. +Murmur. RESPIRATORY: Clear to auscultation. Breath sounds equal bilaterally. No wheezes , rales, or rhonchi. GASTROINTESTINAL: Abdomen soft, non-tender, nondistended. Bowel Sounds normoactive x4. MUSCULOSKELETAL: Extremities without clubbing, cyanosis. Bilateral lower extremity trace edema. NEUROLOGICAL: Awake and alert. Oriented to person. Confused. Moves all extremities spontaneously. Normal speech. PSYCHIATRIC: Calm and cooperative. Results - Labs CBC & Chem 7: 01/19/18 09:44 01/18/18 09:50 Laboratory Results - last 24 hr 01/19/18 01/19/18 01/19/18 11:16 16:14 21:02 POC Glucose 128 H 117 H 193 H 01/20/18 07:51 POC Glucose 89 Assessment and Plan - Plan 62-year-old male with past medical history of DM 2, hypothyroidism, dementia, schizoaffective disorder, anoxic brain injury secondary to [place] who initially came into the hospital from cocaine under [facility] act. Patient has been combative with staff in his facility. He is admitted to medical psychiatry unit for further evaluation. Hospitalist consulted for assistance with medical management. Dementia, schizoaffective disorder Hx of anoxic brain injury -Managed by psychiatry team -On Aricept, Namenda DM 2 A1c 8.7 -Continue accucheks and insulin sliding scale -Metformin discontinued 2/2 elevated creatinine -continue on Levemir 12 units BID -Monitor for hypoglycemia Debility, BLE weakness History of CVA -Continue home medications including Plavix -continue with PT -Will need PT/OT in [place] Hypothyroidism -Continue levothyroxine Acute kidney injury on chronic kidney disease Possible ongoing chronic kidney disease secondary to diabetic nephropathy Baseline creatinine 1.1 -Avoid nephrotoxins. Encourage p.o. fluid intake. -creatinine trending down -Monitor kidney function as indicated Lesion left upper back, likely epidural inclusion cyst No evidence of infection -monitor -recommend outpatient follow up with PCP or dermatology Psoriasis -Apply calcipotriol cream BID DVT Prop ambulation, Heparin Code Status: FULL Discussed Condition With: patient, nursing staff
--- NOTE | 2018-01-20 16:43 | P.PNPSY ---
Subjective Remarks: Patient seen for follow-up, chart reviewed. Discussion with nursing staff reported that the patient is doing better, had a good weekend, continues to work with physical therapy and has had good behavior. Patient was found lying hospital bed noted become cooperative also noted to have been working with physical therapy prior to interview. Patient states that he is feeling "tired" sore from the exercise. Patient states that he has feeling well, denying any other physical complaints, denying any perceptional disturbances or delusions but continues with baseline confusion. Review of Systems All other systems reviewed negative except as stated in HPI Mental Status Examination Appearance: Appropriate Consciousness: Alert Orientation: Person, Place Motor Activity: Normal gait Speech: Unremarkable Language: Adequate Fund of Knowledge: Inadequate Attention and Concentration: Adequate Memory: Impaired Mood: Appropriate Affect: Appropriate Thought Process & Associations: Intact, Loose associations Thought Content: Bizarre thinking Hallucination Type: None Delusion Type: None Suicidal Ideation: No Suicidal Plan: No Suicidal Intention: No Homicidal Ideation: No Homicidal Plan: No Homicidal Intention: No Insight: Poor Judgment: Poor Assessment and Plan - Assessment (1) Dementia Code(s): F03.90 - Unspecified dementia without behavioral disturbance Status: Acute - Plan Plan: Patient not having any behavioral disturbances, has become cooperative with the weekend and today, has been pleasant with staff. We will continue current treatment. We will continue to monitor mood and behavior. Discharge planning in progress. Justification for Continued Inpatient Stay: At risk for further decompensation if at lower level of care. (1) Dementia Qualifiers: Dementia type: unspecified type Dementia behavioral disturbance: with behavioral disturbance Qualified Code(s): F03.91 - Unspecified dementia with behavioral disturbance
--- NOTE | 2018-01-21 09:18 | P.PN ---
Subjective Interval history: Follow-up of patient with diabetes, dementia, hypothyroidism, anoxic brain injury. Patient seen and examined. Patient has evidence of nose bleed which he states he gets infrequently. He endorses sinus allergies. No active nasal bleeding. He denies any new medical complaints. He denies any chest pain or shortness of breath. He denies any N/V or abdominal pain. Physical Exam Vital signs: Vital Signs 01/20/18 17:47 01/21/18 06:08 Temperature 99.0 F 98.7 F Pulse Rate 83 78 Respiratory Rate 17 15 Blood Pressure 136/73 117/69 Pulse Oximetry 95 96 Intake & Output 01/20/18 01/21/18 01/21/18 18:59 06:59 18:59 Intake Total 2280 / 2280 1320 / 1320 Balance 2280 / 2280 1320 / 1320 Intake: Oral 2280 / 2280 1320 / 1320 Narrative: GENERAL: This is a thin well developed male patient, in no apparent distress. Awake and alert. SKIN: Warm and dry. 3x3cm nonfluctuant lesion with small punctate opening noted on left upper back, no e/o infection. Likely EIC. +psoriatic rash HEENT: Normocephalic. Pupils equal round and reactive. Sclera anicteric bilaterally. +dried blood right nare, no active bleeding noted. Airway patent. MMM. NECK: Trachea midline. CARDIOVASCULAR: Regular rate and rhythm. +Murmur. RESPIRATORY: Clear to auscultation. Breath sounds equal bilaterally. No wheezes , rales, or rhonchi. GASTROINTESTINAL: Abdomen soft, non-tender, nondistended. Bowel Sounds normoactive x4. MUSCULOSKELETAL: Extremities without clubbing, cyanosis. Bilateral lower extremity trace edema. NEUROLOGICAL: Awake and alert. Oriented to person. Confused. Moves all extremities spontaneously. Normal speech. PSYCHIATRIC: Calm and cooperative. Judgement and insight poor. Results - Labs CBC & Chem 7: 01/19/18 09:44 01/18/18 09:50 Laboratory Results - last 24 hr 01/20/18 01/20/18 01/20/18 12:03 16:33 20:19 POC Glucose 219 H 112 H 146 H 01/21/18 01/21/18 06:37 08:00 POC Glucose 162 H 114 H Assessment and Plan - Assessment (1) Acute kidney injury Code(s): N17.9 - Acute kidney failure, unspecified Status: Acute (2) EIC (epidermal inclusion cyst) Code(s): L72.0 - Epidermal cyst Status: Acute (3) Diabetes Code(s): E11.9 - Type 2 diabetes mellitus without complications Status: Acute (4) Psoriasis Code(s): L40.9 - Psoriasis, unspecified Status: Acute - Plan 62-year-old male with past medical history of DM 2, hypothyroidism, dementia, schizoaffective disorder, anoxic brain injury secondary to [place] who initially came into the hospital from cocaine under [facility] act. Patient has been combative with staff in his facility. He is admitted to medical psychiatry unit for further evaluation. Hospitalist consulted for assistance with medical management. Dementia, schizoaffective disorder Hx of anoxic brain injury -Managed by psychiatry team -On Aricept, Namenda DM 2 A1c 8.7 Blood sugars controlled -Continue accucheks and insulin sliding scale -Metformin discontinued 2/2 elevated creatinine -continue on Levemir 12 units BID -Monitor for hypoglycemia Debility, BLE weakness History of CVA -Continue home medications including Plavix -continue with PT -Will need PT in [place] Hypothyroidism -Continue levothyroxine Acute kidney injury on chronic kidney disease Possible ongoing chronic kidney disease secondary to diabetic nephropathy Baseline creatinine 1.1 -Avoid nephrotoxins. Encourage p.o. fluid intake. -creatinine trending down -Monitor kidney function as indicated Lesion left upper back, likely epidural inclusion cyst No evidence of infection -monitor -recommend outpatient follow up with PCP or dermatology Psoriasis -Apply calcipotriol cream BID DVT Prop ambulation, Heparin Patient appears stable from hospitalist standpoint. [facility] will sign off. Please reconsult if needed. Code Status: FULL Discussed Condition With: patient, nursing staff
--- NOTE | 2018-01-21 09:40 | P.DCO ---
- Diagnosis (4) Dementia - Physical Therapy Order: Evaluate and treat, Improve ambulation, Strength and gait training - Certification I have seen patient Al Ochoa on 01/21/18. My clinical findings support the need for the requested home health care services because: Deconditioned with increased weakness, Medication compliance is questionable, Limited ability to care for self, Impaired cognition/judgement, High risk of falls I certify that my clinical findings support that this patient is homebound because: Impaired cognitive ability/safety, Unsteady gait/balance, Unsafe to leave home unassisted, Unable to use public transportation (4) Dementia Qualifiers: Dementia type: unspecified type Dementia behavioral disturbance: with behavioral disturbance Qualified Code(s): F03.91 - Unspecified dementia with behavioral disturbance
[2018-01-21] MEDS: Senna/Docusate Sodium 8.6/50 MG Tablet PO SCH ×2 (09:51→20:52)
[2018-01-21] MEDS: Insulin Detemir Inj 1,000 UNIT/10 ML Vial SQ SCH ×2 (09:52→20:51)
[2018-01-21] MEDS: Insulin NovoLOG Aspart Correctional Sugar Inj SQ SCH ×4 (10:00→20:51)
[2018-01-21] MEDS: LORazepam 0.5 MG Tablet PO SCH ×3 (12:32→20:49)
--- NOTE | 2018-01-21 14:57 | P.PNPSY ---
Subjective Remarks: Patient seen for follow, chart reviewed. Discussion nursing staff reported the patient is compliant medications no episodes of agitation, has been pleasant with staff. Patient was found sitting in hospital bed noted B, cooperative. Patient states that his mood has been "good" reports feeling sore after having work with physical therapy this morning denying physical complaints at this time. Patient denies any perceptional service of delusions continues with baseline confusion. Review of Systems All other systems reviewed negative except as stated in HPI Mental Status Examination Appearance: Appropriate Consciousness: Alert Orientation: Person, Place Motor Activity: Normal gait Speech: Unremarkable Language: Adequate Fund of Knowledge: Inadequate Attention and Concentration: Adequate Memory: Impaired Mood: Appropriate Affect: Appropriate Thought Process & Associations: Intact, Loose associations Thought Content: Bizarre thinking Hallucination Type: None Delusion Type: None Suicidal Ideation: No Suicidal Plan: No Suicidal Intention: No Homicidal Ideation: No Homicidal Plan: No Homicidal Intention: No Insight: Poor Judgment: Poor Assessment and Plan - Assessment (1) Dementia Code(s): F03.90 - Unspecified dementia without behavioral disturbance Status: Acute - Plan Plan: Patient this time continues with baseline confusion, no aggressive behavior, no episodes of agitation has been calm and cooperative and pleasant with staff and compliant with medications. Patient to continue current treatment. Continue to monitor mood and behavior. Discharge planning a progress. Justification for Continued Inpatient Stay: At risk for further decompensation if at lower level of care. (1) Dementia Qualifiers: Dementia type: unspecified type Dementia behavioral disturbance: with behavioral disturbance Qualified Code(s): F03.91 - Unspecified dementia with behavioral disturbance
--- NOTE | 2018-01-21 15:47 | P.TTN ---
- Patient Problems Problems: 1. Discharge planning 2. Medication compliance 3. Knowledge deficit 4. Lack of coping skills - Progress Toward Goals Provider Present: Dr. Taran Serrano Provider Input: Facility to meet with pt for placement Nurse(s) Present: Murray Ceolho Input: Pt is better, not screaming today, A and O X1, cognitive deficits, seclusive, medication compliant, better sleep. Psychiatric Counselors Present: Randa Burk LCSW, Geovanny Narayanan Jr., [facility], Shey Burgess, [facility], Other Psychiatric Therapist Input: Pt had an outburst last week Group Spec/RT/OT/REYES Present: ERIC Benavidez Group Spec/RT/OT/REYES Input: Pt participates in on unit groups with assistance - Documentation Teaching Recipient: Patient
[2018-01-21] MEDS: Levothyroxine 88 MCG Tablet PO SCH (20:50)
[2018-01-22] MEDS: LORazepam 0.5 MG Tablet PO SCH ×6 (00:05→23:38)
[2018-01-22] MEDS: Levothyroxine 88 MCG Tablet PO SCH (06:46)
[2018-01-22] MEDS: Insulin Detemir Inj 1,000 UNIT/10 ML Vial SQ SCH ×2 (08:37→21:36)
[2018-01-22] MEDS: Senna/Docusate Sodium 8.6/50 MG Tablet PO SCH ×2 (08:38→20:52)
--- NOTE | 2018-01-22 10:40 | P.PNPSY ---
Subjective Remarks: Patient seen for follow, chart reviewed. Discussion nursing staff reported the patient is polite, pleasant, slept well, compliant with medications, no behavioral issues. Patient was found lying hospital bed noted B, cooperative. Patient state he is feeling "fine" denying any physical complaints at this time denying perceptual services or delusions but continues with baseline confusion. Patient states feeling "sore" from exercise. Patient after interview was working with physical therapy. Patient as per treatment team medication with previous skilled facility stated that they will not accept him back to the facility stated that he is inappropriate to return. Review of Systems All other systems reviewed negative except as stated in HPI Mental Status Examination Appearance: Appropriate Consciousness: Alert Orientation: Person, Place Motor Activity: Normal gait Speech: Unremarkable Language: Adequate Fund of Knowledge: Inadequate Attention and Concentration: Adequate Memory: Impaired Mood: Appropriate Affect: Appropriate Thought Process & Associations: Intact, Loose associations Thought Content: Bizarre thinking Hallucination Type: None Delusion Type: None Suicidal Ideation: No Suicidal Plan: No Suicidal Intention: No Homicidal Ideation: No Homicidal Plan: No Homicidal Intention: No Insight: Poor Judgment: Poor Assessment and Plan - Assessment (1) Dementia Code(s): F03.90 - Unspecified dementia without behavioral disturbance Status: Acute - Plan Plan: Patient continues with baseline confusion, B, cooperative with staff, no behavioral issues, no episodes of agitation. Patient has been calm and pleasant and compliant with medications. We will continue current treatment. We will continue to monitor mood and behavior. Patient may not return back to previous SNF and will require referral to a different facility. Discharge planning in progress. Justification for Continued Inpatient Stay: At risk for further decompensation if at lower level of care. (1) Dementia Qualifiers: Dementia type: unspecified type Dementia behavioral disturbance: with behavioral disturbance Qualified Code(s): F03.91 - Unspecified dementia with behavioral disturbance
[2018-01-22] MEDS: Insulin NovoLOG Aspart Correctional Sugar Inj SQ SCH ×4 (10:46→21:37)
--- NOTE | 2018-01-22 11:05 | P.TTN ---
- Patient Problems Problems: 1. Discharge planning 2. Medication compliance 3. Knowledge deficit 4. Lack of coping skills - Progress Toward Goals Provider Present: Dr. Taran Serrano Provider Input: Facility to meet with pt for placement. 01/22/18: Per , goal for pt is return to [facility], her prior living environment. Update per 11: 00am from [facility] refusing to accept placement, Shey to complete [id number] and seek alternative placement. Nurse(s) Present: Murray Coelho Input: Pt is better, not screaming today, A and O X1, cognitive deficits, seclusive, medication compliant, better sleep. 01/22/18: Per Lupis, RN; Pt is compliant with medications, no behaviors noted. Psychiatric Counselors Present: Randa Burk LCSW, Geovanny Narayanan Jr., [facility], Shey Burgess, [facility], Other Psychiatric Therapist Input: Pt had an outburst last week. 01/22/18: Shey to f /u with previous living situation ([facility]) for pt to return. Group Spec/RT/OT/REYES Present: June Santiago, JENNY, ERIC Benavidez, Jorge Angel, OT Group Spec/RT/OT/REYES Input: Pt participates in on unit groups with assistance. 01/22/18: Pt participate on unit in groups, requires encouragement. - Documentation Scribe: Jorge Angel, MS, OTR Teaching Recipient: Patient
[2018-01-22] MEDS: Acetaminophen 325 MG Tablet PO PRN (21:41)
[2018-01-23] MEDS: LORazepam 0.5 MG Tablet PO SCH ×3 (05:47→17:47)
[2018-01-23] MEDS: Levothyroxine 88 MCG Tablet PO SCH (05:47)
[2018-01-23] MEDS: Insulin NovoLOG Aspart Correctional Sugar Inj SQ SCH ×4 (08:35→21:37)
[2018-01-23] MEDS: Senna/Docusate Sodium 8.6/50 MG Tablet PO SCH ×2 (08:35→20:44)
[2018-01-23] MEDS: Insulin Detemir Inj 1,000 UNIT/10 ML Vial SQ SCH ×2 (12:27→21:30)
[2018-01-23] MEDS: Acetaminophen 325 MG Tablet PO PRN ×2 (15:08→20:43)
--- NOTE | 2018-01-23 17:16 | P.PNPSY ---
Subjective Remarks: Reviewed electronic medical record and discussed case with staff. They report that he remains focused on his . Patient reports that he slept "pretty good " and has a good appetite. He complains that he's a "little sore" due to his psoriasis. Mental Status Examination Appearance: Appropriate Consciousness: Alert Orientation: Person, Place Motor Activity: Normal gait Speech: Unremarkable Language: Adequate Fund of Knowledge: Inadequate Attention and Concentration: Adequate Memory: Impaired Mood: Appropriate Affect: Appropriate Thought Process & Associations: Intact, Loose associations Thought Content: Bizarre thinking Hallucination Type: None Delusion Type: None Suicidal Ideation: No Suicidal Plan: No Suicidal Intention: No Homicidal Ideation: No Homicidal Plan: No Homicidal Intention: No Insight: Poor Judgment: Poor Assessment and Plan - Plan Plan: Continue with current treatment plan. Discharge planning is in progress. Justification for Continued Inpatient Stay: Moving patient to a less restrictive unit would result in decompensation.
[2018-01-24] MEDS: LORazepam 0.5 MG Tablet PO SCH ×4 (00:41→18:16)
[2018-01-24] MEDS: Levothyroxine 88 MCG Tablet PO SCH (05:41)
[2018-01-24] MEDS: Acetaminophen 325 MG Tablet PO PRN (05:47)
[2018-01-24] MEDS: Insulin NovoLOG Aspart Correctional Sugar Inj SQ SCH ×4 (09:10→20:58)
[2018-01-24] MEDS: Senna/Docusate Sodium 8.6/50 MG Tablet PO SCH ×2 (09:11→20:56)
[2018-01-24] MEDS: Insulin Detemir Inj 1,000 UNIT/10 ML Vial SQ SCH ×2 (09:13→20:58)
--- NOTE | 2018-01-24 18:15 | P.PNPSY ---
Subjective Remarks: Reviewed electronic medical record, labs, and discussed case with staff. Follow up is conducted in the patient's room. He was observed prior to this in the [facility] talking on the phone with his . He reports that she is coming to visit and that his mood is improved because of this. He reports that he has had difficulty sleeping. He reports that his appetite has been good and denies any side effects from medications. Mental Status Examination Appearance: Appropriate Consciousness: Alert Orientation: Person, Place Motor Activity: Normal gait Speech: Unremarkable Language: Adequate Fund of Knowledge: Inadequate Attention and Concentration: Adequate Memory: Impaired Mood: Appropriate Affect: Appropriate Thought Process & Associations: Intact, Loose associations Thought Content: Bizarre thinking Hallucination Type: None Delusion Type: None Suicidal Ideation: No Suicidal Plan: No Suicidal Intention: No Homicidal Ideation: No Homicidal Plan: No Homicidal Intention: No Insight: Poor Judgment: Poor Assessment and Plan - Plan Plan: Continue with current treatment plan. Discharge planning is in progress. Justification for Continued Inpatient Stay: Moving this patient to a less restrictive level of care would likely result in decompensation.
--- NOTE | 2018-01-24 18:18 | P.PNPSY ---
Subjective Remarks: see other note Mental Status Examination Appearance: Appropriate Consciousness: Alert Orientation: Person, Place Motor Activity: Normal gait Speech: Unremarkable Language: Adequate Fund of Knowledge: Inadequate Attention and Concentration: Adequate Memory: Impaired Mood: Appropriate Affect: Appropriate Thought Process & Associations: Intact, Loose associations Thought Content: Bizarre thinking Hallucination Type: None Delusion Type: None Suicidal Ideation: No Suicidal Plan: No Suicidal Intention: No Homicidal Ideation: No Homicidal Plan: No Homicidal Intention: No Insight: Poor Judgment: Poor Assessment and Plan - Assessment (1) Dementia Code(s): F03.90 - Unspecified dementia without behavioral disturbance Status: Acute - Plan Plan: see other note Justification for Continued Inpatient Stay: see other note (1) Dementia Qualifiers: Dementia type: unspecified type Dementia behavioral disturbance: with behavioral disturbance Qualified Code(s): F03.91 - Unspecified dementia with behavioral disturbance
[2018-01-25] MEDS: LORazepam 0.5 MG Tablet PO SCH ×5 (04:25→23:11)
[2018-01-25] MEDS: Levothyroxine 88 MCG Tablet PO SCH (05:31)
[2018-01-25] MEDS: Insulin NovoLOG Aspart Correctional Sugar Inj SQ SCH ×4 (08:04→20:04)
[2018-01-25] MEDS: Insulin Detemir Inj 1,000 UNIT/10 ML Vial SQ SCH ×2 (08:09→21:16)
[2018-01-25] MEDS: Senna/Docusate Sodium 8.6/50 MG Tablet PO SCH ×2 (08:12→20:39)
--- NOTE | 2018-01-25 08:38 | P.PNPSY ---
Subjective Remarks: Patient seen in his room with nurse Sandy, chart reviewed, patient compliant medication. Patient overall calm cooperative with me denies suicidality voices or visions at the present time. Review of records shows patient has not had his Depakote blood level checked in almost 2 weeks we will recheck Depakote blood level in the a.m. Otherwise for now continue treatment Review of Systems All other systems reviewed negative except as stated in HPI Mental Status Examination Appearance: Appropriate Consciousness: Alert Orientation: Person, Place Motor Activity: Normal gait Speech: Unremarkable Language: Adequate Fund of Knowledge: Inadequate Attention and Concentration: Adequate Memory: Impaired Mood: Appropriate Affect: Appropriate Thought Process & Associations: Intact, Loose associations Thought Content: Bizarre thinking Hallucination Type: None Delusion Type: None Suicidal Ideation: No Suicidal Plan: No Suicidal Intention: No Homicidal Ideation: No Homicidal Plan: No Homicidal Intention: No Insight: Poor Judgment: Poor Assessment and Plan - Assessment (1) Dementia Code(s): F03.90 - Unspecified dementia without behavioral disturbance Status: Acute - Plan Plan: Patient calm cooperative with me compliant medications we will recheck Depakote blood level over in a.m. Patient continues confused and somewhat disoriented though no behavior problems at this time Justification for Continued Inpatient Stay: At this time patient would decompensate if not placed in an appropriate level of care Discharge Planning: To be determined (1) Dementia Qualifiers: Dementia type: Alzheimer's disease Alzheimer's disease onset: early-onset Dementia behavioral disturbance: with behavioral disturbance Qualified Code(s) : G30.0 - Alzheimer's disease with early onset; F02.81 - Dementia in other diseases classified elsewhere with behavioral disturbance
[2018-01-25] MEDS: Aluminum/Magnesium/Simethacone Susp 30 ML UDC PO PRN (13:35)
[2018-01-26] MEDS: LORazepam 0.5 MG Tablet PO SCH ×3 (05:03→17:04)
[2018-01-26] MEDS: Levothyroxine 88 MCG Tablet PO SCH (05:03)
[2018-01-26] MEDS: Insulin NovoLOG Aspart Correctional Sugar Inj SQ SCH ×4 (07:24→21:22)
[2018-01-26] MEDS: Senna/Docusate Sodium 8.6/50 MG Tablet PO SCH ×2 (09:37→21:19)
[2018-01-26] MEDS: Insulin Detemir Inj 1,000 UNIT/10 ML Vial SQ SCH ×2 (09:38→21:19)
[2018-01-27] MEDS: LORazepam 0.5 MG Tablet PO SCH ×4 (04:11→17:24)
[2018-01-27] MEDS: Levothyroxine 88 MCG Tablet PO SCH (05:39)
--- NOTE | 2018-01-27 08:38 | P.PNPSY ---
Subjective Remarks: Please note this is a late entry from 01/26/18. Reviewed electronic medical records and discussed case with staff. Follow-up was conducted in the patient' s room. Patient reports that he has not been sleeping very well. He states that he has had difficulty falling asleep. He reports that he has had a good appetite. He remains anxious about calling his . He approaches the nurses station approximately 5-10 minutes requesting to call his . Mental Status Examination Appearance: Appropriate Consciousness: Alert Orientation: Person, Place Motor Activity: Normal gait Speech: Unremarkable Language: Adequate Fund of Knowledge: Inadequate Attention and Concentration: Adequate Memory: Impaired Mood: Appropriate Affect: Appropriate Thought Process & Associations: Intact, Loose associations Thought Content: Bizarre thinking Hallucination Type: None Delusion Type: None Suicidal Ideation: No Suicidal Plan: No Suicidal Intention: No Homicidal Ideation: No Homicidal Plan: No Homicidal Intention: No Insight: Poor Judgment: Poor Assessment and Plan - Assessment (1) Dementia Code(s): F03.90 - Unspecified dementia without behavioral disturbance Status: Acute - Plan Plan: Patient will be reevaluated tomorrow by the attending psychiatrist. Continue with current treatment plan. Justification for Continued Inpatient Stay: Moving this patient to a less restrictive environment would likely result in decompensation. (1) Dementia Qualifiers: Dementia type: Alzheimer's disease Alzheimer's disease onset: early-onset Dementia behavioral disturbance: with behavioral disturbance Qualified Code(s) : G30.0 - Alzheimer's disease with early onset; F02.81 - Dementia in other diseases classified elsewhere with behavioral disturbance
[2018-01-27] MEDS: Senna/Docusate Sodium 8.6/50 MG Tablet PO SCH ×2 (08:47→21:00)
[2018-01-27] MEDS: Insulin NovoLOG Aspart Correctional Sugar Inj SQ SCH ×4 (08:48→22:21)
[2018-01-27] MEDS: Insulin Detemir Inj 1,000 UNIT/10 ML Vial SQ SCH ×2 (08:49→22:21)
--- NOTE | 2018-01-27 12:53 | P.PNPSY ---
Subjective Remarks: Reviewed electronic medical records and discussed case with staff. Follow-up was conducted in the patient's room. He was found sitting in a chair. Is observed earlier in the hallway requesting to call his no less than 5 times. He reports that he sleeping well and he has a good appetite. He did acknowledge that he spoke with his but he reports that she told him she is "too sore to come get him". He remains discharge focused. His mood is labile between pleasant and tearful over missing his . Mental Status Examination Appearance: Appropriate Consciousness: Alert Orientation: Person, Place Motor Activity: Normal gait Speech: Unremarkable Language: Adequate Fund of Knowledge: Inadequate Attention and Concentration: Adequate Memory: Impaired Mood: Appropriate Affect: Appropriate Thought Process & Associations: Intact, Loose associations Thought Content: Bizarre thinking Hallucination Type: None Delusion Type: None Suicidal Ideation: No Suicidal Plan: No Suicidal Intention: No Homicidal Ideation: No Homicidal Plan: No Homicidal Intention: No Insight: Poor Judgment: Poor Assessment and Plan - Assessment (1) Dementia Code(s): F03.90 - Unspecified dementia without behavioral disturbance Status: Acute - Plan Plan: Patient will be reevaluated tomorrow by the attending psychiatrist. Continue with current treatment plan. Justification for Continued Inpatient Stay: Moving this patient to a less restrictive environment would likely result in decompensation. (1) Dementia Qualifiers: Dementia type: Alzheimer's disease Alzheimer's disease onset: early-onset Dementia behavioral disturbance: with behavioral disturbance Qualified Code(s) : G30.0 - Alzheimer's disease with early onset; F02.81 - Dementia in other diseases classified elsewhere with behavioral disturbance
[2018-01-28] MEDS: LORazepam 0.5 MG Tablet PO SCH ×4 (00:15→17:22)
[2018-01-28] MEDS: Levothyroxine 88 MCG Tablet PO SCH (06:13)
[2018-01-28] MEDS: Insulin NovoLOG Aspart Correctional Sugar Inj SQ SCH ×4 (09:23→21:05)
[2018-01-28] MEDS: Insulin Detemir Inj 1,000 UNIT/10 ML Vial SQ SCH ×2 (09:25→21:59)
[2018-01-28] MEDS: Senna/Docusate Sodium 8.6/50 MG Tablet PO SCH ×2 (09:27→21:05)
--- NOTE | 2018-01-28 09:32 | P.PNPSY ---
Subjective Remarks: Patient seen for follow, chart reviewed. Discussion nursing staff reported the patient continues to be confused at baseline, slept well with no behavioral disturbances. Patient was found lying hospital bed noted with bright affect smiling during interview stating he is feeling "good" denying any physical complaints at this time, reports eating and drinking well with no difficulty with bowel movement. Patient denies any depressed mood, denies any psychotic symptoms, any perceptional disturbances or delusions, patient is oriented to person and place only. Review of Systems All other systems reviewed negative except as stated in HPI Mental Status Examination Appearance: Appropriate Consciousness: Alert Orientation: Person, Place Motor Activity: Normal gait Speech: Unremarkable Language: Adequate Fund of Knowledge: Inadequate Attention and Concentration: Adequate Memory: Impaired Mood: Appropriate Affect: Appropriate Thought Process & Associations: Intact, Loose associations Thought Content: Appropriate Hallucination Type: None Delusion Type: None Suicidal Ideation: No Suicidal Plan: No Suicidal Intention: No Homicidal Ideation: No Homicidal Plan: No Homicidal Intention: No Insight: Poor Judgment: Poor Assessment and Plan - Assessment (1) Dementia Code(s): F03.90 - Unspecified dementia without behavioral disturbance Status: Acute - Plan Plan: Patient continues with baseline confusion, no behavioral services, pleasant, cooperative with staff, compliant with treatment. Continue current treatment. Treatment he will continue to search for referral to an appropriate residential facility with adequate services to meet his needs. Discharge planning a progress. Justification for Continued Inpatient Stay: At risk of further decompensation a lower level of care. (1) Dementia Qualifiers: Dementia type: Alzheimer's disease Alzheimer's disease onset: early-onset Dementia behavioral disturbance: with behavioral disturbance Qualified Code(s) : G30.0 - Alzheimer's disease with early onset; F02.81 - Dementia in other diseases classified elsewhere with behavioral disturbance
[2018-01-29] MEDS: LORazepam 0.5 MG Tablet PO SCH ×4 (01:53→17:39)
[2018-01-29] MEDS: Levothyroxine 88 MCG Tablet PO SCH (05:57)
[2018-01-29] MEDS: Senna/Docusate Sodium 8.6/50 MG Tablet PO SCH ×2 (09:27→21:00)
--- NOTE | 2018-01-29 09:49 | P.TTN ---
- Patient Problems Problems: 1. Discharge planning 2. Medication compliance 3. Knowledge deficit 4. Lack of coping skills - Progress Toward Goals Provider Present: Dr. Taran Serrano Provider Input: 01/29/2018; patient has no reported mood or behavior concerns, stable on current med dosage. 01/28/2018; patient has some mood shift, however he is stable and compliant with medication and treatment no needed adjustment or changes required. Facility to meet with pt for placement. 01/22/18: Per MD, goal for pt is return to [facility], her prior living environment. Update per 11:00am from [facility] refusing to accept placement, Shey to complete [id number] and seek alternative placement. Nurse(s) Present: OBDULIA Arnold Nurse Input: 01/29/2018; patient is eating meals and taking his medications; has a lack of impluse control, but no real behavior concerns. 01/28/2018; patient has no behavior issues outside of lack of impluse, and at times somewhat intrusive with demands. Patient is eating and taking his medication, requires redirection, anc prompting at times. Pt is better, not screaming today , A and O X1, cognitive deficits, seclusive, medication compliant, better sleep. 01/22/18: Per OBDULIA Baugh; Pt is compliant with medications, no behaviors noted. Psychiatric Counselors Present: Shey Burgess [facility] Psychiatric Therapist Input: 01/29/2018; counselor continues to fax [facility] skill correction providers, [facility] has accepted patient however his have refused to accept placement with this provider. Counselor have staff this case with supervisors (Jacqueline Morales and Chrissy Ochoa to request assistance). 01/28/2018; counselor continues to fax packages to [facility] skill nursing providers, several nursing homes have denied patient due to reported history of behavior. Pt had an outburst last week. 01/22/18: Shey to f/u with previous living situation ([facility]) for pt to return. Group Spec/RT/OT/REYES Present: JENNY Genao Group Spec/RT/OT/REYES Input: 01/29/2018; per RT patient has been unwilling to participate with groups or activities. 01/28/2018; patient has been unwillng to participate with groups. Pt participates in on unit groups with assistance. 01/22/18: Pt participate on unit in groups, requires encouragement. - Documentation Scribe: Jorge Angel MS, OTR Teaching Recipient: Patient
[2018-01-29] MEDS: Insulin Detemir Inj 1,000 UNIT/10 ML Vial SQ SCH ×2 (13:41→21:38)
[2018-01-29] MEDS: Insulin NovoLOG Aspart Correctional Sugar Inj SQ SCH ×4 (13:41→21:39)
--- NOTE | 2018-01-29 16:19 | P.PNPSY ---
Subjective Remarks: Patient seen for follow up, chart reviewed. Discussion nursing staff reported continues with baseline confusion, no behavioral issues. Patient was found ambulating on the unit, asking to call his several times. He reports feeling "alright" denies any physical complaints, noted to be ambulating with walker steadily. He denies any perceptual disturbances, no delusions but continues with baseline confusion. Review of Systems All other systems reviewed negative except as stated in HPI Mental Status Examination Appearance: Appropriate Consciousness: Alert Orientation: Person, Place Motor Activity: Normal gait Speech: Unremarkable Language: Adequate Fund of Knowledge: Inadequate Attention and Concentration: Adequate Memory: Impaired Mood: Appropriate Affect: Appropriate Thought Process & Associations: Intact, Loose associations Thought Content: Appropriate Hallucination Type: None Delusion Type: None Suicidal Ideation: No Suicidal Plan: No Suicidal Intention: No Homicidal Ideation: No Homicidal Plan: No Homicidal Intention: No Insight: Poor Judgment: Poor Assessment and Plan - Assessment (1) Dementia Code(s): F03.90 - Unspecified dementia without behavioral disturbance Status: Acute - Plan Plan: Patient with good behavioral control, perseverative on calling his but redirectible. Continues with baseline confusion. Continue current treatment, continue to monitor mood and behavior. Patient will present to mental health court tomorrow. Discharge planning in progress. Justification for Continued Inpatient Stay: At risk for further decompensation at lower level of care. (1) Dementia Qualifiers: Dementia type: Alzheimer's disease Alzheimer's disease onset: early-onset Dementia behavioral disturbance: with behavioral disturbance Qualified Code(s) : G30.0 - Alzheimer's disease with early onset; F02.81 - Dementia in other diseases classified elsewhere with behavioral disturbance
[2018-01-30] MEDS: LORazepam 0.5 MG Tablet PO SCH ×4 (00:45→17:29)
[2018-01-30] MEDS: Levothyroxine 88 MCG Tablet PO SCH (06:15)
[2018-01-30] MEDS: Senna/Docusate Sodium 8.6/50 MG Tablet PO SCH ×2 (08:12→21:50)
[2018-01-30] MEDS: Insulin Detemir Inj 1,000 UNIT/10 ML Vial SQ SCH ×3 (08:13→21:51)
[2018-01-30] MEDS: Insulin NovoLOG Aspart Correctional Sugar Inj SQ SCH ×4 (08:16→22:20)
--- NOTE | 2018-01-30 10:13 | P.PNPSY ---
Subjective Remarks: Patient seen for follow, chart reviewed. Discussion nursing staff reported no behavioral issues, patient compliant with medication continues with confusion at baseline. Patient was presented to mental health court which logistical engineer had ruled a continuance for his current hospitalization with plan patient was discharged to currently accepting facility which coordination with to be finalized. Patient reports feeling "good" denying any physical complaints, denies any perceptional disturbances or delusions but continues with baseline confusion secondary to neurocognitive deficits. Patient continues with adequate behavioral control with no episodes of agitation or aggression. Review of Systems All other systems reviewed negative except as stated in HPI Mental Status Examination Appearance: Appropriate Consciousness: Alert Orientation: Person, Place Motor Activity: Normal gait Speech: Unremarkable Language: Adequate Fund of Knowledge: Inadequate Attention and Concentration: Adequate Memory: Impaired Mood: Appropriate Affect: Appropriate Thought Process & Associations: Intact, Loose associations Thought Content: Appropriate Hallucination Type: None Delusion Type: None Suicidal Ideation: No Suicidal Plan: No Suicidal Intention: No Homicidal Ideation: No Homicidal Plan: No Homicidal Intention: No Insight: Poor Judgment: Impulsive Assessment and Plan - Assessment (1) Dementia Code(s): F03.90 - Unspecified dementia without behavioral disturbance Status: Acute - Plan Plan: Patient continues with good behavioral control, continues with baseline confusion, no episodes of agitation or aggression. Continue pleasant and cooperative with staff. We will continue current treatment. We will continue to monitor mood and behavior. Treatment team currently arranging for appropriate discharge planning and disposition with . Discharge planning in progress. Justification for Continued Inpatient Stay: At risk of further decompensation a lower level of care. (1) Dementia Qualifiers: Dementia type: Alzheimer's disease Alzheimer's disease onset: early-onset Dementia behavioral disturbance: with behavioral disturbance Qualified Code(s) : G30.0 - Alzheimer's disease with early onset; F02.81 - Dementia in other diseases classified elsewhere with behavioral disturbance
[2018-01-31] MEDS: LORazepam 0.5 MG Tablet PO SCH ×5 (04:27→23:10)
[2018-01-31] MEDS: Levothyroxine 88 MCG Tablet PO SCH (05:44)
[2018-01-31] MEDS: Acetaminophen 325 MG Tablet PO PRN ×2 (05:52→21:48)
[2018-01-31] MEDS: Senna/Docusate Sodium 8.6/50 MG Tablet PO SCH ×2 (08:45→20:22)
[2018-01-31] MEDS: Insulin NovoLOG Aspart Correctional Sugar Inj SQ SCH ×4 (09:10→20:50)
[2018-01-31] MEDS: Insulin Detemir Inj 1,000 UNIT/10 ML Vial SQ SCH ×2 (09:11→21:41)
--- NOTE | 2018-01-31 11:49 | P.PNPSY ---
Subjective Remarks: Patient seen for follow, chart reviewed. Discussion nursing staff reported the patient with no behavioral issues, compliant with medication and pleasant. Patient was found heavily on unit noted B, cooperative. Patient states that he is feeling "sore" after work with physical therapy, reports eating and drinking well, mood has been "good" denies feeling depressed, denying any perceptional services or delusions, denies any suicidal homicidal ideations. Patient continues with baseline confusion. Review of Systems All other systems reviewed negative except as stated in HPI Mental Status Examination Appearance: Appropriate Consciousness: Alert Orientation: Person, Place Motor Activity: Normal gait Speech: Unremarkable Language: Adequate Fund of Knowledge: Inadequate Attention and Concentration: Adequate Memory: Impaired Mood: Appropriate Affect: Appropriate Thought Process & Associations: Intact, Loose associations Thought Content: Appropriate Hallucination Type: None Delusion Type: None Suicidal Ideation: No Suicidal Plan: No Suicidal Intention: No Homicidal Ideation: No Homicidal Plan: No Homicidal Intention: No Insight: Poor Judgment: Poor Assessment and Plan - Assessment (1) Dementia Code(s): F03.90 - Unspecified dementia without behavioral disturbance Status: Acute - Plan Plan: Patient continues with baseline confusion, no episodes of agitation, no irritability, is a pleasant and calm with staff and compliant with treatment. We will patient to continue current treatment. Continue to work with physical therapy. We will continue to monitor mood and behavior. Discharge planning in progress. Justification for Continued Inpatient Stay: At risk of further decompensation a lower level care. (1) Dementia Qualifiers: Dementia type: Alzheimer's disease Alzheimer's disease onset: early-onset Dementia behavioral disturbance: with behavioral disturbance Qualified Code(s) : G30.0 - Alzheimer's disease with early onset; F02.81 - Dementia in other diseases classified elsewhere with behavioral disturbance
[2018-02-01] MEDS: Levothyroxine 88 MCG Tablet PO SCH (05:16)
[2018-02-01] MEDS: LORazepam 0.5 MG Tablet PO SCH ×4 (05:16→23:12)
[2018-02-01] MEDS: Insulin NovoLOG Aspart Correctional Sugar Inj SQ SCH ×4 (08:07→21:08)
[2018-02-01] MEDS: Senna/Docusate Sodium 8.6/50 MG Tablet PO SCH ×2 (08:08→21:03)
[2018-02-01] MEDS: Insulin Detemir Inj 1,000 UNIT/10 ML Vial SQ SCH ×2 (08:08→21:09)
--- NOTE | 2018-02-01 16:20 | P.PNPSY ---
Subjective Remarks: Patient seen for follow up; chart reviewed. Discussion with nursing staff reported that patient with no behavioral issues, continue to be forgetful. Patient was found heavily on unit is Chavo noted be good spirits. Patient continued with baseline confusion. Denying any physical complaints reporting his mood as being "good". Denying any physical complaints, denying any perceptional disturbances or delusions at this time. Review of Systems All other systems reviewed negative except as stated in HPI Mental Status Examination Appearance: Appropriate Consciousness: Alert Orientation: Person, Place Motor Activity: Normal gait Speech: Unremarkable Language: Adequate Fund of Knowledge: Inadequate Attention and Concentration: Adequate Memory: Impaired Mood: Appropriate Affect: Appropriate Thought Process & Associations: Intact, Loose associations Thought Content: Appropriate Hallucination Type: None Delusion Type: None Suicidal Ideation: No Suicidal Plan: No Suicidal Intention: No Homicidal Ideation: No Homicidal Plan: No Homicidal Intention: No Insight: Poor Judgment: Poor Assessment and Plan - Assessment (1) Dementia Code(s): F03.90 - Unspecified dementia without behavioral disturbance Status: Acute - Plan Plan: Patient continues with good behavioral control with no episodes of agitation, has been calm and pleasant with staff. Continue current treatment. Continue to monitor mood and behavior. Discharge planning a progress. Justification for Continued Inpatient Stay: At risk of further decompensation a lower level of care. (1) Dementia Qualifiers: Dementia type: Alzheimer's disease Alzheimer's disease onset: early-onset Dementia behavioral disturbance: with behavioral disturbance Qualified Code(s) : G30.0 - Alzheimer's disease with early onset; F02.81 - Dementia in other diseases classified elsewhere with behavioral disturbance
[2018-02-02] MEDS: LORazepam 0.5 MG Tablet PO SCH ×3 (05:07→17:49)
[2018-02-02] MEDS: Levothyroxine 88 MCG Tablet PO SCH (05:07)
[2018-02-02] MEDS: Insulin Detemir Inj 1,000 UNIT/10 ML Vial SQ SCH ×2 (08:02→21:45)
[2018-02-02] MEDS: Insulin NovoLOG Aspart Correctional Sugar Inj SQ SCH ×4 (08:02→21:44)
[2018-02-02] MEDS: Senna/Docusate Sodium 8.6/50 MG Tablet PO SCH ×2 (08:03→21:44)
--- NOTE | 2018-02-02 16:24 | P.PNPSY ---
Subjective Remarks: Patient seen for follow-up, chart reviewed. Discussion with nursing staff reported the patient patient asking to call throughout the day continues with baseline confusion. Patient was found family on the unit noted B, cooperative. Patient state he is feeling "good" reports feeling sore from working with physical therapy but denies any other physical complaints. Patient reports feeling good denies any perceptional services or delusions. Patient with good behavioral control and no episodes of agitation or behavioral dyscontrol. Review of Systems All other systems reviewed negative except as stated in HPI Mental Status Examination Appearance: Appropriate Consciousness: Alert Orientation: Person, Place Motor Activity: Normal gait Speech: Unremarkable Language: Adequate Fund of Knowledge: Inadequate Attention and Concentration: Adequate Memory: Impaired Mood: Appropriate Affect: Appropriate Thought Process & Associations: Intact, Loose associations Thought Content: Appropriate Hallucination Type: None Delusion Type: None Suicidal Ideation: No Suicidal Plan: No Suicidal Intention: No Homicidal Ideation: No Homicidal Plan: No Homicidal Intention: No Insight: Poor Judgment: Poor Assessment and Plan - Assessment (1) Dementia Code(s): F03.90 - Unspecified dementia without behavioral disturbance Status: Acute - Plan Plan: Patient continues to be perseverative at times with attempted to call his despite him having spoken with her several times a day but is forgetful as to if he spoken with her. Patient continues to require redirection at times but no behavioral disturbances has been compliant with treatment. Continue to monitor mood and behavior. Discharge planning in progress. Justification for Continued Inpatient Stay: At risk of further decompensation a lower level of care. (1) Dementia Qualifiers: Dementia type: Alzheimer's disease Alzheimer's disease onset: early-onset Dementia behavioral disturbance: with behavioral disturbance Qualified Code(s) : G30.0 - Alzheimer's disease with early onset; F02.81 - Dementia in other diseases classified elsewhere with behavioral disturbance
[2018-02-03] MEDS: LORazepam 0.5 MG Tablet PO SCH ×4 (00:52→18:31)
[2018-02-03] MEDS: Levothyroxine 88 MCG Tablet PO SCH (05:41)
[2018-02-03] MEDS: Senna/Docusate Sodium 8.6/50 MG Tablet PO SCH ×2 (08:55→20:21)
[2018-02-03] MEDS: Insulin Detemir Inj 1,000 UNIT/10 ML Vial SQ SCH ×2 (08:59→20:21)
[2018-02-03] MEDS: Insulin NovoLOG Aspart Correctional Sugar Inj SQ SCH ×4 (09:07→20:22)
--- NOTE | 2018-02-03 16:48 | P.PNPSY ---
Subjective Remarks: Patient seen for follow, chart reviewed. Discussion nursing staff reported the patient with no behavioral issues, no behavioral changes. Patient was found lying hospital bed noted B, cooperative. Patient states that he enjoys watching television specifically football. Patient continues with baseline confusion and requesting to speak with his over the phone. Patient reports eating and drinking well without difficulty or bowel movement. Denies any perceptional services or delusions. Review of Systems All other systems reviewed negative except as stated in HPI Mental Status Examination Appearance: Appropriate Consciousness: Alert Orientation: Person, Place Motor Activity: Normal gait Speech: Unremarkable Language: Adequate Fund of Knowledge: Inadequate Attention and Concentration: Adequate Memory: Impaired Mood: Appropriate Affect: Appropriate Thought Process & Associations: Intact, Loose associations Thought Content: Appropriate Hallucination Type: None Delusion Type: None Suicidal Ideation: No Suicidal Plan: No Suicidal Intention: No Homicidal Ideation: No Homicidal Plan: No Homicidal Intention: No Insight: Poor Judgment: Poor Assessment and Plan - Assessment (1) Dementia Code(s): F03.90 - Unspecified dementia without behavioral disturbance Status: Acute - Plan Plan: Patient continues with good behavioral control, has a compliant with treatment and is working with physical therapy. We will continue current treatment. We will continue to monitor mood and behavior. Discharge planning a progress. Justification for Continued Inpatient Stay: At risk of further decompensation a lower level of care. (1) Dementia Qualifiers: Dementia type: Alzheimer's disease Alzheimer's disease onset: early-onset Dementia behavioral disturbance: with behavioral disturbance Qualified Code(s) : G30.0 - Alzheimer's disease with early onset; F02.81 - Dementia in other diseases classified elsewhere with behavioral disturbance
[2018-02-04] MEDS: LORazepam 0.5 MG Tablet PO SCH ×4 (00:16→18:25)
[2018-02-04] MEDS: Levothyroxine 88 MCG Tablet PO SCH (06:08)
[2018-02-04] MEDS: Acetaminophen 325 MG Tablet PO PRN (06:19)
[2018-02-04] MEDS: Senna/Docusate Sodium 8.6/50 MG Tablet PO SCH ×2 (09:12→22:03)
[2018-02-04] MEDS: Insulin NovoLOG Aspart Correctional Sugar Inj SQ SCH ×4 (09:15→22:05)
[2018-02-04] MEDS: Insulin Detemir Inj 1,000 UNIT/10 ML Vial SQ SCH ×2 (09:24→21:25)
--- NOTE | 2018-02-04 10:56 | P.PNPSY ---
Subjective Remarks: Patient seen for follow, chart reviewed. Discussion nursing staff reported the patient with no behavioral changes, has become cooperative with staff. Patient was found lying in hospital bed eating a snack to be in good spirits. Patient states that he is feeling good, ports eating and drinking well, no physical meds at this time. Patient states working physical therapy feeling well. Patient continues with baseline confusion. Review of Systems All other systems reviewed negative except as stated in HPI Mental Status Examination Appearance: Appropriate Consciousness: Alert Orientation: Person, Place Motor Activity: Normal gait Speech: Unremarkable Language: Adequate Fund of Knowledge: Inadequate Attention and Concentration: Adequate Memory: Impaired Mood: Appropriate Affect: Appropriate Thought Process & Associations: Intact, Loose associations Thought Content: Appropriate Hallucination Type: None Delusion Type: None Suicidal Ideation: No Suicidal Plan: No Suicidal Intention: No Homicidal Ideation: No Homicidal Plan: No Homicidal Intention: No Insight: Poor Judgment: Poor Assessment and Plan - Assessment (1) Dementia Code(s): F03.90 - Unspecified dementia without behavioral disturbance Status: Acute - Plan Plan: Patient continues with baseline confusion, at times perseverative on calling his multiple times a day but redirectable. She was no behavioral disturbances no aggressive behavior. We will continue current treatment. We will continue to monitor mood and behavior. Discharge planning in progress. Justification for Continued Inpatient Stay: At risk of further decompensation a lower level care. (1) Dementia Qualifiers: Dementia type: Alzheimer's disease Alzheimer's disease onset: early-onset Dementia behavioral disturbance: with behavioral disturbance Qualified Code(s) : G30.0 - Alzheimer's disease with early onset; F02.81 - Dementia in other diseases classified elsewhere with behavioral disturbance
[2018-02-05] MEDS: LORazepam 0.5 MG Tablet PO SCH ×5 (01:38→23:47)
[2018-02-05] MEDS: Levothyroxine 88 MCG Tablet PO SCH (06:55)
[2018-02-05] MEDS: Senna/Docusate Sodium 8.6/50 MG Tablet PO SCH ×2 (09:43→20:50)
[2018-02-05] MEDS: Insulin Detemir Inj 1,000 UNIT/10 ML Vial SQ SCH ×2 (10:00→21:47)
[2018-02-05] MEDS: Insulin NovoLOG Aspart Correctional Sugar Inj SQ SCH ×4 (10:00→21:49)
--- NOTE | 2018-02-05 17:16 | P.PNPSY ---
Subjective Remarks: Patient seen in his room with nurse Eddie, chart reviewed, patient eating his dinner on the side of his bed he is alert calm pleasantly confused no behavior problems, compliant medication Review of Systems All other systems reviewed negative except as stated in HPI Mental Status Examination Appearance: Appropriate Consciousness: Alert Orientation: Person, Place Motor Activity: Normal gait Speech: Unremarkable Language: Adequate Fund of Knowledge: Inadequate Attention and Concentration: Adequate Memory: Impaired Mood: Appropriate Affect: Appropriate Thought Process & Associations: Intact, Loose associations Thought Content: Appropriate Hallucination Type: None Delusion Type: None Suicidal Ideation: No Suicidal Plan: No Suicidal Intention: No Homicidal Ideation: No Homicidal Plan: No Homicidal Intention: No Insight: Poor Judgment: Poor Assessment and Plan - Assessment (1) Dementia Code(s): F03.90 - Unspecified dementia without behavioral disturbance Status: Acute - Plan Plan: Patient remains pleasantly confused the low behavioral problems, compliant medication Justification for Continued Inpatient Stay: At this time patient would decompensate a place to a lower level of care Discharge Planning: To be determined (1) Dementia Qualifiers: Dementia type: Alzheimer's disease Alzheimer's disease onset: early-onset Dementia behavioral disturbance: with behavioral disturbance Qualified Code(s) : G30.0 - Alzheimer's disease with early onset; F02.81 - Dementia in other diseases classified elsewhere with behavioral disturbance
[2018-02-06] MEDS: Levothyroxine 88 MCG Tablet PO SCH (05:37)
[2018-02-06] MEDS: LORazepam 0.5 MG Tablet PO SCH ×2 (05:37→12:40)
[2018-02-06] MEDS: Senna/Docusate Sodium 8.6/50 MG Tablet PO SCH (08:10)
[2018-02-06] MEDS: Insulin NovoLOG Aspart Correctional Sugar Inj SQ SCH ×2 (08:13→12:31)
[2018-02-06] MEDS: Insulin Detemir Inj 1,000 UNIT/10 ML Vial SQ SCH (09:15)
--- NOTE | 2018-02-06 13:15 | P.TTN ---
- Patient Problems Problems: 1. Discharge planning 2. Medication compliance 3. Knowledge deficit 4. Lack of coping skills - Progress Toward Goals Provider Present: Dr. Taran Serrano Provider Input: 02/03/18: Spouse is involved in placemnt decision (per her role as legally designated Health Care Surrogate and Guardian Advocate). Spouse continue to be consulted as to her input and counselor progress for pt dc options. 01/29/2018; patient has no reported mood or behavior concerns, stable on current med dosage. 01/28/2018; patient has some mood shift, however he is stable and compliant with medication and treatment no needed adjustment or changes required. Facility to meet with pt for placement. 01/22/18: Per , goal for pt is return to [facility], her prior living environment. Update per 11:00am from Shey, [facility] refusing to accept placement, Shey to complete 3008 and seek alternative placement. Nurse(s) Present: OBDULIA Arnold Nurse Input: 02/03/18: No nurse present. 01/29/2018; patient is eating meals and taking his medications; has a lack of impluse control, but no real behavior concerns. 01/28/2018; patient has no behavior issues outside of lack of impluse , and at times somewhat intrusive with demands. Patient is eating and taking his medication, requires redirection, anc prompting at times. Pt is better, not screaming today, A and O X1, cognitive deficits, seclusive, medication compliant, better sleep. 01/22/18: Per OBDULIA Baugh; Pt is compliant with medications, no behaviors noted. Psychiatric Counselors Present: Shey Burgess NATHAN, Other Psychiatric Therapist Input: 02/03/18: Lynette present; continuing to contact facilities to find suitable placement. 01/29/2018; counselor continues to fax [facility] skill fdc providers, [facility] has accepted patient however his have refused to accept placement with this provider. Counselor have staff this case with supervisors (Jacqueline Morales and Chrissy Ochoa to request assistance). 01/28/2018; counselor continues to fax packages to [facility] skill nursing providers, several nursing homes have denied patient due to reported history of behavior. Pt had an outburst last week. 01/22/18: Shey to f/u with previous living situation ([facility]) for pt to return. Group Spec/RT/OT/REYES Present: June Santiago, GPS Group Spec/RT/OT/REYES Input: 02/03/18: Pt has not been attending groups, pt consistently refuses to attend. 01/29/2018; per RT patient has been unwilling to participate with groups or activities. 01/28/2018; patient has been unwillng to participate with groups. Pt participates in on unit groups with assistance. 01/22/18: Pt participate on unit in groups, requires encouragement. - Documentation Scribe: Jorge Angel MS, OTR Teaching Recipient: Patient
--- NOTE | 2018-02-06 13:17 | P.TTN ---
- Patient Problems Problems: 1. Discharge planning 2. Medication compliance 3. Knowledge deficit 4. Lack of coping skills - Progress Toward Goals Provider Present: Dr. Taran Serrano (this is duplicate note) Provider Input: 02/03/18: Spouse is involved in placemnt decision (per her role as legally designated Health Care Surrogate and Guardian Advocate). Spouse continue to be consulted as to her input and counselor progress for pt dc options. 01/29/2018; patient has no reported mood or behavior concerns, stable on current med dosage. 01/28/2018; patient has some mood shift, however he is stable and compliant with medication and treatment no needed adjustment or changes required. Facility to meet with pt for placement. 01/22/18: Per , goal for pt is return to [facility], her prior living environment. Update per 11:00am from [facility] refusing to accept placement, Shey to complete 3008 and seek alternative placement. Nurse(s) Present: OBDULIA Arnold Nurse Input: 02/03/18: No nurse present. 01/29/2018; patient is eating meals and taking his medications; has a lack of impluse control, but no real behavior concerns. 01/28/2018; patient has no behavior issues outside of lack of impluse , and at times somewhat intrusive with demands. Patient is eating and taking his medication, requires redirection, anc prompting at times. Pt is better, not screaming today, A and O X1, cognitive deficits, seclusive, medication compliant, better sleep. 01/22/18: Per OBDULIA Baugh; Pt is compliant with medications, no behaviors noted. Psychiatric Counselors Present: DIONE Oliveros, Other Psychiatric Therapist Input: 02/03/18: Lynette present; continuing to contact facilities to find suitable placement. 01/29/2018; counselor continues to fax [facility] skill fci providers, [facility] has accepted patient however his have refused to accept placement with this provider. Counselor have staff this case with supervisors (Jacqueline Morales and Chrissy Ochoa to request assistance). 01/28/2018; counselor continues to fax packages to [facility] skill nursing providers, several nursing homes have denied patient due to reported history of behavior. Pt had an outburst last week. 01/22/18: Shey to f/u with previous living situation ([facility]) for pt to return. Group Spec/RT/OT/REYES Present: June Santiago, JENNY Group Spec/RT/OT/REYES Input: 02/03/18: Pt has not been attending groups, pt consistently refuses to attend. 01/29/2018; per RT patient has been unwilling to participate with groups or activities. 01/28/2018; patient has been unwillng to participate with groups. Pt participates in on unit groups with assistance. 01/22/18: Pt participate on unit in groups, requires encouragement. - Documentation Scribe: Jorge Angel, MS, OTR Teaching Recipient: Patient
--- NOTE | 2018-02-06 16:41 | P.DSPSY ---
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 He presents under [place] act [place] [employer]. According to his paperwork he was being combative with staff at the [place] [facility]. The patient denies this, he is under the impression that he is on staff there. He reports that the supervisor finishing department of the place was being rude to other staff members. Symptoms are moderate, likely aggravated by dementia. Chart was reviewed. Psychiatric evaluation the patient is diffusely confused, reports feeling better , denies distress, denies pain, he reports good mood. The patient knows that he is in [place], but he thinks is September 2019. He does not remember the reason of his hospitalization. He denies suicidal and homicidal ideation, denies visual and auditory hallucinations. The patient has not displayed any agitation or aggressive behavior in the ER. He is not acutely paranoid at the moment. Tobacco Use In Past 30 Days: No How Often Do You Have a Drink Containing Alcohol: Never Hospital Course: Patient is a 62-year-old man, who carries a diagnosis schizoaffective disorder, dementia, domiciled an assisted living facility, who came into the ED due to aggressive behavior towards staff at his [place] [facility], noted to be confused, and admitted to the inpatient psychiatry for further evaluation and management. Patient continued on quetiapine 200mg PO QID, lorazepam 0.5mg PO q6hrs, depakene 250mg daily, depakene 1500mg PO HS, donepezil 10mg PO daily, continued on medications for chronic medical illnesses which he tolerated well with no notable adverse drug reactions. Patient was noted with improvement in mood, noted to have denied having any suicidal ideations since admission and no further episodes of behavioral dyscontrol. He was observed by staff to have baseline confusion and was noted to participate with staff adequately. Patient was noted to participate in self care with assistance, engaging with staff and maintaining adequate hygiene. Patient reported feeling hopeful, future oriented and motivated to continue to with recommendations and treatment. Treatment team was able to set up referral to group home facility where he would receive his care and which the patient can continue current medication regimen. Upon discharge patient stated that she was feeling good, reported feeling well with the treatment, as well as motivation to continue recommendations and denied any SI, HI, perceptual disturbances or delusions. Weighing the acute, chronic, and protective factors and based on the available evidence, I .net architect to a reasonable degree of medical certainty that the patient is at low imminent risk of harm to self or others from a mental illness as defined under the Grace act and his level of function is adequate as observed on the unit for planned level of outpatient care. Patient was counseled regarding warning signs for need to return to the psychiatric emergency room as part of a general safety plan. Patient advised to call 911 or go nearest ED in case of emergency. Patient agreed with plan. - Discharge Discharge Date: 02/06/18 - Discharge Diagnosis (1) Schizoaffective disorder Code(s): F25.9 - Schizoaffective disorder, unspecified Status: Acute Discharge Disposition: Care Home Facility - Discharge Instructions Discharge Diet: Heart Healthy Diet Activities You Can Perform: Weight Bearing As Tolerat - Discharge Time > 30 minutes Mental Status Examination Appearance: Appropriate Consciousness: Alert Orientation: Person, Place Motor Activity: Normal gait Speech: Unremarkable Language: Adequate Fund of Knowledge: Inadequate Attention and Concentration: Adequate Memory: Impaired Mood: Appropriate Affect: Appropriate Thought Process & Associations: Intact, Logical Thought Content: Appropriate Hallucination Type: None Delusion Type: None Suicidal Ideation: No Suicidal Plan: No Suicidal Intention: No Homicidal Ideation: No Homicidal Plan: No Homicidal Intention: No Insight: Poor Judgment: Impulsive Discharge/Advance Care Plan - Results Vital Signs: Last Vital Signs Temp 96.5 F L 02/06/18 06:59 Pulse 84 02/06/18 06:59 Resp 16 02/06/18 06:59 BP 116/79 02/06/18 06:59 Pulse Ox 96 09/13/18 06:59 Lab Results: Abnormal Lab Results 02/05/18 02/05/18 02/06/18 16:56 20:48 07:10 POC Glucose 115 H 277 H 110 02/06/18 11:32 POC Glucose 252 H Laboratory Results Hemoglobin A1c 8.5 % (4.3-6.0) H 01/09/18 07:24 Triglycerides 215 mg/dL (42-150) H 01/09/18 07:24 Cholesterol 166 mg/dL (120-200) 01/09/18 07:24 LDL Cholesterol, Calc 86 mg/dL (0-99) 01/09/18 07:24 HDL Cholesterol 37.2 mg/dL (40.0-60.0) L 01/09/18 07:24 TSH 1.350 uIU/mL (0.358-3.740) 01/07/18 22:05 Urine Culture Comments Culture not ind 01/07/18 22:45 Valproic Acid 77 mcg/mL (50-100) 01/26/18 07:15 Summary of Procedures: none Pending Results: None - Medications Number of antipsychotic medications at discharge: 1 - Discharge Care Plan Goals to Promote Your Health: * To prevent worsening of your condition and complications * To maintain your health at the optimal level Directions to Meet Your Goals: Take your medications as prescribed Follow your dietary instruction Follow activity as directed Keep your appointments as scheduled Take your immunizations and boosters as scheduled If your symptoms worsen call your PCP, if no PCP go to Urgent Care Center or Emergency Room For 17/12 questions related to your inpatient stay or results of tests pending at discharge, please contact Dr. Salvatore Serrano MD at Smoking is Dangerous to Your Health. Avoid second hand smoking
== END 2018-02-06 20:00 ==
LOC: NEPD 21:34 → NEDA 01-08 09:39 → H4EA 01-08 10:59
PROVIDERS: ADMIT Student in an Organized Health Care Education/Training Program; ATTEND Student in an Organized Health Care Education/Training Program